=== PATIENT | female | born 1945 | race Caucasian/White ===

== ENCOUNTER 2020-05-16 13:46 | Emergency (ER) | payer OTHER, MEDICAID, SELFPAY ==
[2020-05-16 13:59] VITALS: BP 135/83; PULSE 60; RESP 16; TEMP 37; O2SAT 95; BMI 33.8
--- NOTE | 2020-05-16 14:03 | CT_ITS ---
EXAMINATION: CT CHEST WITHOUT CONTRAST CLINICAL INFORMATION: Active TB. Question positive PPD test COMPARISON: None TECHNIQUE: Multidetector volumetric CT imaging of the chest was done. Axial MIP volume rendering provided. Sagittal and coronal reformatted images were obtained. This CT examination was performed using dose optimization techniques as appropriate, variously including the following: *Automated exposure control *Adjustment of mA and/or kV according to patient size (this includes techniques or standardized protocols for targeted exams where dose is matched to indication/reason for exam; i.e. 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 LUNGS: The lungs are well-expanded. There are several pulmonary nodules. A 2 mm pulmonary nodule right upper lobe image 46/5, 2 nodules measuring 2 mm on image 51/5, 3 mm nodule left upper lobe image 75/5, 3 mm nodule left upper lobe axial image 93/5. No additional parotid nodules, mass or consolidation seen. There is left basilar compressive atelectasis. MEDIASTINUM: The thyroid lobes are symmetrical and normal. The central trachea and the bronchi widely patent. Heart size and the great vessels are normal caliber. There are pacer electrodes in right atrium and right ventricle. No abnormal lymph nodes seen. There are coronary artery calcifications. No pericardial effusion seen PLEURA: There is small left pleural effusion with underlying atelectasis. AXILLA: No abnormal lymph nodes seen. There is a pacer hardware along the left anterior abdomen. UPPER ABDOMEN: Visualized liver, spleen, pancreas and bilateral adrenal glands are unremarkable. OSSEOUS STRUCTURES: No lytic or sclerotic process seen. CT/CT chest wo con IMPRESSION: Several pulmonary nodules. No abnormal mediastinal or axillary lymph nodes seen. Small left pleural effusions with mild compressive atelectasis left lung base.
--- NOTE | 2020-05-16 15:04 | ED.GENADULT ---
HPI - General Adult General Chief complaint: General Medical Stated complaint: + TB TEST PER SNF, NO COMPLAINTS FROM PT Time Seen by Provider: 05/16/20 14:03 Source: patient Mode of arrival: EMS Limitations: language barrier History of Present Illness HPI narrative: patient sent to the ED from [facility] due to positive PPD results. Patient is asymptomatic. Related Data Allergies Allergy/AdvReac Type Severity Reaction Status Date / Time Sulfa (Sulfonamide Allergy Unknown Unknown Verified 05/16/20 14:10 Antibiotics) tuberculin, purified protein Allergy Unknown Verified 05/16/20 14:10 deriva [From Tubersol] Review of Systems Review of Systems: Yes all other systems are reviewed and are negative Constitutional: Constitutional: Reports as per HPI, Reports no additional constitutional complaints, Denies anorexia, Denies body ache(s), Denies chills, Denies fatigue, Denies fever(s), Denies frequent falls and Denies headache(s) Eyes: Eyes: Reports as per HPI, Reports no additional eye complaints, Denies blind spots, Denies blurry vision, Denies exophthalmos, Denies change in vision, Denies decreased night vision, Denies diplopia, Denies itchy eyes, Denies loss of peripheral vision, Denies loss of vision and Denies other visual disturbances ENT: Reports system reviewed and no additional complaints, except as documented, Reports as per HPI and Denies headache(s) Cardiovascular: Cardiovascular: Reports as per HPI, Reports no additional cardiovascular complaints, Denies painful fingertips, Denies chest pain, Denies chest pain at rest, Denies chest pain with activity, Denies Epigastric Pain, Denies radiating jaw, neck or arm pain, Denies dyspnea, Denies dyspnea on exertion, Denies orthopnea and Denies paroxysmal nocturnal dyspnea Respiratory: Respiratory: Reports as per HPI, Reports no additional respiratory complaints, Denies no additional respiratory complaints, Denies change in phlegm color, Denies chest congestion, Denies cough, Denies dyspnea and Denies dyspnea on exertion Gastrointestinal: Gastrointestinal: Reports as per HPI, Reports no additional gastrointestinal complaints, Denies abdominal pain, Denies belching, Denies melena, Denies bloating, Denies hematochezia, Denies dyspepsia, Denies heartburn, Denies diarrhea, Denies loose stools and Denies nausea Genitourinary: Genitourinary: Denies dysuria, Denies pelvic pain, Denies urinary incontinence, Denies urinary hesitancy and Denies urinary urgency Neurologic: Denies frequent falls, Denies headache(s) and Denies loss of vision Endocrine: Endocrine: Denies fatigue Allergic/Immunologic: Allergic/Immunologic: Denies itchy eyes PMFSH Past Medical History Medical History (Updated 05/16/20 @ 16:41 by SUMA Desir) Anxiety Depressed affect Dysphagia HTN (hypertension) Hyperlipemia Pacemaker Parkinson disease Paroxysmal A-fib Restless leg syndrome Surgical History (Updated 05/16/20 @ 14:08 by Aide Clark) History of bladder surgery Social History Social History Smoking Status: Never smoker Use of substances other than those prescribed or required for medical reasons: No Advance Directives: No Advance Directives Information Provided: No Physical Exam Vital Signs: Vital Signs: Vital Signs Temp Pulse Resp BP Pulse Ox 05/16/20 16:30 97.9 F 59 18 177/73 H 95 05/16/20 13:59 98.6 F 60 16 135/83 95 Body Mass Index 33.8 Const: General: cooperative, healthy appearing, comfortable, no acute distress, well developed and awake Orientation/consciousness: oriented to person, oriented to place, oriented to time and patient oriented x3 HENMT: Head: Yes normal to inspection and Yes No palpable skull fracture present Eyes: General: appearance normal, both eyes and all related structures Neck: Neck: Yes normal visual inspection, Yes full ROM, Yes no lymphadenopathy, No no meningeal signs, No positive Brudzinski's sign and No positive Kernig's sign Chest: Chest palpation & inspection: normal inspection of the chest, normal palpation of entire chest wall and normal inspection of the chest Breast/axilla inspection: inspection of breasts abnormal Resp: Effort & Inspection: normal respiratory effort, able to speak in complete sentences, normal respiratory pattern, no grunting, not labored, no nasal flaring, no pursed lip breathing, no segmental paradox chest wall movement, no stridor, not tachypneic, no tracheal deviation and no tripod positioning Auscultation: clear to auscultation bilaterally Cardio: Jugular venous distension: no JVD Heart sounds: S1 normal heart sound present and S2 normal heart sound present GI: Inspection: Yes normal to inspection and No abdominal wall ecchymosis Palpation (GI): Soft to palpation, not firm, nontender, no guarding and not rigid : General: No CVA tenderness and Yes no CVA tenderness Back/Spine/Pelvis: Back: no CVA tenderness, No CVA tenderness and No back tenderness Skin: Other: bilateral forearms positive for raised erythematous PPD est Neuro: Other: Patient has tremors due to history Parkinson's. General: oriented to person, oriented to place, oriented to time, patient oriented x3, No no meningeal signs and CN's II-XI intact bilaterally Cranial nerves: Yes CN's II-XII intact bilaterally Extrem: General: Yes normal to inspection and Yes full ROM Course Course Course Narrative: Will send patient for dry. Chest CT to evaluate for possible active TB. Patient presently asymptomatic. Presently no labs indicated. Reevaluation(s) Reevaluation #1: Chest CT negative for any cavitation or description that states active TB. Patient recommended to follow-up with pulmonology for reading of multiple pulmonary nodules, will need to rule of possible pulmonary cancer. patient states she always test positive for PPD TB test. Patient is from [place]. Case and imaging discussed with Dr. Vera who agrees that patient is not having active TB and can be discharged.. Patient discharge papers prepared with copy of Chest CT scan for [facility]. Time: 16:[address] [facility] Narrative Medical decision making narrative: Patient does not have active TB Discharge Plan Discharge Clinical Impression: Pulmonary nodule Patient Disposition: Home, Self-Care Instructions: Pulmonary Nodules (ED) Additional Instructions: Return to the ED for any fever, chills chest pain, shortness of breath, weakness, dizziness, or any other concerning symptoms. Please follow-up with the PCP Print Language: Ukrainian
--- NOTE | 2020-05-16 15:44 | PC.NURSE ---
pt resting comfortably in the stretcher, denies pain/cough, vs stable
[2020-05-16 16:30] VITALS: BP 177/73; PULSE 59; RESP 18; TEMP 36.6; O2SAT 95
--- NOTE | 2020-05-16 17:26 | PC.NURSE ---
attempting to call [facility] to give report but no answer at this time
== END 2020-05-16 17:45 | disposition home or self-care (01) ==
PROVIDERS: Emergency Provider Emergency Medicine
DX: R91.1 Solitary pulmonary nodule (principal); R76.11 Nonspecific reaction to tuberculin skin test without active tuberculosis; Z79.899 Other long term (current) drug therapy
CPT/HCPCS: 71250; 99284

== ENCOUNTER → 2020-05-26 14:40 | Outpatient (BNVA) | payer OTHER, MEDICAID, SELFPAY | PROVIDERS: PCP Family Medicine; Visit Provider Internal Medicine | DX: Z76.89 Persons encountering health services in other specified circumstances (principal) ==

== ENCOUNTER 2020-08-16 12:37 | Emergency (ER) | payer OTHER, MEDICAID, MEDICARE, SELFPAY ==
[2020-08-16 12:47] VITALS: BP 162/100; BP 174/101; PULSE 62; PULSE 75; RESP 18; TEMP 36.8; O2SAT 97; BMI 28.9
--- NOTE | 2020-08-16 12:52 | ED.SEIZURE ---
HPI - Seizure General Chief Complaint: Seizure Stated Complaint: SEIZURE @ 11:45AM Time Seen by Provider: 08/16/20 12:52 Source: EMS and RN notes reviewed Mode of arrival: EMS Limitations: altered mental status History of Present Illness HPI Narrative: Patient from detention with history of Parkinson disease lung nodules in the CT scan on 05/16 brought by EMS for witnessed seizure lasted for 1 minute, generalized tonic-clonic with postictal on arrival. No head injury no vomiting no incontinence no prior history of seizures MD complaint: seizure Description of Episode: loss of consciousness and tonic-clonic movement Duration of episode: 1 -: minutes(s) Witnessed: Yes - by Bystander Trauma: No Seizure History: No Place: snf Treatments prior to arrival: none Related Data Previous Rx's Medication Instructions Recorded aspirin 81 mg tablet,delayed 81 mg PO DAILY 30 Days #30 tab 05/26/20 release atorvastatin 40 mg tablet 40 mg PO DAILY #30 tab 05/26/20 carbidopa 25 mg tablet 25 mg PO Q6H #120 tab 05/26/20 carbidopa 50 mg-levodopa 200 1 tab PO 6XD #150 tab 05/26/20 mg-entacapone 200 mg tablet clonazepam 0.25 mg disintegrating 0.25 mg PO DAILY #30 tab 05/26/20 tablet docusate sodium 100 mg capsule 100 mg PO DAILY #30 cap 05/26/20 escitalopram oxalate 10 mg tablet 10 mg PO DAILY #30 tab 05/26/20 isosorbide mononitrate 30 mg 30 mg PO DAILY #30 tab 05/26/20 tablet,extended release 24 hr magnesium hydroxide 400 mg/5 mL 5 ml PO DAILY PRN #3000 ml 05/26/20 oral suspension metoprolol tartrate 25 mg tablet 12.5 mg PO BID #60 tab 05/26/20 mirtazapine 7.5 mg tablet 7.5 mg PO BEDTIME #30 tab 05/26/20 polyethylene glycol 3350 17 17 g PO DAILY #238 g 05/26/20 gram/dose oral powder ropinirole 0.5 mg tablet 0.5 mg PO TID #90 tab 05/26/20 sennosides 8.6 mg capsule 8.6 mg PO BEDTIME PRN #30 cap 05/26/20 sotalol 80 mg tablet 80 mg PO BID 30 Days #60 tab 05/26/20 levetiracetam [Keppra] 250 mg PO BID #60 tab 08/16/20 Allergies Allergy/AdvReac Type Severity Reaction Status Date / Time Sulfa (Sulfonamide Allergy Unknown Unknown Verified 05/26/20 15:19 Antibiotics) tuberculin, purified protein Allergy Unknown Verified 05/26/20 15:19 deriva [From Tubersol] Review of Systems Review of Systems: Yes Unobtainable due to mental status (Postictal) [facility] Past Medical History Medical History Anxiety Depressed affect Dysphagia HTN (hypertension) Hyperlipemia 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 Pacemaker Parkinson disease Paroxysmal A-fib Pulmonary nodules/lesions, multiple Restless leg syndrome Surgical History History of bladder surgery Social History Social History Alcohol intake: unknown Smoking Status: Unknown if ever smoked Use of substances other than those prescribed or required for medical reasons: No Advance Directives: No Advance Directives Information Provided: No Physical Exam Vital Signs: Vital Signs: Last Vital Signs Temp 98.3 F 08/16/20 12:47 Pulse 63 08/16/20 16:00 Resp 18 08/16/20 16:00 BP 97/50 L 08/16/20 16:00 Pulse Ox 93 08/16/20 16:00 Body Mass Index 28.9 Const: General: healthy appearing, comfortable, no acute distress and patient obtunded Orientation/consciousness: patient obtunded HENMT: Head: Yes normocephalic and Yes atraumatic Ears: hearing grossly normal bilaterally Face and sinus: Yes normal facial exam Mouth: Normal oral and palatal mucosa present and lip abnormal (Superficially bite lower lip on the left side) Eyes: General: appearance normal, both eyes and all related structures Conjunctivae: conjunctivae normal Sclerae: sclerae normal Pupils: Equal, round and reactive pupils present Neck: Neck: Yes normal visual inspection, Yes full ROM, Yes no lymphadenopathy, Yes no meningeal signs, Yes trachea midline and Yes supple Chest: Chest palpation & inspection: normal inspection of the chest and normal palpation of entire chest wall Resp: Effort & Inspection: normal respiratory effort Auscultation: clear to auscultation bilaterally, no crackles, no rales, no rhonchi and no wheezes Cardio: Jugular venous distension: no JVD Rate: regular rate Rhythm: regular rhythm Heart sounds: S1 normal heart sound present and S2 normal heart sound present Peripheral pulses: Peripheral pulses 2+ throughout GI: Inspection: Yes normal to inspection Palpation (GI): Soft to palpation, nontender and no guarding : General: Yes no CVA tenderness Back/Spine/Pelvis: Back: no CVA tenderness Thoracic/Lumbar Spine: thoracic and lumbar spine normal to inspection Skin: General skin exam: no rashes or lesions noted Neuro: General: moves all extremities, no meningeal signs and patient obtunded Cranial nerves: Yes Equal, round and reactive pupils present Extrem: General: Yes normal to inspection, Yes no calf tenderness and No pedal edema Course Course Course Narrative: Patient with new onset seizure given Ativan and Keppra initial workup showed elevated troponin with T inversion in anterior leads no old EKGs available. Patient denied any chest pain will repeat a troponin. Started on Keppra twice daily 250 mg and advised to follow-up with neurologist. Patient signed out Dr. Rivera pending repeat troponin report MDM - Seizure MDM Narrative Medical decision making narrative: Patient with new onset seizure with with nonspecific EKG changes and elevated troponin patient denied any chest pain received Ativan and Keppra in the ER will recheck the troponin plan to continue on Keppra and follow up as outpatient with neurologist Differential Diagnosis Differential diagnosis: Likely new onset seizure Lab Data Attestation: I reviewed the patient's lab results. Result diagrams: 08/16/20 13:03 08/16/20 13:03 Labs: Lab Results 08/16/20 08/16/20 08/16/20 Range/Units 13:03 13:03 13:03 WBC 9.3 (4.8-10.8) X10*3/uL RBC 4.52 (4.20-5.50) X10*6/uL Hgb 12.2 (12.0-16.0) g/dl Hct 36.8 L (37-47) % MCV 81.4 (80-98) fL MCH 27.0 (27.0-33.0) pg MCHC 33.2 (31.0-35.0) g/dl RDW 15.1 (11.0-16.0) % Plt Count 310 (160-400) X10*3/uL MPV 12.3 (9.4-12.3) fL Immature Gran % (Auto) 0.5 H (0.0-0.4) % Neut % (Auto) 88.8 H (45-73) % Lymph % (Auto) 7.3 L (20-40) % Pratt % (Auto) 3.2 (2-11) % Eos % (Auto) 0.1 (0-4) % Baso % (Auto) 0.1 (0-2) % Lymph # (Auto) 0.7 L (1.2-4.9) X10*3/uL Pratt # (Auto) 0.3 (0.1-1.2) X10*3/uL Eos # (Auto) 0.0 (0.0-0.4) X10*3/uL Baso # (Auto) 0.0 (0.0-0.2) X10*3/uL Abs Immat Gran (auto) 0.05 H (0.00-0.03) X10*3/uL Absolute Neuts (auto) 8.2 (2.0-8.3) X10*3/uL Absolute Nucleated RBC 0.060 H (0.0-0.012) X10*3/uL Nucleated RBC % (auto) 0.6 H (0.0-0.2) /100WBC Smear Tech's Comments VERIFIED PT 15.3 H (10.8-13.0) SEC INR 1.3 H (0.9-1.1) APTT 28.0 (24.1-38.0) SEC Sodium 143 (135-145) mmol/L Potassium 3.6 (3.3-5.1) mmol/l Chloride 100 (96-108) mmol/L Carbon Dioxide 20 L (22-29) mmol/L Anion Gap 27 H (12-20) BUN 31 H (9-16) mg/dL Creatinine 0.74 (0.5-1.4) mg/dL Estim Creat Clear Calc 55.4 Estimated GFR > 60 Random Glucose 126 H (60-115) mg/dL Calcium 9.2 (8.4-10.2) mg/dL Magnesium 2.2 (1.6-2.6) mg/dL Total Bilirubin 0.9 (0.0-1.0) mg/dL Direct Bilirubin 0.5 (0.0-0.5) mg/dL AST 10 (5-31) U/L ALT < 6 (0-31) U/L Alkaline Phosphatase 133 H (39-117) U/L Troponin I High Sens (<3.5-17.0) ng/L Total Protein 6.5 (6.5-8.0) g/dL Albumin 3.7 (3.5-5.0) g/dL Urine Color Urine Appearance Urine pH (5.0-8.0) Ur Specific Strandquist (1.005-1.025) Urine Protein (NEG-TRACE) MG/DL Urine Glucose (UA) (NEG) MG/DL Urine Ketones (NEG) MG/DL Urine Blood (NEG) Urine Nitrite (NEG) Ur Leukocyte Esterase (NEG) Urine RBC (0) /HPF Urine WBC (0-4) /HPF Ur Squamous Epith Cells /LPF Calcium Oxalate Crystal /LPF Amorphous Sediment /LPF Urine Bacteria /LPF Urine Mucus /LPF 08/16/20 08/16/20 Range/Units 13:03 14:27 WBC (4.8-10.8) X10*3/uL RBC (4.20-5.50) X10*6/uL Hgb (12.0-16.0) g/dl Hct (37-47) % MCV (80-98) fL MCH (27.0-33.0) pg MCHC (31.0-35.0) g/dl RDW (11.0-16.0) % Plt Count (160-400) X10*3/uL MPV (9.4-12.3) fL Immature Gran % (Auto) (0.0-0.4) % Neut % (Auto) (45-73) % Lymph % (Auto) (20-40) % Pratt % (Auto) (2-11) % Eos % (Auto) (0-4) % Baso % (Auto) (0-2) % Lymph # (Auto) (1.2-4.9) X10*3/uL Pratt # (Auto) (0.1-1.2) X10*3/uL Eos # (Auto) (0.0-0.4) X10*3/uL Baso # (Auto) (0.0-0.2) X10*3/uL Abs Immat Gran (auto) (0.00-0.03) X10*3/uL Absolute Neuts (auto) (2.0-8.3) X10*3/uL Absolute Nucleated RBC (0.0-0.012) X10*3/uL Nucleated RBC % (auto) (0.0-0.2) /100WBC Smear Tech's Comments PT (10.8-13.0) SEC INR (0.9-1.1) APTT (24.1-38.0) SEC Sodium (135-145) mmol/L Potassium (3.3-5.1) mmol/l Chloride (96-108) mmol/L Carbon Dioxide (22-29) mmol/L Anion Gap (12-20) BUN (9-16) mg/dL Creatinine (0.5-1.4) mg/dL Estim Creat Clear Calc Estimated GFR Random Glucose (60-115) mg/dL Calcium (8.4-10.2) mg/dL Magnesium (1.6-2.6) mg/dL Total Bilirubin (0.0-1.0) mg/dL Direct Bilirubin (0.0-0.5) mg/dL AST (5-31) U/L ALT (0-31) U/L Alkaline Phosphatase (39-117) U/L Troponin I High Sens 55.1 H (<3.5-17.0) ng/L Total Protein (6.5-8.0) g/dL Albumin (3.5-5.0) g/dL Urine Color DARK YELLOW Urine Appearance HAZY Urine pH 6.5 (5.0-8.0) Ur Specific Strandquist >= 1.030 H (1.005-1.025) Urine Protein 1+ H (NEG-TRACE) MG/DL Urine Glucose (UA) NEG (NEG) MG/DL Urine Ketones >=80 (NEG) MG/DL Urine Blood NEG (NEG) Urine Nitrite NEG (NEG) Ur Leukocyte Esterase NEG (NEG) Urine RBC 0 (0) /HPF Urine WBC 0 (0-4) /HPF Ur Squamous Epith Cells 1+ /LPF Calcium Oxalate Crystal 1+ /LPF Amorphous Sediment 1+ /LPF Urine Bacteria NONE /LPF Urine Mucus 3+ /LPF ECG Data Attestation: I personally reviewed and interpreted this ECG as follows: Interpretation: Normal sinus rhythm with heart rate of 72 beats per minute T inversion in V1 to V6 Charisma little areas no previous EKGs available no acute ST elevation normal axis, prolonged QT interval to [address] T wave changes Discharge Plan Discharge Clinical Impression: New onset seizure Patient Disposition: Xfer SNF Instructions: Epilepsy (ED) Additional Instructions: Take medication as prescribed. Follow-up with neurologist Prescriptions: New levetiracetam [Keppra] 250 mg tablet 250 mg PO BID Qty: 60 RF: 0
--- NOTE | 2020-08-16 12:55 | ECG_ITS ---
Test Reason : SIEZURE Blood Pressure : / mmHG Vent. Rate : 072 BPM Atrial Rate : 072 BPM P-R Int : 112 ms QRS Dur : 092 ms QT Int : 460 ms P-R-T Axes : 023 -15 -38 degrees QTc Int : 503 ms Sinus rhythm with Premature atrial complexes ST & T wave abnormality, consider inferior ischemia ST & T wave abnormality, consider anterolateral ischemia Prolonged QT Abnormal ECG No previous ECGs available Referred By: Marcio Rahman Electronically Signed By:Nirmal Magaña
--- NOTE | 2020-08-16 12:55 | CT_ITS ---
EXAMINATION: CT BRAIN WITHOUT CONTRAST. CHEST X-RAY. CLINICAL INFORMATION: New onset of seizures. COMPARISON: None TECHNIQUE: 5 mm thin axial and reformatted 2 mm thin sagittal and coronal images of brain were obtained. DLP 698. Chest AP upright portable FINDINGS: BRAIN: There is no acute intra-axial, extra-axial bleed, masses or midline shift. There is no acute infarct in evolution. The lateral ventricles are symmetrical but enlarged. There is diffuse periventricular hypodensity in both cerebral hemispheres without mass effect or edema. Bone windows reveal no calvarial abnormality. There is no scalp abnormality seen. Bilateral paranasal sinuses are well-aerated with air fluid level left sphenoid sinus. CHEST X-RAY: The lungs are hypoexpanded but clear. There is mild blunting of left CP angle from pleural thickening or effusion. The heart size and pulmonary vascularity is normal. There are dual pacer electrodes in right atrium and right ventricle. No gross bony abnormality seen CT/CT head/brain wo con IMPRESSION: No acute intracranial process seen. Age-related cerebral volume loss with chronic small vessel ischemic changes. Mild blunting of left CP angle from pleural effusion or thickening. Otherwise lungs are clear.
[2020-08-16] MEDS: LORazepam 2 MG/ML VIAL 1 MG IVPUSH (13:09)
[2020-08-16 13:10] VITALS: BP 146/83; PULSE 75; RESP 18; O2SAT 97
[2020-08-16 13:16] LABS: Basophils Percent Auto 0.1 % (0-2); Eosinophils Percent Auto 0.1 % (0-4); Hematocrit 36.8 % (37-47); Hemoglobin 12.2 g/dl (12.0-16.0); Imm Gran Abs Auto 0.05 X10*3/uL (0.00-0.03); Imm Gran Pct Auto 0.5 % (0.0-0.4); Lymphocytes Absolute Auto 0.7 X10*3/uL (1.2-4.9); Lymphocytes Percent Auto 7.3 % (20-40); MANUAL DIFF FLAG SCAN; Mean Corpuscular HGB Conc 33.2 g/dl (31.0-35.0); Mean Corpuscular Volume 81.4 fL (80-98); Mean Platelet Volume 12.3 fL (9.4-12.3); Monocytes Absolute Auto 0.3 X10*3/uL (0.1-1.2); Monocytes Percent Auto 3.2 % (2-11); NRBC Pct Auto 0.6 /100WBC (0.0-0.2); Neutrophils Absolute Auto 8.2 X10*3/uL (2.0-8.3); Neutrophils Percent Auto 88.8 % (45-73); Platelet Count 310 X10*3/uL (160-400); Red Blood Count 4.52 X10*6/uL (4.20-5.50); Red Cell Distribution Width 15.1 % (11.0-16.0); SCAN SMEAR FLAG 1; White Blood Count 9.3 X10*3/uL (4.8-10.8)
[2020-08-16 13:40] LABS: SLIDE REVIEW VERIFIED
[2020-08-16 13:45] LABS: INTERNATIONAL NORM RATIO 1.3 (0.9-1.1); Prothrombin Time 15.3 SEC (10.8-13.0)
--- NOTE | 2020-08-16 13:49 | PC.NURSE ---
Spoke to Daughter Komal and updated on plan of care, contact [phone]
[2020-08-16 13:52] LABS: Alanine Aminotransferase < 6 U/L (0-31); Albumin Level 3.7 g/dL (3.5-5.0); Alkaline Phosphatase 133 U/L (39-117); Anion Gap 27 (12-20); Aspartate Amino Transferase 10 U/L (5-31); Bilirubin Direct 0.5 mg/dL (0.0-0.5); Bilirubin Total 0.9 mg/dL (0.0-1.0); Blood Urea Nitrogen 31 mg/dL (9-16); Calcium 9.2 mg/dL (8.4-10.2); Carbon Dioxide 20 mmol/L (22-29); Chloride 100 mmol/L (96-108); Creatinine Clr Calc Pharmacy 55.4; Estimated Glomerular Filt Rate > 60; Glucose Random 126 mg/dL (60-115); Magnesium 2.2 mg/dL (1.6-2.6); Potassium 3.6 mmol/l (3.3-5.1); Sodium 143 mmol/L (135-145); Total Protein 6.5 g/dL (6.5-8.0)
[2020-08-16 13:56] LABS: Troponin-I High Sensitivity 55.1 ng/L (<3.5-17.0)
[2020-08-16] MEDS: 0.9 % Sodium Chloride 1,000 ML 999 ML IVCONT ×2 (14:31→17:33)
[2020-08-16 14:36] LABS: Glucose Urine UA NEG (NEG); Leukocyte Esterase Urine NEG (NEG); Nitrite Urine NEG (NEG); PH 6.5 (5.0-8.0); Specific Gravity - Urine >= 1.030 (1.005-1.025); Urine Blood NEG (NEG); Urine Ketones >=80 MG/DL (NEG); Urine Protein 1+ MG/DL (NEG-TRACE)
[2020-08-16 14:38] LABS: Color Urine DARK YELLOW
[2020-08-16 14:39] LABS: Appearance Urine HAZY
[2020-08-16 14:43] LABS: Amorphous Sediment Urine 1+ /LPF; Calcium Oxalate Crystals Urine 1+ /LPF; Mucus Urine 3+ /LPF; RBC Urine 0 /HPF (0); Squamous Epithelial Cell Urine 1+ /LPF; WBC Urine 0 /HPF (0-4)
[2020-08-16] MEDS: levETIRAcetam in NaCl (iso-os) 1,000 MG/100 ML PIGGYBACK 400 MG IV (14:58)
[2020-08-16 16:00] VITALS: BP 97/50; PULSE 63; RESP 18; O2SAT 93
--- NOTE | 2020-08-16 16:41 | PC.NURSE ---
Pt somnolent, tactile stimuli to awake. Soft BPs in 90s. Repeat troponin drawn by this RN. nsr on tele. No seizure activity noted while here in ED
--- NOTE | 2020-08-16 17:04 | ECG_ITS ---
Test Reason : REPEAT Blood Pressure : / mmHG Vent. Rate : 070 BPM Atrial Rate : 070 BPM P-R Int : 140 ms QRS Dur : 082 ms QT Int : 480 ms P-R-T Axes : 079 -08 214 degrees QTc Int : 518 ms Atrial-paced rhythm with occasional supraventricular complexes and Premature supraventricular complexes ST & T wave abnormality, consider inferior ischemia ST & T wave abnormality, consider anterolateral ischemia Prolonged QT Abnormal ECG When compared with ECG of 16-AUG-2020 13:40, Electronic atrial pacemaker has replaced Sinus rhythm Referred By: Marcio Rahman Electronically Signed By:Nirmal Magaña
[2020-08-16 17:30] VITALS: BP 88/53; PULSE 68; RESP 16; O2SAT 94
[2020-08-16 17:32] LABS: Troponin-I High Sensitivity 60.3 ng/L (<3.5-17.0)
[2020-08-16 18:02] VITALS: BP 104/43; PULSE 60; RESP 16; O2SAT 93
--- NOTE | 2020-08-16 18:50 | PC.NURSE ---
attempted to call [facility] x 2, no answer. pt to return back, stuart Sauceda aware
== END 2020-08-16 20:06 | disposition skilled nursing facility (03) ==
PROVIDERS: Internal Medicine; Emergency Provider Emergency Medicine Emergency Medical Services; PCP Internal Medicine
DX: G40.909 Epilepsy, unspecified, not intractable, without status epilepticus (principal); I10 Essential (primary) hypertension; Z95.0 Presence of cardiac pacemaker; G20 Parkinson's disease; I48.0 Paroxysmal atrial fibrillation; Z79.82 Long term (current) use of aspirin; Z79.899 Other long term (current) drug therapy
CPT/HCPCS: 36415; 70450; 71045; 80048; 80076; 81001; 83735; 84484; 85025; 85610; 85730; 93005; 96361; 96374; 96375; 99284; J1953; J2060

== ENCOUNTER 2020-09-03 15:30 | Inpatient (IN) | payer OTHER, MEDICAID, SELFPAY ==
[2020-09-03] VITALS (9 sets, daily range): BP systolic 75–96; BP diastolic 42–56; PULSE 63–96; RESP 16–22; TEMP 36.8–37.1; O2SAT 94–100; BMI 24.3
--- NOTE | ~2020-09-03 | US_ITS ---
EXAMINATION: US VENOUS WITH DOPPLER UPPER EXTREMITY, LEFT CLINICAL INFORMATION: Rule out DVT COMPARISON: None TECHNIQUE: Ultrasound of the upper extremity is performed using compression sonography and color and pulse Doppler flow with assessment of augmentation of flow. There is also imaging and Doppler assessment of the jugular and subclavian veins. Spectral analysis with color-flow imaging is performed. FINDINGS: Respiratory variation, normal compression, and augmented flow are noted throughout the upper extremity including the axillary, brachial, cubital, and radial and ulnar veins. (Only one brachial vein is seen, possibly an anatomic variant). There is normal flow in the internal jugular and subclavian veins. There is no visible deep or superficial thrombophlebitis. If the patient's symptoms progress, a followup ultrasound in 5 -7 days might be of value to exclude proximal propagation from a nonvisualized distal arm vein. US/US venous duplex UE LT IMPRESSION: No DVT demonstrated in the left upper extremity.
--- NOTE | ~2020-09-03 | XR_ITS ---
EXAMINATION: XR CHEST CLINICAL INFORMATION: Failure to thrive COMPARISON: 08/16/2020 TECHNIQUE: Frontal view of the chest was obtained. FINDINGS: Compared to the prior study there's been no significant interval change allowing for differences in technique. Heart size is normal. Left bipolar pacemaker present. No infiltrates or lung masses are seen. Again noted is either a small left effusion or left-sided pleural thickening. XR/XR chest 1V IMPRESSION: No acute intrathoracic disease.
--- NOTE | ~2020-09-03 | US_ITS ---
EXAMINATION: US VENOUS ULTRASOUND WITH DOPPLER LOWER EXTREMITY, LEFT CLINICAL INFORMATION: Left leg swelling COMPARISON: None TECHNIQUE: Ultrasound of the deep veins is performed from the hip to the calf with compression sonography and color and pulse Doppler assessment. Spectral analysis with color-flow imaging is performed. FINDINGS: There is normal venous compression and respiratory variation and augmented flow. The visualized common femoral vein, superficial femoral vein, profunda femoral vein, popliteal vein, and the trifurcation region shows no evidence of deep venous thrombosis. There is no significant popliteal fossa cyst. US/US venous duplex LE LT IMPRESSION: No DVT demonstrated in the left lower extremity.
--- NOTE | ~2020-09-03 | CT_ITS ---
EXAMINATION: CT HEAD WITHOUT CONTRAST CLINICAL INFORMATION: Seizure COMPARISON: 08/16/2020 TECHNIQUE: Contiguous axial imaging was performed from the skull base to vertex without intravenous contrast. This CT examination was performed using dose optimization techniques as appropriate, variously including the following: * Automated exposure control * Adjustment of mA and/or kV according to patient size (this includes techniques or standardized protocols for targeted exams where dose is matched to indication/reason for exam; i.e. extremities or head) Use of iterative reconstruction technique DLP: 763 mGy-cm. FINDINGS: There is no evidence of acute intracranial hemorrhage or territorial infarction. No abnormal mass effect or midline shift is seen. Turk to white matter differentiation is well preserved. No extra-axial fluid collections are identified. No hydrocephalus. Proportional prominence of the ventricles and sulcal spaces is consistent with mild volume loss. Patchy periventricular and deep white matter hypoattenuation is consistent with mild small vessel ischemic changes. The osseous structures and soft tissues are normal. There is near complete opacification of the right mastoid air cells. The left mastoid air cells are well aerated. Partially opacified left sphenoid sinus and left posterior ethmoid air cells. CT/CT head/brain wo con IMPRESSION: No acute intracranial pathology.
--- NOTE | ~2020-09-03 | XR_ITS ---
EXAMINATION: XR CHEST CLINICAL INFORMATION: Central line placement COMPARISON: Chest radiograph earlier today TECHNIQUE: Frontal view of the chest was obtained. FINDINGS: Right IJ line has been placed with its tip in the distal SVC. Compared to the study earlier today, the lungs are hypoexpanded. No pneumothorax is seen. Again noted is either pleural thickening or a small left pleural effusion. XR/XR chest 1V IMPRESSION: No complications status post right IJ line placement with tip in excellent position.
--- NOTE | 2020-09-03 16:25 | ED.GENADULT ---
HPI - General Adult General Chief complaint: Failure to Thrive Stated complaint: failure to thrive Time Seen by Provider: 09/03/20 16:22 Source: EMS and superintendent meters Mode of arrival: EMS Limitations: altered mental status History of Present Illness HPI narrative: This is a 74-year-old female who brought in by ambulance from group home for complaint of generalized weakness and failure to thrive with decreased p.o. intake, as reported family are discussing inserting feeding tube. Patient emergency department is poor historian even with using the superintendent meters service unable to answer all questions, patient has no complaint at this point. As reportedly from group home patient has lost weight due to decreased p.o. intake. Patient initially in the emergency department appeared dehydrated and hypotensive. Related Data Home Medications Medication Instructions Recorded Confirmed aspirin 81 mg PO DAILY 09/03/20 09/03/20 atorvastatin 40 mg PO DAILY 09/03/20 09/03/20 bveeqbmdx-ortvhslf-[id number] 1 tab PO 5XD 09/03/20 09/03/20 mirtazapine [Remeron] 15 mg PO DAILY 09/03/20 09/03/20 omeprazole 20 mg PO BID 09/03/20 09/03/20 promethazine 12.5 mg PO DAILY PRN 09/03/20 09/03/20 sucralfate 10 ml PO Q6H 09/03/20 09/03/20 Previous Rx's Medication Instructions Recorded clonazepam 0.25 mg disintegrating 0.25 mg PO DAILY #30 tab 05/26/20 tablet docusate sodium 100 mg capsule 100 mg PO DAILY #30 cap 05/26/20 isosorbide mononitrate 30 mg 30 mg PO DAILY #30 tab 05/26/20 tablet,extended release 24 hr magnesium hydroxide 400 mg/5 mL 5 ml PO DAILY PRN #3000 ml 05/26/20 oral suspension metoprolol tartrate 25 mg tablet 12.5 mg PO BID #60 tab 05/26/20 polyethylene glycol 3350 17 17 g PO DAILY #238 g 05/26/20 gram/dose oral powder ropinirole 0.5 mg tablet 0.5 mg PO TID #90 tab 05/26/20 sennosides 8.6 mg capsule 8.6 mg PO BEDTIME PRN #30 cap 05/26/20 sotalol 80 mg tablet 80 mg PO BID 30 Days #60 tab 05/26/20 levetiracetam [Keppra] 250 mg PO BID #60 tab 08/16/20 Allergies Allergy/AdvReac Type Severity Reaction Status Date / Time Sulfa (Sulfonamide Allergy Unknown Unknown Verified 05/26/20 15:19 Antibiotics) tuberculin, purified protein Allergy Unknown Verified 05/26/20 15:19 deriva [From Tubersol] Review of Systems Review of Systems: Yes Unobtainable due to mental condition [facility] Past Medical History Medical History Anxiety Depressed affect Dysphagia HTN (hypertension) Hyperlipemia 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 Pacemaker Parkinson disease Paroxysmal A-fib Pulmonary nodules/lesions, multiple Restless leg syndrome Surgical History History of bladder surgery Social History Social History Alcohol intake: never Smoking Status: Never smoker Use of substances other than those prescribed or required for medical reasons: No Advance Directives: No Advance Directives Information Provided: Yes Physical Exam Vital Signs: Vital Signs: Last Vital Signs Temp 98.3 F 09/03/20 17:45 Pulse 63 09/03/20 20:11 Resp 20 09/03/20 20:11 BP 85/55 L 09/03/20 20:11 Pulse Ox 97 09/03/20 20:11 Body Mass Index 24.3 Vital signs have been reviewed as normal and appeared to be correct. Blood pressure in the low range. Heart rate normal. Respiration rate normal. Temperature normal. Oxygen saturation normal. Appearance: No acute distress, cachectic, appear dehydrated Head: Normal external exam. Normocephalic. Atraumatic. No [place] signs noted. No raccoon eyes noted Eyes: PERRLA. EOMI. Conjunctiva and sclera normal. Eyelids normal. ENT: EAC normal. TM's Normal. Pharynx normal. Uvula midline. Dry mucous membranes. No trismus noted. No drooling noted. No muffled voice noted. Neck: Normal inspection. Neck supple. FROM. No adenopathy. Thyroid Normal. No meningeal signs. No neck mass noted. CVS: Normal heart rate and rhythm. Heart sound normal. No murmurs noted. Pulses normal throughout. Respiratory: No respiratory distress. Painless inspiration. Breath sounds normal. No wheezes/rales/rhonchi noted. Chest nontender. No accessory muscle usage noted or decreased air movement noted. Abdomen: Soft, mild epigastric tenderness, no rebound tenderness, no guarding.. Bowel sounds normal in all 4 quadrants. No distention noted. No organomegaly noted. No visible injury noted. Back: No CVA tenderness. Full range of motion noted. Skin: Skin warm and dry. Normal skin color. Normal skin turgor. No rashes/lesions/lacerations noted. Extremities: No lower extremity edema. Extremities exhibit normal range of motion. Extremities nontender. Neuro: No motor deficit. No sensory deficit. Reflexes normal. Course Course Course Narrative: Assessment and plan. 74-year-old female from group home brought in after lost plenty of weight and decreased p.o. intake, patient appeared dehydrated and hypotensive. Patient has 1 time nonbloody watery diarrhea in the emergency department. 1. EKG ischemic change which unchanged from old EKG with troponin of 1000, the case discussed with Dr. Contreras from Cardiology who recommended to treat the underlying condition and continue with serial troponin. 2. Lactic acidosis thought to be secondary to dehydration there is no source of infection can be detected. 3. Hypotension that responded to IV hydration, continue with IV hydration, replete potassium, the case discussed with Dr. Reza. Was advised to give half-normal saline and replete electrolytes. 4. The case discussed with Dr. lewis to admit to ICU, who instructed patient can not be on the floor as long as keeping blood pressure above 90 and keep urine output. Will place Hernandez for in than out. Reevaluation(s) Reevaluation #1: Patient has been evaluated by ICU in the emergency department due to persistent hypotension and electrolyte disturbance patient will be admitted to ICU. Central line will be placed in the emergency department for possible pressor if indicated throughout the night. Time: 20:49 Medical Decision Making Lab Data Lab results reviewed: Yes I reviewed the patient's lab results. Result diagrams: 09/03/20 16:49 09/03/20 16:49 Labs: Lab Results 09/03/20 09/03/20 09/03/20 Range/Units 16:49 16:49 16:49 WBC 7.6 (4.8-10.8) X10*3/uL RBC 3.52 L D (4.20-5.50) X10*6/uL Hgb 9.3 L D (12.0-16.0) g/dl Hct 28.3 L D (37-47) % MCV 80.4 (80-98) fL MCH 26.4 L (27.0-33.0) pg MCHC 32.9 (31.0-35.0) g/dl RDW 17.6 H (11.0-16.0) % Plt Count 230 D (160-400) X10*3/uL MPV 10.3 (9.4-12.3) fL Immature Gran % (Auto) 0.8 H (0.0-0.4) % Neut % (Auto) 87.4 H (45-73) % Lymph % (Auto) 8.0 L (20-40) % [place] % (Auto) 3.8 (2-11) % Eos % (Auto) 0.0 (0-4) % Baso % (Auto) 0.0 (0-2) % Lymph # (Auto) 0.6 L (1.2-4.9) X10*3/uL [place] # (Auto) 0.3 (0.1-1.2) X10*3/uL Eos # (Auto) 0.0 (0.0-0.4) X10*3/uL Baso # (Auto) 0.0 (0.0-0.2) X10*3/uL Abs Immat Gran (auto) 0.06 H (0.00-0.03) X10*3/uL Absolute Neuts (auto) 6.7 (2.0-8.3) X10*3/uL Absolute Nucleated RBC 0.040 H (0.0-0.012) X10*3/uL Nucleated RBC % (auto) 0.5 H (0.0-0.2) /100WBC Smear Tech's Comments VERIFIED Sodium 152 H (135-145) mmol/L Potassium 2.6 L (3.3-5.1) mmol/L Chloride 110 H (96-108) mmol/L Carbon Dioxide 30 H (22-29) mmol/L Anion Gap 15 (12-20) BUN 47 H D (9-16) mg/dL Creatinine 1.07 (0.5-1.4) mg/dL Estim Creat Clear Calc 36.8 Estimated GFR 50 Random Glucose 159 H (60-115) mg/dL Lactic Acid 2.3 H* (0.5-2.0) mmol/L Calcium 8.2 L D (8.4-10.2) mg/dL Magnesium 2.4 (1.6-2.6) mg/dL Total Bilirubin 0.7 (0.0-1.0) mg/dL Direct Bilirubin 0.4 (0.0-0.5) mg/dL AST 11 (5-31) U/L ALT < 6 (0-31) U/L Alkaline Phosphatase 87 D (39-117) U/L Troponin I High Sens (<3.5-17.0) ng/L B-Natriuretic Peptide (<100) pg/mL Total Protein 5.4 L (6.5-8.0) g/dL Albumin 3.1 L (3.5-5.0) g/dL Lipase 20 (8-78) U/L Urine Color Urine Appearance Urine pH (5.0-8.0) Ur Specific [place] (1.005-1.025) Urine Protein (NEG-TRACE) MG/DL Urine Glucose (UA) (NEG) MG/DL Urine Ketones (NEG) MG/DL Urine Blood (NEG) Urine Nitrite (NEG) Ur Leukocyte Esterase (NEG) COVID-19 (RICK) (Negative) COVID-19 Clin Com 09/03/20 09/03/20 09/03/20 Range/Units 16:49 16:49 17:02 WBC (4.8-10.8) X10*3/uL RBC (4.20-5.50) X10*6/uL Hgb (12.0-16.0) g/dl Hct (37-47) % MCV (80-98) fL MCH (27.0-33.0) pg MCHC (31.0-35.0) g/dl RDW (11.0-16.0) % Plt Count (160-400) X10*3/uL MPV (9.4-12.3) fL Immature Gran % (Auto) (0.0-0.4) % Neut % (Auto) (45-73) % Lymph % (Auto) (20-40) % [place] % (Auto) (2-11) % Eos % (Auto) (0-4) % Baso % (Auto) (0-2) % Lymph # (Auto) (1.2-4.9) X10*3/uL [place] # (Auto) (0.1-1.2) X10*3/uL Eos # (Auto) (0.0-0.4) X10*3/uL Baso # (Auto) (0.0-0.2) X10*3/uL Abs Immat Gran (auto) (0.00-0.03) X10*3/uL Absolute Neuts (auto) (2.0-8.3) X10*3/uL Absolute Nucleated RBC (0.0-0.012) X10*3/uL Nucleated RBC % (auto) (0.0-0.2) /100WBC Smear Tech's Comments Sodium (135-145) mmol/L Potassium (3.3-5.1) mmol/L Chloride (96-108) mmol/L Carbon Dioxide (22-29) mmol/L Anion Gap (12-20) BUN (9-16) mg/dL Creatinine (0.5-1.4) mg/dL Estim Creat Clear Calc Estimated GFR Random Glucose (60-115) mg/dL Lactic Acid (0.5-2.0) mmol/L Calcium (8.4-10.2) mg/dL Magnesium (1.6-2.6) mg/dL Total Bilirubin (0.0-1.0) mg/dL Direct Bilirubin (0.0-0.5) mg/dL AST (5-31) U/L ALT (0-31) U/L Alkaline Phosphatase (39-117) U/L Troponin I High Sens 1032.9 H D (<3.5-17.0) ng/L B-Natriuretic Peptide 584 H (<100) pg/mL Total Protein (6.5-8.0) g/dL Albumin (3.5-5.0) g/dL Lipase (8-78) U/L Urine Color YELLOW Urine Appearance CLEAR Urine pH 6.0 (5.0-8.0) Ur Specific [place] 1.025 (1.005-1.025) Urine Protein TRACE (NEG-TRACE) MG/DL Urine Glucose (UA) NEG (NEG) MG/DL Urine Ketones 15 (NEG) MG/DL Urine Blood NEG (NEG) Urine Nitrite NEG (NEG) Ur Leukocyte Esterase NEG (NEG) COVID-19 (RICK) Negative (Negative) COVID-19 Clin Com See Note Imaging Data Chest x-ray: Radiologist's impression: No acute intrathoracic disease. ECG Data Interpretation: Normal sinus rhythm at 74 beats per minutes, left axis deviation, diffuse T-wave inversion and ST depression in V2, V3, V4, V5, and V6. With prolonged QTC Critical Care Time Critical Care Time Critical Care Time: Yes Total Critical Care Time: 60 Attestation: I spent 60 minutes at the bedside providing critical care for this patient between consulting rice farmer, environmental emergencies assistant, senior office assistant, and reviewing labs, assessing vital signs, monitoring hypotension, repleting electrolytes, and admitting the patient. Discharge Plan Discharge Clinical Impression: Acute dehydration, Acute hypernatremia, Acute hypokalemia, Acute hypotension, Elevated troponin Patient Disposition: Admitted As Inpatient
[2020-09-03] MEDS: 0.9 % Sodium Chloride 1,000 ML 999 ML IVCONT ×2 (16:54→18:38)
[2020-09-03 17:00] LABS: Hematocrit 28.3 % (37-47); Hemoglobin 9.3 g/dl (12.0-16.0); Imm Gran Abs Auto 0.06 X10*3/uL (0.00-0.03); Imm Gran Pct Auto 0.8 % (0.0-0.4); Lymphocytes Absolute Auto 0.6 X10*3/uL (1.2-4.9); MANUAL DIFF FLAG SCAN; Mean Corpuscular HGB Conc 32.9 g/dl (31.0-35.0); Mean Corpuscular Hemoglobin 26.4 pg (27.0-33.0); Mean Corpuscular Volume 80.4 fL (80-98); Mean Platelet Volume 10.3 fL (9.4-12.3); Monocytes Absolute Auto 0.3 X10*3/uL (0.1-1.2); Monocytes Percent Auto 3.8 % (2-11); NRBC Pct Auto 0.5 /100WBC (0.0-0.2); Neutrophils Absolute Auto 6.7 X10*3/uL (2.0-8.3); Neutrophils Percent Auto 87.4 % (45-73); Platelet Count 230 X10*3/uL (160-400); Red Blood Count 3.52 X10*6/uL (4.20-5.50); Red Cell Distribution Width 17.6 % (11.0-16.0); SCAN SMEAR FLAG 1; White Blood Count 7.6 X10*3/uL (4.8-10.8)
[2020-09-03 17:07] LABS: Glucose Urine UA NEG (NEG); Leukocyte Esterase Urine NEG (NEG); Nitrite Urine NEG (NEG); Specific Gravity - Urine 1.025 (1.005-1.025); Urine Blood NEG (NEG); Urine Ketones 15 MG/DL (NEG); Urine Protein TRACE MG/DL (NEG-TRACE)
[2020-09-03 17:16] LABS: COVID-19 Test Negative (Negative)
[2020-09-03 17:29] LABS: Appearance Urine CLEAR; Color Urine YELLOW
[2020-09-03 17:31] LABS: Alanine Aminotransferase < 6 U/L (0-31); Albumin Level 3.1 g/dL (3.5-5.0); Alkaline Phosphatase 87 U/L (39-117); Anion Gap 15 (12-20); Aspartate Amino Transferase 11 U/L (5-31); Bilirubin Direct 0.4 mg/dL (0.0-0.5); Bilirubin Total 0.7 mg/dL (0.0-1.0); Blood Urea Nitrogen 47 mg/dL (9-16); Calcium 8.2 mg/dL (8.4-10.2); Carbon Dioxide 30 mmol/L (22-29); Chloride 110 mmol/L (96-108); Creatinine Clr Calc Pharmacy 36.8; Estimated Glomerular Filt Rate 50; Glucose Random 159 mg/dL (60-115); Lipase 20 U/L (8-78); SLIDE REVIEW VERIFIED; Total Protein 5.4 g/dL (6.5-8.0)
[2020-09-03 17:33] LABS: Lactic Acid 2.3 mmol/L (0.5-2.0)
[2020-09-03 17:41] LABS: B Type Natriuretic Peptide 584 pg/mL (<100); Potassium 2.6 mmol/L (3.3-5.1); Sodium 152 mmol/L (135-145); Troponin-I High Sensitivity 1032.9 ng/L (<3.5-17.0)
[2020-09-03 18:50] LABS: Magnesium 2.4 mg/dL (1.6-2.6)
[2020-09-03 18:56] LABS: Reflex Lactate? Lactic Acid Added
--- NOTE | 2020-09-03 19:30 | PC.NURSE ---
PT RESTING IN STRETCHER, PT AWAKE AND CONFUSED THRU INTERPRETOR. SALAZAR INSERTED W/O DIFFICULTY. 20MEQ k+ WITH DEXTROSE INFUSING W/O DIFFICULTY. HOSPITALIST IN ROOM FOR EVAL. WILL CONTINUE TO MONITOR PT.
[2020-09-03] MEDS: KCl 20 mEq in 5 % Dextrose 20 MEQ/1,000 ML IV.SOLN 125 MEQ IVCONT (20:31)
[2020-09-03] MEDS: Albumin Human 25 % 100 ML IV (21:57)
--- NOTE | 2020-09-03 22:04 | PM.CCHP ---
History of Present Illness Date of Service: 09/03/20 Chief Complaint: Hypotension Patient is a 74-year-old female with a past medical history significant for HTN, HLD, Parkinson disease, paroxysmal a-fib not on blood thinners, s/p pacemaker, dysphagia, pulmonary nodules and latent TB who also who had new onset seizures and was started on Keppra approximately 3 weeks ago was brought in by ambulance from her intermediate for generalized weakness and failure to thrive, weight loss and reduced p.o. intake. Her family has been in discussions with the intermediate to please the feeding tube. Patient was a poor historian despite an interpretor being present, unable to answer questions. History was provided by her intermediate. While in the emergency department, labs were notable for hypernatremia 152, hypokalemia at 2.6, lactic acid 2.3, BUN 47 and Cr 1.07. Vital signs were stable sans for the BP which was in the 80-90's systolic with a MAP 50-60's. Troponin was elevated at 1032 and EKG had diffuse T-wave inversions in V2-V6 but according to Dr. Contreras, this is all old. His recommendation was to follow serial troponin. In the ER, the patient was given 2 L normal saline with no response in the blood pressure. Dr Adames was contacted, advised to give 1L of 20mgK in D5, recheck lytes in an hour. Upon my exam, patient was still borderline hypotensive despite fluid resuscitation, urine output was negligible. I then placed a central line so we could give the patient pressors and more potassium. Advised ED to give albumin as well. Will bring the patient to the ICU for monitoring and pressors. 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 Pacemaker Parkinson disease Paroxysmal A-fib Pulmonary nodules/lesions, multiple Restless leg syndrome Surgical History Surgical History History of bladder surgery Social History Social History Alcohol intake: never Smoking Status: Never smoker Use of substances other than those prescribed or required for medical reasons: No Advance Directives: No Advance Directives Information Provided: Yes Meds Allergies Allergy/AdvReac Type Severity Reaction Status Date / Time Sulfa (Sulfonamide Allergy Unknown Unknown Verified 05/26/20 15:19 Antibiotics) tuberculin, purified protein Allergy Unknown Verified 05/26/20 15:19 deriva [From Tubersol] Active Medications: Current Medications Generic Name Dose Route Start Last Admin Trade Name Freq PRN Reason Stop Dose Admin Heparin Sodium (Porcine) 5,000 unit 09/03/20 22:00 Heparin Sodium,Porcine 5,000 Unit/Ml Vial SUBCUT Q8H TAL Potassium Chloride/Dextrose 20 meq in 1,000 mls @ 125 mls/hr 09/03/20 19:15 09/03/20 20:31 IVCONT 125 mls/hr .Q8H TAL Administration Potassium Chloride 40 meq in 100 mls @ 100 mls/hr 09/03/20 21:54 IV 09/03/20 22:53 ONCE ONE Norepinephrine Bitartrate 8 mg in 250 mls @ 0 mls/hr 09/03/20 22:00 Levophed IVCONT .Q0M TAL Protocol Per Protocol Pharmacy Consult 1 each 09/03/20 18:02 Consult Rx Perform Med Rec MISCELLANE ONCE PRN Consult order Home Medications Medication Instructions Recorded Confirmed Last Taken Type aspirin 81 mg PO DAILY 09/03/20 09/03/20 Unknown History atorvastatin 40 mg PO DAILY 09/03/20 09/03/20 Unknown History carbidopa-levodopa 1 tab PO 5XD 09/03/20 09/03/20 Unknown History escitalopram oxalate 10 mg PO DAILY 09/03/20 09/03/20 Unknown History levetiracetam 125 mg PO BID 09/03/20 09/03/20 Unknown History metoprolol tartrate 25 mg PO BID 09/03/20 09/03/20 Unknown History mirtazapine [Remeron SolTab] 15 mg PO BEDTIME 09/03/20 09/03/20 Unknown History omeprazole 20 mg PO BID 09/03/20 09/03/20 Unknown History polyvinyl alcohol [Artificial 1 drp OPHTHALMIC (EYE) QID 09/03/20 09/03/20 Unknown History Tears Plus] promethazine 12.5 mg PO DAILY PRN 09/03/20 09/03/20 Unknown History promethazine 25 mg PO 0700,1100,1600 09/03/20 09/03/20 Unknown History sucralfate 10 ml PO Q6H 09/03/20 09/03/20 Unknown History tramadol 25 mg PO Q4H PRN 09/03/20 09/03/20 Unknown History Physical Exam Vital Signs: Vital Signs: Last Vital Signs Temp 98.5 F 09/03/20 21:53 Pulse 63 09/03/20 21:53 Resp 18 09/03/20 21:53 BP 85/45 L 09/03/20 21:53 Pulse Ox 94 09/03/20 21:53 Body Mass Index 24.3 Const: General: cooperative, comfortable, no acute distress and confusion Orientation/consciousness: No patient oriented x3 and confusion Limitations: altered mental status (baseline) HENMT: Head: Yes normal to inspection, Yes normocephalic and Yes atraumatic General nose exam: Normal external nose present Face and sinus: Yes normal facial exam Mouth: lip abnormal (very dry) and mucous membranes dry Eyes: General: appearance normal, both eyes and all related structures Pupils: Equal, round and reactive pupils present EOM: EOMs intact bilaterally Neck: Neck: Yes normal visual inspection, Yes full ROM, Yes no meningeal signs, Yes trachea midline and Yes supple Chest: Chest palpation & inspection: normal inspection of the chest Resp: Effort & Inspection: normal respiratory effort and able to speak in complete sentences Cardio: Rate: regular rate Rhythm: regular rhythm Skin: General skin exam: no rashes or lesions noted and dry skin Neuro: General: No patient oriented x3, no meningeal signs and confusion Cranial nerves: Yes Equal, round and reactive pupils present Extrem: General: Yes normal to inspection and Yes no pedal edema Psych: Speech and movement: Slowed movement present (Neuro); No Clear speech present Affect: Blunted affect present Attitude: cooperative Thought process: abnormal Insight: Poor insight present (Psych) (2/2 parkinsons) Judgement: Poor judgement present (Psych) (2/2 parkinsons) Results Labs CBC and Chem 7: 09/03/20 16:49 09/03/20 21:49 Labs: Laboratory Results - last 24 hr 09/03/20 09/03/20 09/03/20 16:49 16:49 16:49 MCV 80.4 MCH 26.4 L MCHC 32.9 RDW 17.6 H Plt Count 230 D MPV 10.3 Immature Gran % (Auto) 0.8 H Neut % (Auto) 87.4 H Lymph % (Auto) 8.0 L [place] % (Auto) 3.8 Eos % (Auto) 0.0 Baso % (Auto) 0.0 Lymph # (Auto) 0.6 L [place] # (Auto) 0.3 Eos # (Auto) 0.0 Baso # (Auto) 0.0 Abs Immat Gran (auto) 0.06 H Absolute Neuts (auto) 6.7 Absolute Nucleated RBC 0.040 H Nucleated RBC % (auto) 0.5 H Smear Tech's Comments VERIFIED Anion Gap 15 Estim Creat Clear Calc 36.8 Estimated GFR 50 Random Glucose 159 H Lactic Acid 2.3 H* Calcium 8.2 L D Magnesium 2.4 Total Bilirubin 0.7 Direct Bilirubin 0.4 AST 11 ALT < 6 Alkaline Phosphatase 87 D Troponin I High Sens B-Natriuretic Peptide Total Protein 5.4 L Albumin 3.1 L Lipase 20 Urine Color Urine Appearance Urine pH Ur Specific [place] Urine Protein Urine Glucose (UA) Urine Ketones Urine Blood Urine Nitrite Ur Leukocyte Esterase COVID-19 (RICK) COVID-[place] Com 09/03/20 09/03/20 09/03/20 16:49 16:49 17:02 MCV MCH MCHC RDW Plt Count MPV Immature Gran % (Auto) Neut % (Auto) Lymph % (Auto) [place] % (Auto) Eos % (Auto) Baso % (Auto) Lymph # (Auto) [place] # (Auto) Eos # (Auto) Baso # (Auto) Abs Immat Gran (auto) Absolute Neuts (auto) Absolute Nucleated RBC Nucleated RBC % (auto) Smear Tech's Comments Anion Gap Estim Creat Clear Calc Estimated GFR Random Glucose Lactic Acid Calcium Magnesium Total Bilirubin Direct Bilirubin AST ALT Alkaline Phosphatase Troponin I High Sens 1032.9 H D B-Natriuretic Peptide 584 H Total Protein Albumin Lipase Urine Color YELLOW Urine Appearance CLEAR Urine pH 6.0 Ur Specific [place] 1.025 Urine Protein TRACE Urine Glucose (UA) NEG Urine Ketones 15 Urine Blood NEG Urine Nitrite NEG Ur Leukocyte Esterase NEG COVID-19 (RICK) Negative COVID-19 Clin Com See Note Imaging Radiologist's Impressions: Impressions Chest X-Ray 09/03/20 16:23 IMPRESSION: No acute intrathoracic disease. Chest X-Ray 09/03/20 21:48 IMPRESSION: No complications status post right IJ line placement with tip in excellent position. Assessment and Plan (1) Acute dehydration: Status: Acute Fluid resuscitation, monitoring CVP and lytes, lactic acidoses likely 2/2 to dehydration (2) Acute hypernatremia: Status: Acute D5, monitor labs (3) Acute hypokalemia: Status: Acute Replacing potassium gently, monitoring labs and rhythm (4) Acute hypotension: Status: Acute Placed central line, monitor blood pressures, start small dose of Levophed & titrate (5) Elevated troponin: Status: Acute serial trop as recommended by Dr Contreras. EKG changes are old. 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 patient does not have history of any active TB symptoms or findings . , she is not infective to others. Status: Chronic (7) Pulmonary nodules/lesions, multiple: Problem details: the pulmonary nodules described on the CT scan are very small, 2-3 mm in size, these are considered nonspecific, probably due to old inflammatory process, Benign no further workup is needed. a very small effusion in the left base along with basilar atelectasis may be due to an old aspiration. it does not indicate any acute infectious process. this patient should be on Aspiration precautions. Status: Chronic
[2020-09-03 22:20] LABS: ~Lactic Acid-LAB USE ONLY 1.8 mmol/L (0.5-2.0)
--- NOTE | 2020-09-03 22:26 | MHC.CM.PN ---
Addendum entered by Krystal Burns 09/03/20 22:45: Attempted to call [facility]. Unable to speak with staff at this time. Original Note: CM note via EMR. Pt confused. From [facility]. Failure to thrive. Family considering GT placement. To ED for generalized weakness. Admitted with acute dehydration, hyper natremia, hypokalemia, hypotension. Pt Jehovah Witness. Attempted to call daughter, Komal Leone ([phone]), unable to leave message, mailbox is full. No HCP on file. Pt from [facility] ([phone]), unable to verify HCP at this time. PCP Garry Tijerina. Expect pt to return to [facility] via BLS. CM to follow for d/c needs. Return referral placed.
[2020-09-03 22:27] LABS: Anion Gap 12 (12-20); Blood Urea Nitrogen 44 mg/dL (9-16); Calcium 7.4 mg/dL (8.4-10.2); Carbon Dioxide 27 mmol/L (22-29); Chloride 115 mmol/L (96-108); Creatinine Clr Calc Pharmacy 45.8; Estimated Glomerular Filt Rate > 60; Glucose Random 159 mg/dL (60-115); Magnesium 2.2 mg/dL (1.6-2.6); Potassium 2.6 mmol/L (3.3-5.1); Sodium 151 mmol/L (135-145)
--- NOTE | 2020-09-03 22:46 | W.PM.CCHP ---
Procedures Central Line Placement Right IJ: Consent for Procedure: Emergent-no informed consent obtained Time out performed: Yes Sterile Technique Used: Yes Patient placed on monitor/pulse ox: Yes MD prep: mask, gown and gloves Central line prep: Chlorhexidine scrub Local anesthesia used: lidocaine 2% Amount of anesthesia used (ml): 3 Ultrasound used for placement: Yes Central line lumen inserted: triple Post procedure: sutured in place, good blood return, all ports aspirated, flushed, capped and sterile dressing applied Post procedure x-ray: tip of catheter in good position and no pneumothorax seen Patient tolerated procedure: well and no complications Complications: none
[2020-09-03] MEDS: Potassium Chloride/H20 40 MEQ/100 ML PIGGYBACK 100 MEQ IV (22:59)
[2020-09-03] MEDS: Heparin Sodium,Porcine 5,000 UNIT/ML VIAL 5000 UNIT SUBCUT (22:59)
--- NOTE | 2020-09-03 23:01 | PC.NURSE ---
PT MEDICATED PER EMAR ON PUMP INSTRUCTED OVER 2 HRS INTO CENTRAL LINE, INFUSING W/O DIFFICULTY. PT REMAIN AWAKE, RESPIRATIONS EASY, N/L. SKIN W/D. SALAZAR DRAINING APPROX 1OOML OF YELLOW URINE IN SALAZAR BAG. PT DENIES ANY COMPLAINTS. AWAITING FOR TRANSFER TO ICU. WILL CONTINUE TO MONITOR PT. VS OBTAINED. B/P 76/46.
--- NOTE | 2020-09-03 23:15 | PC.NURSE ---
ICU UNABLE TO TAKE REPORT AT THIS TIME. WILL RETURN CALL.
[2020-09-03 23:17] LABS: Lactic Acid 1.8 mmol/L (0.5-2.0)
[2020-09-03 23:33] LABS: Alanine Aminotransferase < 6 U/L (0-31); Alkaline Phosphatase 63 U/L (39-117); Anion Gap 10 (12-20); Aspartate Amino Transferase 7 U/L (5-31); Bilirubin Total 0.6 mg/dL (0.0-1.0); Blood Urea Nitrogen 44 mg/dL (9-16); Calcium 7.4 mg/dL (8.4-10.2); Carbon Dioxide 27 mmol/L (22-29); Chloride 114 mmol/L (96-108); Creatinine Clr Calc Pharmacy 43.8; Estimated Glomerular Filt Rate > 60; Glucose Random 181 mg/dL (60-115); Potassium 2.4 mmol/L (3.3-5.1); Sodium 149 mmol/L (135-145); Total Protein 4.7 g/dL (6.5-8.0)
[2020-09-03 23:34] LABS: Troponin-I High Sensitivity 685.5 ng/L (<3.5-17.0)
[2020-09-04] VITALS (24 sets, daily range): BP systolic 77–145; BP diastolic 34–72; PULSE 63–81; RESP 12–24; TEMP 35.7–36.6; O2SAT 94–99; BMI 21.8
--- NOTE | 2020-09-04 | ECG_ITS ---
Test Reason : FAILURE TO THRIVE Blood Pressure : / mmHG Vent. Rate : 074 BPM Atrial Rate : 074 BPM P-R Int : 100 ms QRS Dur : 086 ms QT Int : 426 ms P-R-T Axes : 018 -09 184 degrees QTc Int : 472 ms Sinus rhythm with short IL ST & T wave abnormality, consider inferior ischemia ST & T wave abnormality, consider anterolateral ischemia Prolonged QT Abnormal ECG When compared with ECG of 16-AUG-2020 17:09, Sinus rhythm has replaced Electronic atrial pacemaker Referred By: Craig Torres Electronically Signed By:ADAM LOVELACE MD
--- NOTE | 2020-09-04 | PC.NURSE ---
PT TO FLOOR ON MONITOR WITH PA. PT LEFT ED IN NAD. PT MEDICATED PER EMAR. REPORT GIVEN TO ARLEY BROWN.
[2020-09-04 01:20] LABS: INTERNATIONAL NORM RATIO 1.5 (0.9-1.1); Prothrombin Time 18.1 SEC (10.8-13.0)
[2020-09-04 01:23] LABS: Partial Thromboplastin Time 31.1 SEC (24.1-38.0)
[2020-09-04] MEDS: Bacitracin Oint 14 GM TUBE 1 APPL TOPICAL ×4 (01:23→20:39)
[2020-09-04] MEDS: Albumin Human 25 % 50 ML 100 ML IV (01:24)
[2020-09-04] MEDS: KCl 20 mEq in 5 % Dex/Lact Rin 20 MEQ/1,000 ML IV.SOLN 125 MEQ IVCONT (01:29)
[2020-09-04 01:38] LABS: Alanine Aminotransferase < 6 U/L (0-31); Albumin Level 3.3 g/dL (3.5-5.0); Alkaline Phosphatase 67 U/L (39-117); Anion Gap 12 (12-20); Aspartate Amino Transferase 8 U/L (5-31); Bilirubin Total 0.9 mg/dL (0.0-1.0); Blood Urea Nitrogen 45 mg/dL (9-16); Calcium 7.6 mg/dL (8.4-10.2); Carbon Dioxide 26 mmol/L (22-29); Chloride 113 mmol/L (96-108); Creatinine Clr Calc Pharmacy 43.8; Estimated Glomerular Filt Rate > 60; Glucose Random 190 mg/dL (60-115); Potassium 3.2 mmol/L (3.3-5.1); Sodium 148 mmol/L (135-145); Total Protein 5.2 g/dL (6.5-8.0)
--- NOTE | 2020-09-04 02:33 | PC.NURSE ---
Addendum entered by Kumar Raygoza RN 09/04/20 06:43: am hg called by lab as 6.8...icu pa aware...cbc redrawn..to hold am heparin until repeat cbc results obtained Original Note: ADMIT TO 255-1...IV FLUIDS & ALBUMEN PER EMAR/CPOE...LEVOPHED TITRATED TO 0.1 MCG/KG/MIN WITH IMPROVED BP VIA RIGHT IJ TLC...SALAZAR WITH SCANT OUTPUT..SMALL STAGE 2 ULCERS TO RIGHT BUTTOCK/COCCYX..WATER VESSEL CAPTAIN PRESENT...CONVERSES...STATED 'i won't be riding a bicycle with everything they found ... i need to get my degree or i have to go to work ... i have good recipe for plantains ...c/o abdominal pain on palpation--incontinant soft brown stool...icu pa present and examined patient..abdominal ultrasound 09/01/20 reviewed....denied chest pain....monitor atrial fib controlled hr
[2020-09-04 05:26] LABS: MANUAL DIFF FLAG NO
[2020-09-04 05:28] LABS: Imm Gran Abs Auto 0.06 X10*3/uL (0.00-0.03); Imm Gran Pct Auto 0.8 % (0.0-0.4); Lymphocytes Absolute Auto 0.9 X10*3/uL (1.2-4.9); Lymphocytes Percent Auto 11.8 % (20-40); Mean Corpuscular Hemoglobin 26.5 pg (27.0-33.0); Mean Corpuscular Volume 80.2 fL (80-98); Mean Platelet Volume 10.9 fL (9.4-12.3); Monocytes Absolute Auto 0.2 X10*3/uL (0.1-1.2); Monocytes Percent Auto 2.5 % (2-11); NRBC Pct Auto 0.4 /100WBC (0.0-0.2); Neutrophils Absolute Auto 6.7 X10*3/uL (2.0-8.3); Neutrophils Percent Auto 84.9 % (45-73); Platelet Count 204 X10*3/uL (160-400); Red Blood Count 2.57 X10*6/uL (4.20-5.50); Red Cell Distribution Width 17.6 % (11.0-16.0); White Blood Count 7.9 X10*3/uL (4.8-10.8)
[2020-09-04 05:35] LABS: INTERNATIONAL NORM RATIO 1.5 (0.9-1.1); Prothrombin Time 18.4 SEC (10.8-13.0)
[2020-09-04 05:38] LABS: Partial Thromboplastin Time 30.9 SEC (24.1-38.0)
[2020-09-04 05:57] LABS: Albumin Level 3.2 g/dL (3.5-5.0); Anion Gap 12 (12-20); Blood Urea Nitrogen 44 mg/dL (9-16); Calcium 7.8 mg/dL (8.4-10.2); Carbon Dioxide 25 mmol/L (22-29); Chloride 114 mmol/L (96-108); Creatinine Clr Calc Pharmacy 44.3; Estimated Glomerular Filt Rate > 60; Glucose Random 192 mg/dL (60-115); Magnesium 2.1 mg/dL (1.6-2.6); Phosphorus 1.1 mg/dL (2.7-4.5); Sodium 148 mmol/L (135-145)
[2020-09-04 06:02] LABS: B Type Natriuretic Peptide 728 pg/mL (<100)
[2020-09-04 06:34] LABS: MANUAL DIFF FLAG NO
[2020-09-04 06:48] LABS: Basophils Percent Auto 0.1 % (0-2); Imm Gran Abs Auto 0.07 X10*3/uL (0.00-0.03); Imm Gran Pct Auto 0.8 % (0.0-0.4); Lymphocytes Absolute Auto 0.9 X10*3/uL (1.2-4.9); Lymphocytes Percent Auto 10.8 % (20-40); Mean Corpuscular HGB Conc 33.2 g/dl (31.0-35.0); Mean Corpuscular Hemoglobin 26.7 pg (27.0-33.0); Mean Corpuscular Volume 80.6 fL (80-98); Mean Platelet Volume 11.1 fL (9.4-12.3); Monocytes Absolute Auto 0.3 X10*3/uL (0.1-1.2); Monocytes Percent Auto 3.1 % (2-11); NRBC Pct Auto 0.4 /100WBC (0.0-0.2); Neutrophils Absolute Auto 7.1 X10*3/uL (2.0-8.3); Neutrophils Percent Auto 85.2 % (45-73); Platelet Count 207 X10*3/uL (160-400); Red Blood Count 2.58 X10*6/uL (4.20-5.50); Red Cell Distribution Width 17.6 % (11.0-16.0); White Blood Count 8.4 X10*3/uL (4.8-10.8)
[2020-09-04 07:25] LABS: Hemoglobin 6.8 g/dl (12.0-16.0)
[2020-09-04 07:38] LABS: Hematocrit 20.8 % (37-47); Hemoglobin 6.9 g/dl (12.0-16.0)
[2020-09-04 08:25] LABS: Hematocrit 20.6 % (37-47)
[2020-09-04] MEDS: LORazepam 2 MG/ML VIAL 0.25 MG IVPUSH ×3 (08:57→20:45)
[2020-09-04] MEDS: KCl 20 mEq in 5 % Dextrose 20 MEQ/1,000 ML IV.SOLN 80 MEQ IVCONT (10:06)
[2020-09-04] MEDS: Pantoprazole Sodium 80 MG in 0.9 % Sodium Chloride 80 ML 10 MG IV ×2 (10:07→18:14)
[2020-09-04 15:03] LABS: Anion Gap 11 (12-20); Blood Urea Nitrogen 38 mg/dL (9-16); Calcium 7.7 mg/dL (8.4-10.2); Carbon Dioxide 26 mmol/L (22-29); Chloride 115 mmol/L (96-108); Creatinine Clr Calc Pharmacy 51.3; Estimated Glomerular Filt Rate > 60; Glucose Random 131 mg/dL (60-115); Phosphorus 2.1 mg/dL (2.7-4.5); Sodium 149 mmol/L (135-145)
--- NOTE | 2020-09-04 16:24 | P.PNCC_ITS ---
Subjective Subjective Date of Service: 09/04/20 Interval History: 74-year-old female from a nursing facility admitted for ?on ?failure to thrive not eating not drinking there was obvious the diarrhea with considerable melena and guaiac-positive with a 3 g drop in hemoglobin sodium of 149 the indicating the no clearly not just volume but free water deficit and significantly hypokalemic at the same time and with an apparent altered mental status but clearly a significant element of chronic dementia which may or may not be related to the underlying parkinsonism and she is on dopaminergic therapy but also takes p.r.n. promethazine for nausea and is on maintenance Klonopin in addition to an SSRI and anti seizure medicine Keppra at 125 mg b.i.d. which seems to be subtherapeutic metoprolol and isosorbide ice for presumptive diagnosis of ischemia Patient is obviously very rigid and whether not this is part and parcel of her parkinsonism or whether not this is a manifestation of the phenothiazine that she is on Also takes sotalol 80 mg b.i.d. because of paroxysmal atrial fibrillation but no anticoagulant P.r.n. medicine also includes tramadol which has serotonergic tendency coupled with the the other SSRI agent that she is on so some of the rigidity could even be related to serotonin syndrome A she is awake but definitely depressed cognitive function and unintelligible speech We were informed by family that she is a Mormonism and therefore the transfusion that I had ordered for the hemoglobin of 6.8 will not be given Physical Exam Vital Signs: Vital Signs: Last Vital Signs Temp 97.8 F 09/04/20 08:00 Pulse 71 09/04/20 15:00 Resp 22 H 09/04/20 15:00 BP 110/62 09/04/20 15:00 Pulse Ox 97 09/04/20 15:00 Body Mass Index 21.8 Const: Other: She is awake but lethargic extremely slow to respond and again this might be the Parkinson's and this might be a dystonic issue related to medicine Bedside echo revealed normal left and right ventricular dimensions with normal systolic function no segmental wall motion abnormality despite troponin e levation and no primary valve or pericardial disease Lungs were clear to exam and x-ray Abdomen she seem to guard in the right upper quadrant but otherwise soft no organomegaly Peripherally skin color was normal no wounds no acrocyanosis clearly bilateral rigidity but no abnormal reflexes EKG with diffuse nonspecific ST-T changes and just mild QT prolongation at 480 milliseconds Objective Data Labs CBC & Chem 7: 09/04/20 06:29 09/04/20 14:22 Labs: Laboratory Results - last 24 hr 09/03/20 09/03/20 09/03/20 16:49 16:49 16:49 WBC 7.6 RBC 3.52 L D Hgb 9.3 L D Hct 28.3 L D MCV 80.4 MCH 26.4 L MCHC 32.9 RDW 17.6 H Plt Count 230 D MPV 10.3 Immature Gran % (Auto) 0.8 H Neut % (Auto) 87.4 H Lymph % (Auto) 8.0 L [place] % (Auto) 3.8 Eos % (Auto) 0.0 Baso % (Auto) 0.0 Lymph # (Auto) 0.6 L [place] # (Auto) 0.3 Eos # (Auto) 0.0 Baso # (Auto) 0.0 Abs Immat Gran (auto) 0.06 H Absolute Neuts (auto) 6.7 Absolute Nucleated RBC 0.040 H Nucleated RBC % (auto) 0.5 H Smear Tech's Comments VERIFIED PT INR APTT Sodium 152 H Potassium 2.6 L Chloride 110 H Carbon Dioxide 30 H Anion Gap 15 BUN 47 H D Creatinine 1.07 Estim Creat Clear Calc 36.8 Estimated GFR 50 Random Glucose 159 H Lactic Acid 2.3 H* Lactic Acid Fup @ 2Hr Calcium 8.2 L D Phosphorus Magnesium 2.4 Total Bilirubin 0.7 Direct Bilirubin 0.4 AST 11 ALT < 6 Alkaline Phosphatase 87 D Troponin I High Sens B-Natriuretic Peptide Total Protein 5.4 L Albumin 3.1 L Lipase 20 Urine Color Urine Appearance Urine pH Ur Specific [place] Urine Protein Urine Glucose (UA) Urine Ketones Urine Blood Urine Nitrite Ur Leukocyte Esterase COVID-19 ([facility]ICK) COVID-19 Clin Com Blood Type Antibody Screen Crossmatch 09/03/20 09/03/20 09/03/20 16:49 16:49 17:02 WBC RBC Hgb Hct MCV MCH MCHC RDW Plt Count MPV Immature Gran % (Auto) Neut % (Auto) Lymph % (Auto) [place] % (Auto) Eos % (Auto) Baso % (Auto) Lymph # (Auto) [place] # (Auto) Eos # (Auto) Baso # (Auto) Abs Immat Gran (auto) Absolute Neuts (auto) Absolute Nucleated RBC Nucleated RBC % (auto) Smear Tech's Comments PT INR APTT Sodium Potassium Chloride Carbon Dioxide Anion Gap BUN Creatinine Estim Creat Clear Calc Estimated GFR Random Glucose Lactic Acid Lactic Acid Fup @ 2Hr Calcium Phosphorus Magnesium Total Bilirubin Direct Bilirubin AST ALT Alkaline Phosphatase Troponin I High Sens 1032.9 H D B-Natriuretic Peptide 584 H Total Protein Albumin Lipase Urine Color YELLOW Urine Appearance CLEAR Urine pH 6.0 Ur Specific [place] 1.025 Urine Protein TRACE Urine Glucose (UA) NEG Urine Ketones 15 Urine Blood NEG Urine Nitrite NEG Ur Leukocyte Esterase NEG COVID-19 ([facility]ICK) Negative COVID-19 [employer] Com See Note Blood Type Antibody Screen Crossmatch 09/03/20 09/03/20 09/03/20 21:49 21:49 22:52 WBC RBC Hgb Hct MCV MCH MCHC RDW Plt Count MPV Immature Gran % (Auto) Neut % (Auto) Lymph % (Auto) [place] % (Auto) Eos % (Auto) Baso % (Auto) Lymph # (Auto) [place] # (Auto) Eos # (Auto) Baso # (Auto) Abs Immat Gran (auto) Absolute Neuts (auto) Absolute Nucleated RBC Nucleated RBC % (auto) Smear Tech's Comments PT INR APTT Sodium 151 H 149 H Potassium 2.6 L 2.4 L* Chloride 115 H 114 H Carbon Dioxide 27 27 Anion Gap 12 10 L BUN 44 H 44 H Creatinine 0.86 0.90 Estim Creat Clear Calc 45.8 43.8 Estimated GFR > 60 > 60 Random Glucose 159 H 181 H Lactic Acid Lactic Acid Fup @ 2Hr 1.8 Calcium 7.4 L D 7.4 L Phosphorus Magnesium 2.2 Total Bilirubin 0.6 Direct Bilirubin AST 7 ALT < 6 Alkaline Phosphatase 63 D Troponin I High Sens B-Natriuretic Peptide Total Protein 4.7 L Albumin 3.0 L Lipase Urine Color Urine Appearance Urine pH Ur Specific [place] Urine Protein Urine Glucose (UA) Urine Ketones Urine Blood Urine Nitrite Ur Leukocyte Esterase COVID-19 (RICK) COVID-[employer] Com Blood Type Antibody Screen Crossmatch 09/03/20 09/03/20 09/04/20 22:52 22:52 00:59 WBC RBC Hgb Hct MCV MCH MCHC RDW Plt Count MPV Immature Gran % (Auto) Neut % (Auto) Lymph % (Auto) [place] % (Auto) Eos % (Auto) Baso % (Auto) Lymph # (Auto) [place] # (Auto) Eos # (Auto) Baso # (Auto) Abs Immat Gran (auto) Absolute Neuts (auto) Absolute Nucleated RBC Nucleated RBC % (auto) Smear Tech's Comments PT INR APTT Sodium 148 H Potassium 3.2 L D Chloride 113 H Carbon Dioxide 26 Anion Gap 12 BUN 45 H Creatinine 0.90 Estim Creat Clear Calc 43.8 Estimated GFR > 60 Random Glucose 190 H Lactic Acid 1.8 Lactic Acid Fup @ 2Hr Calcium 7.6 L Phosphorus Magnesium Total Bilirubin 0.9 Direct Bilirubin AST 8 ALT < 6 Alkaline Phosphatase 67 Troponin I High Sens 685.5 H B-Natriuretic Peptide Total Protein 5.2 L Albumin 3.3 L Lipase Urine Color Urine Appearance Urine pH Ur Specific [place] Urine Protein Urine Glucose (UA) Urine Ketones Urine Blood Urine Nitrite Ur Leukocyte Esterase COVID-19 (RICK) COVID-19 Clin Com Blood Type Antibody Screen Crossmatch 09/04/20 09/04/20 09/04/20 00:59 00:59 05:10 WBC 7.9 RBC 2.57 L D Hgb 6.8 L* D Hct 20.6 L* D MCV 80.2 MCH 26.5 L MCHC 33.0 RDW 17.6 H Plt Count 204 MPV 10.9 Immature Gran % (Auto) 0.8 H Neut % (Auto) 84.9 H Lymph % (Auto) 11.8 L [place] % (Auto) 2.5 Eos % (Auto) 0.0 Baso % (Auto) 0.0 Lymph # (Auto) 0.9 L [place] # (Auto) 0.2 Eos # (Auto) 0.0 Baso # (Auto) 0.0 Abs Immat Gran (auto) 0.06 H Absolute Neuts (auto) 6.7 Absolute Nucleated RBC 0.030 H Nucleated RBC % (auto) 0.4 H Smear Tech's Comments PT 18.1 H INR 1.5 H APTT 31.1 Sodium Potassium Chloride Carbon Dioxide Anion Gap BUN Creatinine Estim Creat Clear Calc Estimated GFR Random Glucose Lactic Acid Lactic Acid Fup @ 2Hr Calcium Phosphorus Magnesium Total Bilirubin Direct Bilirubin AST ALT Alkaline Phosphatase Troponin I High Sens 802.0 H B-Natriuretic Peptide Total Protein Albumin Lipase Urine Color Urine Appearance Urine pH Ur Specific [place] Urine Protein Urine Glucose (UA) Urine Ketones Urine Blood Urine Nitrite Ur Leukocyte Esterase COVID-19 (RICK) COVID-19 [facility] Blood Type Antibody Screen Crossmatch 09/04/20 09/04/20 09/04/20 05:10 05:10 05:10 WBC RBC Hgb Hct MCV MCH MCHC RDW Plt Count MPV Immature Gran % (Auto) Neut % (Auto) Lymph % (Auto) [place] % (Auto) Eos % (Auto) Baso % (Auto) Lymph # (Auto) [place] # (Auto) Eos # (Auto) Baso # (Auto) Abs Immat Gran (auto) Absolute Neuts (auto) Absolute Nucleated RBC Nucleated RBC % (auto) Smear Tech's Comments PT 18.4 H INR 1.5 H APTT 30.9 Sodium 148 H Potassium 3.0 L Chloride 114 H Carbon Dioxide 25 Anion Gap 12 BUN 44 H Creatinine 0.89 Estim Creat Clear Calc 44.3 Estimated GFR > 60 Random Glucose 192 H Lactic Acid Lactic Acid Fup @ 2Hr Calcium 7.8 L Phosphorus 1.1 L Magnesium 2.1 Total Bilirubin Direct Bilirubin AST ALT Alkaline Phosphatase Troponin I High Sens 572.0 H B-Natriuretic Peptide 728 H Total Protein Albumin 3.2 L Lipase Urine Color Urine Appearance Urine pH Ur Specific [place] Urine Protein Urine Glucose (UA) Urine Ketones Urine Blood Urine Nitrite Ur Leukocyte Esterase COVID-19 (RICK) COVID-19 [facility] Blood Type Antibody Screen Crossmatch 09/04/20 09/04/20 09/04/20 06:29 09:13 14:22 WBC 8.4 RBC 2.58 L Hgb 6.9 L* Hct 20.8 L* MCV 80.6 MCH 26.7 L MCHC 33.2 RDW 17.6 H Plt Count 207 MPV 11.1 Immature Gran % (Auto) 0.8 H Neut % (Auto) 85.2 H Lymph % (Auto) 10.8 L [place] % (Auto) 3.1 Eos % (Auto) 0.0 Baso % (Auto) 0.1 Lymph # (Auto) 0.9 L [place] # (Auto) 0.3 Eos # (Auto) 0.0 Baso # (Auto) 0.0 Abs Immat Gran (auto) 0.07 H Absolute Neuts (auto) 7.1 Absolute Nucleated RBC 0.030 H Nucleated RBC % (auto) 0.4 H Smear Tech's Comments PT INR APTT Sodium 149 H Potassium 3.0 L Chloride 115 H Carbon Dioxide 26 Anion Gap 11 L BUN 38 H Creatinine 0.70 Estim Creat Clear Calc 51.3 Estimated GFR > 60 Random Glucose 131 H Lactic Acid Lactic Acid Fup @ 2Hr Calcium 7.7 L Phosphorus 2.1 L Magnesium 2.0 Total Bilirubin Direct Bilirubin AST ALT Alkaline Phosphatase Troponin I High Sens B-Natriuretic Peptide Total Protein Albumin Lipase Urine Color Urine Appearance Urine pH Ur Specific [place] Urine Protein Urine Glucose (UA) Urine Ketones Urine Blood Urine Nitrite Ur Leukocyte Esterase COVID-19 (RICK) COVID-19 Clin Com Blood Type A Negative Antibody Screen NEGATIVE Crossmatch See Detail Progress Note: A&P Assessment and plan (1) Acute dehydration: Status: Acute (2) Acute hypernatremia: Status: Acute (3) Acute hypokalemia: Status: Acute (4) Acute hypotension: Status: Acute (5) Elevated troponin: Status: Acute (6) 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 patient does not have history of any active TB symptoms or findings . , she is not infective to others. Status: Chronic (7) Pulmonary nodules/lesions, multiple: Problem details: the pulmonary nodules described on the CT scan are very small, 2-3 mm in size, these are considered nonspecific, probably due to old inflammatory process, Benign no further workup is needed. a very small effusion in the left base along with basilar atelectasis may be due to an old aspiration. it does not indicate any acute infectious process. this patient should be on Aspiration precautions. Status: Chronic (8) Anemia: Status: Acute (9) GI bleed: Status: Acute (10) Parkinsonism: Status: Acute (11) Dementia: Status: Acute (12) Altered mental status: Status: Acute (13) Non-ST elevation (NSTEMI) myocardial infarction: Status: Acute Assessment and Plan: Desire to transfuse largely based on the implication of ischemia with with the pattern and troponin and elevation as well as BNP elevation but this was declined by family because of Mormonism status Clearly hypovolemic with a free water deficit and hypokalemic all in large part due to the diarrhea which was melanotic so we are going to start a Protonix drip but canceled the transfusion potassium replete and free water repeat replete and also replete the hypophosphatemia stop all medications and see whether not the dystonia improves and including clarity of mental status and then the reintroduce antiparkinson medicine but we will maintain the benzodiazepine to prevent withdrawal issues Time Spent With Patient Time: Total time spent is greater than 50% in coordination of care (as documented) at patient's floor/unit and/or counseling patient: Total time spent with greater than 50% in coordination of care (as documented) at patient's floor/unit and/or counseling patient:: 45
[2020-09-04] MEDS: KCl 20 mEq in 5 % Dextrose 20 MEQ/1,000 ML IV.SOLN 100 MEQ IVCONT (20:38)
[2020-09-05] VITALS (23 sets, daily range): BP systolic 85–125; BP diastolic 44–79; PULSE 74–126; RESP 18–30; TEMP 36.2–37.1; O2SAT 95–100; BMI 23.8
--- NOTE | 2020-09-05 | EEG_ITS ---
The waking background activity consists of a diffuse 5 to 6 hertz theta with superimposed 2 to 3 hertz delta seen over both hemispheres. Abundance of muscle artifacts are seen. Occasional blunted sharp and slow waves appear over both hemispheres without clear lateralization. Sleep is characterized by diffuse delta slowing. IMPRESSION: This is an abnormal EEG due to diffuse background slowing consistent with a diffuse encephalopathic process. No clearly epileptiform discharges seen. MD THOMAS Donohue/JANELL / [id number]
[2020-09-05] MEDS: Pantoprazole Sodium 80 MG in 0.9 % Sodium Chloride 80 ML 10 MG IV (02:36)
[2020-09-05 06:30] LABS: MANUAL DIFF FLAG NO
[2020-09-05 06:38] LABS: Eosinophils Absolute Auto 0.1 X10*3/uL (0.0-0.4); Imm Gran Abs Auto 0.04 X10*3/uL (0.00-0.03); Imm Gran Pct Auto 0.5 % (0.0-0.4); Lymphocytes Percent Auto 12.6 % (20-40); Mean Corpuscular HGB Conc 32.9 g/dl (31.0-35.0); Mean Corpuscular Hemoglobin 26.3 pg (27.0-33.0); Mean Corpuscular Volume 79.9 fL (80-98); Mean Platelet Volume 11.2 fL (9.4-12.3); Monocytes Absolute Auto 0.1 X10*3/uL (0.1-1.2); Monocytes Percent Auto 1.5 % (2-11); Neutrophils Absolute Auto 6.6 X10*3/uL (2.0-8.3); Neutrophils Percent Auto 84.4 % (45-73); Platelet Count 181 X10*3/uL (160-400); Red Blood Count 2.59 X10*6/uL (4.20-5.50); Red Cell Distribution Width 17.6 % (11.0-16.0); White Blood Count 7.8 X10*3/uL (4.8-10.8)
[2020-09-05] MEDS: KCl 20 mEq in 5 % Dextrose 20 MEQ/1,000 ML IV.SOLN 100 MEQ IVCONT (06:45)
[2020-09-05 06:52] LABS: INTERNATIONAL NORM RATIO 1.4 (0.9-1.1)
[2020-09-05 06:54] LABS: Partial Thromboplastin Time 31.8 SEC (24.1-38.0)
[2020-09-05 07:03] LABS: B Type Natriuretic Peptide 1093 pg/mL (<100)
[2020-09-05 07:36] LABS: Hemoglobin 6.8 g/dl (12.0-16.0)
[2020-09-05 07:37] LABS: Hematocrit 20.7 % (37-47)
[2020-09-05 07:51] LABS: Albumin Level 2.8 g/dL (3.5-5.0); Anion Gap 12 (12-20); Blood Urea Nitrogen 24 mg/dL (9-16); Calcium 7.2 mg/dL (8.4-10.2); Carbon Dioxide 23 mmol/L (22-29); Chloride 114 mmol/L (96-108); Creatinine Clr Calc Pharmacy 63.1; Estimated Glomerular Filt Rate > 60; Glucose Random 122 mg/dL (60-115); Potassium 3.5 mmol/L (3.3-5.1); Sodium 145 mmol/L (135-145)
[2020-09-05] MEDS: Lactated Ringers 1,000 ML 80 ML IVCONT ×2 (08:14→19:57)
[2020-09-05] MEDS: Bacitracin Oint 14 GM TUBE 1 APPL TOPICAL ×3 (08:16→20:35)
[2020-09-05] MEDS: dilTIAZem HCL 125 MG in 0.9 % Sodium Chloride 100 ML IVCONT (12:19)
[2020-09-05 12:35] LABS: Ammonia 35 umol/L (13-55)
[2020-09-05] MEDS: Pantoprazole Sodium 40 MG/10 ML VIAL IVPUSH (16:38)
--- NOTE | 2020-09-05 17:27 | P.PNCC_ITS ---
Subjective Subjective Date of Service: 09/05/20 Interval History: 74-year-old female with background of dementia who was been a failure to thrive for months according to the family with very poor appetite very poor oral intake and family expressed desire for PEG tube when she became acutely on chronically altered noted to be hypotensive with melanotic stool and a 3 g drop in hemoglobin and stool was guaiac positive so hemoglobin is 6.8 and stable and they refused transfusion based on her Jehov[employer] Witness status so she received 24 hours of Protonix drip and now IV Protonix and is stable Admitted to ICU because of necessity for Levophed which is weaned off and central venous pressure is running 3-5 patient remains poorly responsive and lethargic she is on a very tiny dose of Ativan because she is on maintenance Klonopin at home she is parkinsonian and might have a Parkinson's related dementia but all medicines were stopped including the phenothiazine for GI symptoms as well as tramadol and X Ay tele parameters because of questionable serotonin related issues Patient is rigid all 4 extremities so serotonin as an issue versus dystonia verses just Parkinson's being inadequately treated and we will need neurology consult probably in the morning to reinstate medications and see what withdrawing these other medicines does for her mental status and rigidity No other apparent metabolic issues even ammonia level is 35 the only issue is the anemia which we can not really fix immediately and were going to get a swallow evaluation because of possible bulb ar abnormalities Physical Exam Vital Signs: Vital Signs: Last Vital Signs Temp 97.7 F 09/05/20 15:00 Pulse 96 09/05/20 17:00 Resp 24 H 09/05/20 17:00 BP 116/55 L 09/05/20 17:00 Pulse Ox 97 09/05/20 17:00 Body Mass Index 23.8 Const: Other: Lethargic but arousable no intelligible speech all 4 extremities do but patient still has a paucity of movement and remains rigid CVP is 3-5 she is in sinus rhythm with a prophylactic Cardizem drip at 2.5 milligrams/hour because of atrial ectopy and there is a background of paroxysmal atrial fibrillation Chest is clear Abdomen benign no organomegaly Periphery there is no acrocyanosis peripheral pulses are palpable no wounds Objective Data Labs CBC & Chem 7: 09/05/20 05:14 09/05/20 05:14 Labs: Laboratory Results - last 24 hr 09/05/20 09/05/20 09/05/20 05:14 05:14 05:14 WBC 7.8 RBC 2.59 L Hgb 6.8 L* Hct 20.7 L* MCV 79.9 L MCH 26.3 L MCHC 32.9 RDW 17.6 H Plt Count 181 MPV 11.2 Immature Gran % (Auto) 0.5 H Neut % (Auto) 84.4 H Lymph % (Auto) 12.6 L [place] % (Auto) 1.5 L Eos % (Auto) 1.0 Baso % (Auto) 0.0 Lymph # (Auto) 1.0 L [place] # (Auto) 0.1 Eos # (Auto) 0.1 Baso # (Auto) 0.0 Abs Immat Gran (auto) 0.04 H Absolute Neuts (auto) 6.6 Absolute Nucleated RBC 0.000 Nucleated RBC % (auto) 0.0 PT 17.0 H INR 1.4 H APTT 31.8 Sodium 145 Potassium 3.5 Chloride 114 H Carbon Dioxide 23 Anion Gap 12 BUN 24 H Creatinine 0.62 Estim Creat Clear Calc 63.1 Estimated GFR > 60 Random Glucose 122 H Calcium 7.2 L D Ammonia B-Natriuretic Peptide Albumin 2.8 L 09/05/20 09/05/20 05:14 12:07 WBC RBC Hgb Hct MCV MCH MCHC RDW Plt Count MPV Immature Gran % (Auto) Neut % (Auto) Lymph % (Auto) [place] % (Auto) Eos % (Auto) Baso % (Auto) Lymph # (Auto) [place] # (Auto) Eos # (Auto) Baso # (Auto) Abs Immat Gran (auto) Absolute Neuts (auto) Absolute Nucleated RBC Nucleated RBC % (auto) PT INR APTT Sodium Potassium Chloride Carbon Dioxide Anion Gap BUN Creatinine Estim Creat Clear Calc Estimated GFR Random Glucose Calcium Ammonia 35 B-Natriuretic Peptide 1093 H Albumin Microbiology Microbiology Results: Microbiology 09/03/20 16:52 Blood - Arterial Blood Culture - Preliminary No growth after 24 hours. 09/03/20 16:49 Blood - Arterial Blood Culture - Preliminary No growth after 24 hours. 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 patient does not have history of any active TB symptoms or findings . , she is not infective to others. Status: Chronic (13) Pulmonary nodules/lesions, multiple: Problem details: the pulmonary nodules described on the CT scan are very small, 2-3 mm in size, these are considered nonspecific, probably due to old inflammatory process, Benign no further workup is needed. a very small effusion in the left base along with basilar atelectasis may be due to an old aspiration. it does not indicate any acute infectious process. this patient should be on Aspiration precautions. Status: Chronic Assessment and Plan: So in summary she is altered with chronic dementia but very lethargic diffuse ri gidity could represent underlying Parkinson's poorly treated versus dystonic issues from her medications neurology may help us Keppra was stopped because the dose was subtherapeutic and there is a level pending no witnessed seizures Paroxysmal atrial fibrillation but currently in sinus rhythm on Cardizem drip Sotalol. Because there was a modest degree of QT prolongation and her swallow needs to be evaluated She had a patterned increase in troponin consistent with non ST elevation HI but hemodynamics adequate and bedside echo showed preserved systolic function of the left ventricle Family still desires PEG tube we explained surgical consult to be obtained on Sunday and they may hesitate because of untreated anemia with hemoglobin of 6.8 Zoroastrianism Time Spent With Patient Time: Total time spent is greater than 50% in coordination of care (as documented) at patient's floor/unit and/or counseling patient: Total time spent with greater than 50% in coordination of care (as documented) at patient's floor/unit and/or counseling patient:: 40
--- NOTE | 2020-09-05 18:53 | PC.NURSE ---
Addendum entered by Liliya Sibley RN 09/05/20 19:38: FAMILY UPDATED ON TRANSFER TO MED SURG STATUS. GIVEN NEW UNIT PHONE NUMBER. Addendum entered by Liliya Sibley RN 09/05/20 19:27: CARDIZEM GTT OFF AT 1915. WILL CONTINUE TO MONITOR. Original Note: LEVOPHED GTT WAS TURNED OFF AT 1313. VSS. AFEBRILE. CARDIZEM GTT STARTED AT 1224 AT A RATE OF 2.5 MG/HR PER MD FOR RATE CONTROL. SALAZAR WNL. BM X 2. LIPS STILL CONTINUE TO BLEED, FREQUENT ORAL CARE GIVEN. BATHED, Q2HR REPO, BARRIER CREAM APPLIED, PILLOWS UTILIZED. FAMILY UPDATED X 2 BY THIS RN. PT DOES NOT ANSWER QUESTIONS, MOANS, DOES NOT FOLLOW COMMANDS, DOES NOT OPEN EYES TO COMMAND. GEEK SQUAD MANAGER UTILIZED AND PT WOULD NOT ANSWER THEM EITHER.
[2020-09-06 04:00] VITALS: BP 149/91; PULSE 99; RESP 18; TEMP 37.2; O2SAT 96
[2020-09-06] MEDS: Pantoprazole Sodium 40 MG/10 ML VIAL IVPUSH ×2 (05:46→15:30)
[2020-09-06 06:00] VITALS: BMI 23.3
[2020-09-06 07:56] LABS: Hematocrit 22.3 % (37-47); Hemoglobin 7.5 g/dl (12.0-16.0); Mean Corpuscular HGB Conc 33.6 g/dl (31.0-35.0); Mean Corpuscular Hemoglobin 26.5 pg (27.0-33.0); Mean Corpuscular Volume 78.8 fL (80-98); Mean Platelet Volume 11.8 fL (9.4-12.3); Platelet Count 176 X10*3/uL (160-400); Red Blood Count 2.83 X10*6/uL (4.20-5.50); Red Cell Distribution Width 17.7 % (11.0-16.0)
[2020-09-06 08:00] VITALS: BP 110/80; PULSE 105; RESP 18; TEMP 37.1; O2SAT 96
[2020-09-06] MEDS: Bacitracin Oint 14 GM TUBE 1 APPL TOPICAL ×3 (08:01→22:17)
[2020-09-06] MEDS: Lactated Ringers 1,000 ML 80 ML IVCONT (08:01)
[2020-09-06 08:18] LABS: Anion Gap 13 (12-20); Blood Urea Nitrogen 15 mg/dL (9-16); Carbon Dioxide 25 mmol/L (22-29); Chloride 112 mmol/L (96-108); Creatinine Clr Calc Pharmacy 67.8; Estimated Glomerular Filt Rate > 60; Glucose Random 87 mg/dL (60-115); Potassium 3.5 mmol/L (3.3-5.1); Sodium 146 mmol/L (135-145)
[2020-09-06 08:30] LABS: Calcium 7.5 mg/dL (8.4-10.2); Phosphorus 2.3 mg/dL (2.7-4.5)
[2020-09-06 08:51] LABS: Folate < 1.6 ng/mL (> or = 4.0); Vitamin B12 253 pg/mL (200-900)
[2020-09-06] MEDS: LORazepam 2 MG/ML VIAL 0.25 MG IVPUSH ×2 (08:54→22:17)
[2020-09-06 11:34] VITALS: BP 116/69; PULSE 91; RESP 16; TEMP 36.4; O2SAT 94
[2020-09-06 15:05] VITALS: BMI 23.3
--- NOTE | 2020-09-06 15:08 | MHC.CLN ---
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
[2020-09-06 15:28] VITALS: BP 132/75; PULSE 105; RESP 17; TEMP 36.6; O2SAT 96
--- NOTE | 2020-09-06 15:47 | HO.PM.IMPN ---
Subjective Subjective Date of Service: 09/06/20 Interval History: seen and examined this AM does answer to her name says no to hunger otherwise, ROS unable due to patients mentation / baseline status Physical Exam Vital Signs: Vital Signs: Last Vital Signs Temp 97.9 F 09/06/20 15:28 Pulse 105 H 09/06/20 15:28 Resp 17 09/06/20 15:28 BP 132/75 09/06/20 15:28 Pulse Ox 96 09/06/20 15:28 Body Mass Index 23.3 Const: Other: General - no acute distress, appears comfortable Cardiovascular - regular rate and rhythm, S1-S2 Lungs - normal respiratory effort, clear to auscultation bilaterally, no wheezing Abdomen - soft, nontender, no rebound or guarding Extremities - LUE swelling, nontender Neuro - awake and alert, no focal deficits Objective Data Current Medications Generic Name Dose Route Start Last Admin Trade Name Freq PRN Reason Stop Dose Admin Bacitracin 1 appl 09/04/20 00:10 09/06/20 15:30 Bacitracin Oint 14 Gm Tube TOPICAL 1 appl TID TAL Administration Protocol Lactated Ringer's 1,000 mls @ 80 mls/hr 09/05/20 08:15 09/06/20 08:01 Lr IVCONT 80 mls/hr .[id number] TAL Administration Lorazepam 0.25 mg 09/05/20 21:00 09/06/20 08:54 Lorazepam 2 Mg/Ml Vial IVPUSH 0.25 mg BID TAL Administration Pantoprazole Sodium 40 mg 09/05/20 16:30 09/06/20 15:30 Pantoprazole Sodium 40 Mg/10 Ml Vial IVPUSH 40 mg BID@0630,1630 [facility] Administration Pharmacy Consult 1 each 09/03/20 18:02 Consult Rx Perform Med Rec MISCELLANE ONCE PRN Consult order Labs CBC & Chem 7: 09/06/20 07:46 09/06/20 07:46 Microbiology Microbiology Results: Microbiology 09/03/20 16:52 Blood - Arterial Blood Culture - Preliminary No growth after 48 hours. 09/03/20 16:49 Blood - Arterial Blood Culture - Preliminary No growth after 48 hours. Assessment and Plan (1) Anemia: Status: Acute Assessment and Plan: This is a 74-year-old female with a past medical history of hypertension, hyperlipidemia, Parkinson's disease, paroxysmal AFib not on blood thinners for unknown reason, status post pacemaker, dysphagia, pulmonary nodule, latent TB who according to the history and physical had new onset seizures and was started on Keppra about 3 weeks ago. She was brought in from the custodial for generalized weakness and failure to thrive, weight loss and reduced oral intake. She was noted to be profoundly hypotensive in the emergency room despite aggressive fluid resuscitation. She was subsequently admitted to the intensive care unit which she was treated with further fluid resuscitation and vasopressors. Ultimately she was transferred out on the evening of 09/05/2020. 1. Acute Encephalopathy multifactorial baseline unclear 2. HyperNa / deyhydration / hypotension due to poor ora intake hypotension resolved mild hyperNa -- start D51/2 @ 80 cc/hr 3. NSTEMI type 2 HS trop-I downtrending 4. Severe Anemia Jehova's witness -- unable to transfuse 5. Parkinson's / seizures meds on hold from ICU (? cause of her ridigity) -- neurology evaluation 6. Dysphagia failed swallow evaluation called HCP's listed on her chart (see physical chart) -- Jono Sepulveda busy multiple times; Audrey Ramsey - reports that he had been HCP few years back but was not willing to make decisions at this time. Case mgmt to inquire more information from the SNF. Full Code DVT pptx, mechanical due to severe anemia
[2020-09-06] MEDS: Dextrose 5 % and 0.45 % NaCl 1,000 ML 80 ML IVCONT (17:15)
[2020-09-06 19:24] VITALS: BP 117/74; PULSE 105; RESP 16; TEMP 36.8; O2SAT 96
[2020-09-06 23:46] VITALS: BP 107/55; PULSE 100; RESP 18; TEMP 37.4; O2SAT 96
[2020-09-07 03:57] VITALS: BP 106/60; PULSE 94; RESP 18; TEMP 36.5; O2SAT 95
[2020-09-07 05:09] VITALS: BMI 24.2
[2020-09-07] MEDS: Dextrose 5 % and 0.45 % NaCl 1,000 ML 80 ML IVCONT (05:12)
[2020-09-07] MEDS: Pantoprazole Sodium 40 MG/10 ML VIAL IVPUSH ×2 (05:30→17:37)
[2020-09-07 06:43] LABS: PLT CLUMP 1
[2020-09-07 06:45] LABS: Mean Corpuscular HGB Conc 34.1 g/dl (31.0-35.0); Mean Corpuscular Hemoglobin 26.8 pg (27.0-33.0); Mean Corpuscular Volume 78.5 fL (80-98); Mean Platelet Volume 11.9 fL (9.4-12.3); Platelet Count 136 X10*3/uL (160-400); Red Blood Count 2.61 X10*6/uL (4.20-5.50); Red Cell Distribution Width 17.5 % (11.0-16.0); White Blood Count 4.1 X10*3/uL (4.8-10.8)
[2020-09-07] MEDS: Bacitracin Oint 14 GM TUBE 1 APPL TOPICAL ×3 (07:18→21:21)
[2020-09-07 07:24] LABS: PLT ABN DIST 1
[2020-09-07 07:25] LABS: Hematocrit 20.5 % (37-47)
[2020-09-07 07:41] VITALS: BP 140/94; PULSE 106; RESP 20; TEMP 36.6; O2SAT 97
[2020-09-07 07:55] LABS: Anion Gap 13 (12-20); Blood Urea Nitrogen 11 mg/dL (9-16); Carbon Dioxide 24 mmol/L (22-29); Chloride 113 mmol/L (96-108); Creatinine Clr Calc Pharmacy 75.7; Estimated Glomerular Filt Rate > 60; Glucose Random 109 mg/dL (60-115); Magnesium 1.6 mg/dL (1.6-2.6); Phosphorus 1.7 mg/dL (2.7-4.5); Potassium 3.1 mmol/L (3.3-5.1); Sodium 147 mmol/L (135-145)
[2020-09-07] MEDS: LORazepam 2 MG/ML VIAL 0.25 MG IVPUSH (10:01)
--- NOTE | 2020-09-07 11:03 | MHC.CM.PN ---
CM spoke with Daughter/Komal @ [phone], regarding dc planning.The goal is NOT for Patient to return to [facility]. 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 Komal has given no consideration to Hospice and also indicated that she WOULD consider a PEG. is aware.
[2020-09-07 12:00] VITALS: BP 112/63; PULSE 99; RESP 19; TEMP 36.4; O2SAT 95
--- NOTE | 2020-09-07 12:07 | MHC.SLORD ---
[employer] attempted PO trials with pt this morning.Pt unable to follow commands. She refused to open mouth for oral care and did not accept PO trials. [employer]NS[employer] updated RN, MD, RD re: recommendation for continuation of NPO status. Name: Shell Leone Date of : 1945 Age: 74 Date of Registration: 09/03/20 Speech Language Pathology Order Status:
--- NOTE | 2020-09-07 13:14 | PM.CNGS ---
History of Present Illness Consult details Consult date: 09/07/20 Narrative: [age] year female referred to me for PEG tube placement. She has long history of Parkinson's disease, and dementia and has been in the halfway for the past several months because of inability to do self-care at home. She apparently has had failure to thrive for the past 2-3 months now and has not been eating well at the halfway. According to her daughter Komal, the patient has lost about 25 lb for the past 2-3 months because of this. The daughter had not seen the patient at the halfway for the past 3 months more less because of COVID restrictions. She was able to visit her last SundaySeptember 03 and stated that she was concerned about the patient being very lethargic so she asked that the patient be brought to the emergency room. She was noted to be hypotensive despite IV fluid resuscitation and was therefore admitted intensive care unit. She had significant electrolyte imbalance likely due to her volume depletion. She was on pressors for couple of days. She was transferred out of the intensive care unit last September 05. She had been anemic as well although there has been no evidence of acute blood loss while here in the hospital. Her hemoglobin has been hovering in the area of his 7.0. In view of her failure to thrive, poor oral intake, I have been requested to put in a feeding tube. According to the daughter and patient sister Samantha, the patient has had declining health the past few months. She does not really communicate as well anymore and tends to mumble words. She also has a history of seizures as well. Review of Systems Constitutional: Constitutional: Denies chills, Denies fever(s), Reports weakness and Reports weight loss Cardiovascular: Cardiovascular: Denies chest pain Respiratory: Respiratory: Denies cough and Denies hemoptysis Gastrointestinal: Gastrointestinal: Denies coffee ground emesis and Denies diarrhea Genitourinary: Genitourinary: Denies hematuria Neurologic: Reports confusion and Reports weakness Psychiatric: Psychiatric: Reports confusion PMFSH Past Medical History Medical History Anxiety Depressed affect Dysphagia HTN (hypertension) Hyperlipemia 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 Pacemaker Parkinson disease Paroxysmal A-fib Pulmonary nodules/lesions, multiple Restless leg syndrome Surgical History Surgical History History of bladder surgery Social History Social History Alcohol intake: never Smoking Status: Never smoker service: No Current occupational status: disabled Meds Allergies Allergy/AdvReac Type Severity Reaction Status Date / Time Sulfa (Sulfonamide Allergy Unknown Unknown Verified 05/26/20 15:19 Antibiotics) tuberculin, purified protein Allergy Unknown Verified 05/26/20 15:19 deriva [From Tubersol] Active Medications: Current Medications Generic Name Dose Route Start Last Admin Trade Name Freq PRN Reason Stop Dose Admin Bacitracin 1 appl 09/04/20 00:10 09/07/20 07:18 Bacitracin Oint 14 Gm Tube TOPICAL 1 appl TID TAL Administration Protocol Dextrose 1,000 mls @ 50 mls/hr 09/07/20 10:45 D5w IVCONT .Q20H TAL Cefazolin Sodium/Dextrose 2 gm in 50 mls @ 100 mls/hr 09/08/20 12:01 Ancef IV 09/08/20 12:30 PREOP ONE Lorazepam 0.25 mg 09/05/20 21:00 09/07/20 10:01 Lorazepam 2 Mg/Ml Vial IVPUSH 0.25 mg BID TAL Administration Pantoprazole Sodium 40 mg 09/05/20 16:30 09/07/20 05:30 Pantoprazole Sodium 40 Mg/10 Ml Vial IVPUSH 40 mg BID@0630,1630 [facility] Administration Pharmacy Consult 1 each 09/03/20 18:02 Consult Rx Perform Med Rec MISCELLANE ONCE PRN Consult order Home Medications Medication Instructions Recorded Confirmed Last Taken Type aspirin 81 mg PO DAILY 09/03/20 09/03/20 Unknown History atorvastatin 40 mg PO DAILY 09/03/20 09/03/20 Unknown History carbidopa-levodopa 1 tab PO 5XD 09/03/20 09/03/20 Unknown History escitalopram oxalate 10 mg PO DAILY 09/03/20 09/03/20 Unknown History levetiracetam 125 mg PO BID 09/03/20 09/03/20 Unknown History metoprolol tartrate 25 mg PO BID 09/03/20 09/03/20 Unknown History mirtazapine [Remeron SolTab] 15 mg PO BEDTIME 09/03/20 09/03/20 Unknown History omeprazole 20 mg PO BID 09/03/20 09/03/20 Unknown History polyvinyl alcohol [Artificial 1 drp OPHTHALMIC (EYE) QID 09/03/20 09/03/20 Unknown History Tears Plus] promethazine 12.5 mg PO DAILY PRN 09/03/20 09/03/20 Unknown History promethazine 25 mg PO 0700,1100,1600 09/03/20 09/03/20 Unknown History sucralfate 10 ml PO Q6H 09/03/20 09/03/20 Unknown History tramadol 25 mg PO Q4H PRN 09/03/20 09/03/20 Unknown History Physical Exam Vital Signs: Vital Signs: Last Vital Signs Temp 97.5 F 09/07/20 12:00 Pulse 99 09/07/20 12:00 Resp 19 09/07/20 12:00 BP 112/63 09/07/20 12:00 Pulse Ox 95 09/07/20 12:00 Body Mass Index 24.2 Const: Other: Not communicative, no verbal output, appears very frail General: confusion Orientation/consciousness: confusion Neck: Neck: No no lymphadenopathy Resp: Effort & Inspection: abnormal respiratory effort and grunting Cardio: Rhythm: regular rhythm GI: Other: No abdominal wall surgical scars Palpation (GI): Soft to palpation, not firm and nontender Neuro: General: confusion Extrem: Other: Has edema of the left arm Results Labs Result diagrams: 09/07/20 06:19 09/08/20 05:59 Labs: Abnormal lab results 09/07/20 09/07/20 Range/Units 06:19 06:19 WBC 4.1 L (4.8-10.8) X10*3/uL RBC 2.61 L (4.20-5.50) X10*6/uL Hgb 7.0 L* (12.0-16.0) g/dl Hct 20.5 L* (37-47) % MCV 78.5 L (80-98) fL MCH 26.8 L (27.0-33.0) pg RDW 17.5 H (11.0-16.0) % Plt Count 136 L (160-400) X10*3/uL Sodium 147 H (135-145) mmol/L Potassium 3.1 L (3.3-5.1) mmol/L Chloride 113 H (96-108) mmol/L Calcium 7.0 L D (8.4-10.2) mg/dL Phosphorus 1.7 L (2.7-4.5) mg/dL Short CBC 09/07/20 Range/Units 06:19 WBC 4.1 L (4.8-10.8) X10*3/uL Hgb 7.0 L* (12.0-16.0) g/dl Hct 20.5 L* (37-47) % Plt Count 136 L (160-400) X10*3/uL BMP 09/07/20 06:19 Sodium 147 H Potassium 3.1 L Chloride 113 H Carbon Dioxide 24 BUN 11 Creatinine 0.52 Calcium 7.0 L D Urine 09/03/20 Range/Units 17:02 Urine Color YELLOW Urine Appearance CLEAR Urine pH 6.0 (5.0-8.0) Ur Specific [place] 1.025 (1.005-1.025) Urine Protein TRACE (NEG-TRACE) MG/DL Urine Glucose (UA) NEG (NEG) MG/DL All other labs normal. Assessment and Plan (1) Parkinsonism: Status: Acute 74-year-old female with failure to thrive, poor oral intake, referred to me for PEG tube placement. I had long and multiple discussions with with her her care proxy the daughter Komal Leone at [phone], and the patient's sister Samantha Doll at [phone] about the planned procedure. I explained to them the technique of of PEG tube placement. I reviewed the risks including but not limited to bleeding, infections, bowel injury, tube dislodgement, loss of airway, as well as benefits and alternatives. They understand that she presents with significant perioperative risks. However, in view of her declining health and failure to thrive, malnutrition, and poor oral intake, and they want to proceed with PEG tube placement. They have also explained that the patient is a practicing Buddhist, and they stated that even with bleeding that may lead to , blood transfusion should not be done under any circumstance. The etiology of her anemia is likely multifactorial, including chronic illness and poor nutrition. At this time, there is no evidence of acute blood loss. The planned procedure will also allow as to determine whether the patient has any gastritis or ulcers in the stomach. Her INR is within normal.
--- NOTE | 2020-09-07 13:22 | P.CONIM_ITS ---
History of Present Illness Data of Consult Service Date: 09/07/20 Requesting physician: John Noyola Primary Care Provider: Garry Tijerina MD [facility] Reason for consult: gluteal ulcer This is a 74-year-old [place] Leonean speaking woman who was brought in from the detention with seizure disorder. She has altered mental status. She is nonverbal with me today. She cannot open her eyes or answer questions regarding the date in Maltese or [place] Leonean. I saw her right before she was on her way down for EEG. There is also discussion of cardiac involvement with this admission. We are ask ed to evaluate gluteal ulceration. Since the patient is unable to speak with us, were are not clear on the chronicity of the problem, though we understand she comes from a local rehabilitation facility here in [place]. [facility] Medical History Anxiety Depressed affect Dysphagia HTN (hypertension) Hyperlipemia 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 Pacemaker Parkinson disease Paroxysmal A-fib Pulmonary nodules/lesions, multiple Restless leg syndrome Surgical History History of bladder surgery Social History Alcohol intake: never Smoking Status: Never smoker service: No Current occupational status: disabled Meds Allergies Allergy/AdvReac Type Severity Reaction Status Date / Time Sulfa (Sulfonamide Allergy Unknown Unknown Verified 05/26/20 15:19 Antibiotics) tuberculin, purified protein Allergy Unknown Verified 05/26/20 15:19 deriva [From Tubersol] Active Medications: Current Medications Generic Name Dose Route Start Last Admin Trade Name Daveyq PRN Reason Stop Dose Admin Bacitracin 1 appl 09/04/20 00:10 09/07/20 07:18 Bacitracin Oint 14 Gm Tube TOPICAL 1 appl TID TAL Administration Protocol Dextrose 1,000 mls @ 50 mls/hr 09/07/20 10:45 D5w IVCONT .Q20H TAL Cefazolin Sodium/Dextrose 2 gm in 50 mls @ 100 mls/hr 09/08/20 12:01 Ancef IV 09/08/20 12:30 PREOP ONE Lorazepam 0.25 mg 09/05/20 21:00 09/07/20 10:01 Lorazepam 2 Mg/Ml Vial IVPUSH 0.25 mg BID TAL Administration Pantoprazole Sodium 40 mg 09/05/20 16:30 09/07/20 05:30 Pantoprazole Sodium 40 Mg/10 Ml Vial IVPUSH 40 mg BID@0630,2740 [facility] Administration Pharmacy Consult 1 each 09/03/20 18:02 Consult Rx Perform Med Rec MISCELLANE ONCE PRN Consult order Home Medications Medication Instructions Recorded Confirmed Last Taken Type aspirin 81 mg PO DAILY 09/03/20 09/03/20 Unknown History atorvastatin 40 mg PO DAILY 09/03/20 09/03/20 Unknown History carbidopa-levodopa 1 tab PO 5XD 09/03/20 09/03/20 Unknown History escitalopram oxalate 10 mg PO DAILY 09/03/20 09/03/20 Unknown History levetiracetam 125 mg PO BID 09/03/20 09/03/20 Unknown History metoprolol tartrate 25 mg PO BID 09/03/20 09/03/20 Unknown History mirtazapine [Remeron SolTab] 15 mg PO BEDTIME 09/03/20 09/03/20 Unknown History omeprazole 20 mg PO BID 09/03/20 09/03/20 Unknown History polyvinyl alcohol [Artificial 1 drp OPHTHALMIC (EYE) QID 09/03/20 09/03/20 Unknown History Tears Plus] promethazine 12.5 mg PO DAILY PRN 09/03/20 09/03/20 Unknown History promethazine 25 mg PO 0700,1100,1600 09/03/20 09/03/20 Unknown History sucralfate 10 ml PO Q6H 09/03/20 09/03/20 Unknown History tramadol 25 mg PO Q4H PRN 09/03/20 09/03/20 Unknown History Physical Exam Vital Signs and Narrative: Vital Signs: Last Vital Signs Temp 97.5 F 09/07/20 12:00 Pulse 99 09/07/20 12:00 Resp 19 09/07/20 12:00 BP 112/63 09/07/20 12:00 Pulse Ox 95 09/07/20 12:00 Body Mass Index 24.2 H/H noted The patient only moans in response to our questions. She keeps her eyes closed. She is nonverbal. There is a small amount of dried sanguineous drainage around the lips raising the possibility of tongue laceration with recent seizure. With full assistance in rolling, we examine the gluteal cleft. There is denuded epilthelium with yellow slough, looking abraded in nature. The periwound is not ischemic, that is normal blanching is seen. No evidence of infection by way of erythema, edema, warmth nor streaking. Results Labs CBC and Chem 7: 09/07/20 06:19 09/07/20 06:19 Labs: Laboratory Results - last 24 hr 09/04/20 09/07/20 09/07/20 06:29 06:19 06:19 MCV 78.5 L MCH 26.8 L MCHC 34.1 RDW 17.5 H Plt Count 136 L MPV 11.9 Absolute Nucleated RBC 0.000 Nucleated RBC % (auto) 0.0 Smear Path Review SEE NOTE Anion Gap 13 Estim Creat Clear Calc 75.7 Estimated GFR > 60 Random Glucose 109 Calcium 7.0 L D Phosphorus 1.7 L Magnesium 1.6 Imaging Radiologist's Impressions: Impressions Venous Duplex 09/06/20 19:00 IMPRESSION: No DVT demonstrated in the left lower extremity. Venous Duplex 09/07/20 12:14 IMPRESSION: No DVT demonstrated in the left upper extremity. Assessment and Plan (1) Abrasion of buttock: Start date: 09/07/20 Qualifiers: Encounter type: sequela Qualified Code(s): S30.810S - Abrasion of lower back and pelvis, sequela Problem details: Friction/shear wound buttocks Status: Acute 74-year-old female admitted for seizure and altered mental status with cardiac workup in progress. Records indicate history of dementia. Patient is nonverbal at the time of my assessment. Buttock ulcers are not convincing for pressure related injury as full blanching is demonstrated of the periwound and there is no discoloration to suggest ischemia. Additionally, wounds are not located over a bony prominence. The wounds are superficial in nature, denuded epithelium and do not appear infected. Routine measures such as offloading are appropriate. Barrier cream for protection over the open areas would reduce the risk of ongoing friction and shear. Caution with sliding transfers should be taken to avoid worsening. Her nutritional status and other comorbidities may affect healing. Thank you for the courtesy of this consultation.
[2020-09-07] MEDS: Dextrose 5 % 1,000 ML 50 ML IVCONT (13:38)
--- NOTE | 2020-09-07 14:09 | HO.PM.IMPN ---
Subjective Subjective Date of Service: 09/07/20 Interval History: The patient was seen and evaluated this morning Laying in bed, looks comfortable Denies any pain No reported other overnight events. Systemic review: No fever, chills but weakness No chest pain, palpitation No shortness of breath or coughing Physical Exam Vital Signs: Vital Signs: Last Vital Signs Temp 97.5 F 09/07/20 12:00 Pulse 99 09/07/20 12:00 Resp 19 09/07/20 12:00 BP 112/63 09/07/20 12:00 Pulse Ox 95 09/07/20 12:00 Body Mass Index 24.2 Const: Other: Constitutional : Alert with stimulation, confused, not in distress Neck : Normal inspection, Supple Cardiovascular : RRR, S1 S2, no lower extremity edema Respiratory : fair bilateral air entry, no crackles, wheezes or rhonchi Gastrointestinal: soft, lax, Normal bowel sounds, Non tender Skin : Warm/Dry, No rash Neurological : Alert & confusion, No focal deficit Objective Data Current Medications Generic Name Dose Route Start Last Admin Trade Name Freq PRN Reason Stop Dose Admin Bacitracin 1 appl 09/04/20 00:10 09/07/20 13:39 Bacitracin Oint 14 Gm Tube TOPICAL 1 appl TID TAL Administration Protocol Dextrose 1,000 mls @ 50 mls/hr 09/07/20 10:45 09/07/20 13:38 D5w IVCONT 50 mls/hr .Q20H TAL Administration Cefazolin Sodium/Dextrose 2 gm in 50 mls @ 100 mls/hr 09/08/20 12:01 Ancef IV 09/08/20 12:30 PREOP ONE Lorazepam 0.25 mg 09/05/20 21:00 09/07/20 10:01 Lorazepam 2 Mg/Ml Vial IVPUSH 0.25 mg BID TAL Administration Pantoprazole Sodium 40 mg 09/05/20 16:30 09/07/20 05:30 Pantoprazole Sodium 40 Mg/10 Ml Vial IVPUSH 40 mg BID@0630,1630 [facility] Administration Pharmacy Consult 1 each 09/03/20 18:02 Consult Rx Perform Med Rec MISCELLANE ONCE PRN Consult order Labs CBC & Chem 7: 09/07/20 06:19 09/07/20 06:19 Microbiology Microbiology Results: Microbiology 09/03/20 16:52 Blood - Arterial Blood Culture - Preliminary No growth after 48 hours. 09/03/20 16:49 Blood - Arterial Blood Culture - Preliminary No growth after 48 hours. Assessment and Plan (1) Anemia: Status: Acute Assessment and Plan: This is a 74-year-old female with a past medical history of hypertension, hyperlipidemia, Parkinson's disease, paroxysmal AFib not on blood thinners for unknown reason, status post pacemaker, dysphagia, pulmonary nodule, latent TB who according to the history and physical had new onset seizures and was started on Keppra about 3 weeks ago. She was brought in from the [facility] for generalized weakness and failure to thrive, weight loss and reduced oral intake. She was noted to be profoundly hypotensive in the emergency room despite aggressive fluid resuscitation. She was subsequently admitted to the intensive care unit which she was treated with further fluid resuscitation and vasopressors. Ultimately she was transferred out on the evening of 09/05/2020. 1. Acute Encephalopathy multifactorial baseline unclear 2. HyperNa due to poor ora intake DC D51/2 @ 80 cc/hr start D5% 50 cc\hr foilow BMP 3. NSTEMI type 2 HS trop-I downtrended 4. Severe Anemia Hb to 7.5, likely dilutional Jehova's witness -- unable to transfuse 5. Parkinson's / seizures meds on hold from ICU (? cause of her ridigity) -- neurology evaluation 6. Dysphagia failed swallow evaluation Discussed with Jono Sepulveda and daughter to place PEG tube tomorrow General surgery input appreciated Full Code DVT pptx, mechanical due to severe anemia
--- NOTE | 2020-09-07 14:17 | W.MHC.ACPN ---
Advanced Care Planning Note Advanced Care Planning Note Discussed with: family member(s) Time spent (in minutes): 20 Narrative: I had a chance to speak with the healthcare proxy and daughter the patient regarding her ongoing medical problems and hospital stay. The patient was admitted to the hospital for evaluation of increased weakness and failure to thrive with weight loss. She was treated primarily with aggressive fluid station in ICU for low blood pressure and transferred to the medical floor after becoming stable. Found to be dehydrated, encephalopathic with significant anemia. Patient refused transfusion as she is a Jehovah's witnesses. We discussed the current situation as the patient is not eating and failed swallowing evaluation. Her code status remains to be full code which was addressed with her HCP as DNR and comfort measures were explained to her that she would prefer to keep the patient full code at this point and to think about it later. Discussing diet. I suggested placing a PEG tube for feeding which the daughter agree to and surgery would evaluate the patient for placement of it. Meanwhile will continue to treat the patient and repair her to be discharged home with services. Will keep her status as full code and will rediscuss this topic with the daughter later. Problems Discussed (1) Parkinsonism: (2) Altered mental status: (3) FTT (failure to thrive) in adult:
--- NOTE | 2020-09-07 15:05 | MHC.CLN ---
F/U CELL LINER REC NPO 09/07; FAMILY WANTS PEG PER MD WHEN TF PLACED; RECOMMEND JEVITY AT MAX GOAL RATE 65CC/HR WITH 120CC FREE WATER FLUSHES Q SHIFT TO PROVIDE 1654KCALS (31KCALS/KG), 65G PROTEIN (1.2G/KG), 1663CC TOTAL WATER FROM FORMULA AND FLUSHES (31CC/KG) MONITOR TOLERANCE, RESIDUALS AND LYTES FOLLOWING
[2020-09-07 16:00] VITALS: BP 138/86; PULSE 104; RESP 19; TEMP 36.6; O2SAT 94
--- NOTE | 2020-09-07 17:36 | P.CNNE_ITS ---
History of Present Illness Data of Consult Service Date: 09/07/20 Primary Care Provider: Garry Tijerina MD HPI Reason for consult: Altered mental status in the recent seizure-like episode This is a 73-year-old woman was admitted from a longterm with unresponsiveness and is unable to give any information. She does not verbalize or follow any commands. She was admitted here a few weeks ago with possible seizure and started on Keppra and is now admitted because of his significant change in mental status. Recent CAT scan showed age-related atrophy and microvascular white matter changes. Review of Systems Eyes: Eyes: Reports no additional eye complaints ENT: Reports system reviewed and no additional complaints, except as documented Cardiovascular: Cardiovascular: Reports no additional cardiovascular complaints Respiratory: Respiratory: Reports no additional respiratory complaints Gastrointestinal: Gastrointestinal: Reports no additional gastrointestinal complaints Musculoskeletal: Musculoskeletal: Reports no additional musculoskeletal complaints Integumentary/Breasts: Skin/Breast: Reports system reviewed and no additional complaints, except as docu Neurologic: Reports as per HPI Psychiatric: Psychiatric: Reports as per HPI Endocrine: Endocrine: Reports no additional endocrine complaints Hematologic/Lymphatic: Hematologic/Lymphatic: Reports no additional hematologic/lymphatic complaints Allergic/Immunologic: Allergic/Immunologic: Reports no additional allergic/immunologic complaints PMFSH Past Medical History Medical History Anxiety Depressed affect Dysphagia HTN (hypertension) Hyperlipemia 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 Pacemaker Parkinson disease Paroxysmal A-fib Pulmonary nodules/lesions, multiple Restless leg syndrome Surgical History Surgical History History of bladder surgery Social History Social History Alcohol intake: never Smoking Status: Never smoker service: No Current occupational status: disabled Meds Allergies Allergy/AdvReac Type Severity Reaction Status Date / Time Sulfa (Sulfonamide Allergy Unknown Unknown Verified 05/26/20 15:19 Antibiotics) tuberculin, purified protein Allergy Unknown Verified 05/26/20 15:19 deriva [From Tubersol] Active Medications: Current Medications Generic Name Dose Route Start Last Admin Trade Name Freq PRN Reason Stop Dose Admin Bacitracin 1 appl 09/04/20 00:10 09/07/20 13:39 Bacitracin Oint 14 Gm Tube TOPICAL 1 appl TID TAL Administration Protocol Dextrose 1,000 mls @ 50 mls/hr 09/07/20 10:45 09/07/20 13:38 D5w IVCONT 50 mls/hr .Q20H TAL Administration Cefazolin Sodium/Dextrose 2 gm in 50 mls @ 100 mls/hr 09/08/20 12:01 Ancef IV 09/08/20 12:30 PREOP ONE Lorazepam 0.25 mg 09/05/20 21:00 09/07/20 10:01 Lorazepam 2 Mg/Ml Vial IVPUSH 0.25 mg BID TAL Administration Pantoprazole Sodium 40 mg 09/05/20 16:30 09/07/20 05:30 Pantoprazole Sodium 40 Mg/10 Ml Vial IVPUSH 40 mg BID@0630,1630 TAL Administration Pharmacy Consult 1 each 09/03/20 18:02 Consult Rx Perform Med Rec MISCELLANE ONCE PRN Consult order Home Medications Medication Instructions Recorded Confirmed Last Taken Type aspirin 81 mg PO DAILY 09/03/20 09/03/20 Unknown History atorvastatin 40 mg PO DAILY 09/03/20 09/03/20 Unknown History carbidopa-levodopa 1 tab PO 5XD 09/03/20 09/03/20 Unknown History escitalopram oxalate 10 mg PO DAILY 09/03/20 09/03/20 Unknown History levetiracetam 125 mg PO BID 09/03/20 09/03/20 Unknown History metoprolol tartrate 25 mg PO BID 09/03/20 09/03/20 Unknown History mirtazapine [Remeron SolTab] 15 mg PO BEDTIME 09/03/20 09/03/20 Unknown History omeprazole 20 mg PO BID 09/03/20 09/03/20 Unknown History polyvinyl alcohol [Artificial 1 drp OPHTHALMIC (EYE) QID 09/03/20 09/03/20 Unknown History Tears Plus] promethazine 12.5 mg PO DAILY PRN 09/03/20 09/03/20 Unknown History promethazine 25 mg PO 0700,1100,1600 09/03/20 09/03/20 Unknown History sucralfate 10 ml PO Q6H 09/03/20 09/03/20 Unknown History tramadol 25 mg PO Q4H PRN 09/03/20 09/03/20 Unknown History Physical Exam Vital Signs: Vital Signs: Last Vital Signs Temp 97.8 F 09/07/20 16:00 Pulse 104 H 09/07/20 16:00 Resp 19 09/07/20 16:00 BP 138/86 09/07/20 16:00 Pulse Ox 94 09/07/20 16:00 Body Mass Index 24.2 Const: General: lethargic and patient obtunded Nutritional Appearance: well nourished Orientation/consciousness: patient obtunded and lethargic Limitations: altered mental status HENMT: Head: Yes normal to inspection, Yes normocephalic and Yes atraumatic Ears: hearing grossly normal bilaterally General nose exam: Normal external nose present Face and sinus: Yes normal facial exam Eyes: Alignment and Position: alignment normal Periorbital: periorbital findings normal Eyelids: Yes eyelids normal Conjunctivae: conjunctivae normal Pupils: Equal, round and reactive pupils present Direct Ophthalmoscopy: normal light reflex Neck: Neck: Yes normal visual inspection, Yes full ROM and Yes no meningeal signs Thyroid: Thyroid normal Carotids: normal carotid upstroke and bounding pulses Chest: Chest palpation & inspection: normal inspection of the chest Resp: Effort & Inspection: normal respiratory effort Auscultation: clear to auscultation bilaterally Cardio: Rate: regular rate Rhythm: regular rhythm Heart sounds: S1 normal heart sound present and S2 normal heart sound present Peripheral pulses: Peripheral pulses 2+ throughout GI: Inspection: Yes normal to inspection Percussion: Yes normal to percussion Auscultation: normal bowel sounds Rectal Exam - Female: def erred Back/Spine/Pelvis: Cervical Spine: normal cervical lordosis and cervical ROM normal Thoracic/Lumbar Spine: thoracic and lumbar spine normal to inspection Skin: General skin exam: no rashes or lesions noted Neuro: General: moves all extremities, no meningeal signs, no focal motor deficits, deep tendon reflexes 2+ bilaterally and patient obtunded Cranial nerves: Yes Equal, round and reactive pupils present Speech: Other speech findings present (Neuro) Motor exam (neuro): no tremor noted, no asterixis, Motor fasciculations not present, Normal motor muscle tone present throughout and Motor abnormalities not present Deep tendon reflexes (DTR's): Right triceps reflex intensity grade: 2+, Left triceps reflex intensity grade: 2+, Rt Biceps (C5, C6): 2+, Left biceps reflex intensity grade: 2+, Right brachioradialis reflex intensity grade: 2+, Left brachioradialis reflex intensity grade: 2+, Right patellar reflex intensity grade: 2+, Left patellar reflex intensity grade: 2+, Right ankle reflex intensity grade: 2+ and Left ankle reflex intensity grade: 2+ Plantar Reflex Responses: downgoing: right, left and bilateral Pupils: Normal pupillary reactivity/response: bilateral Extrem: General: Yes normal to inspection, Yes normal exam except as noted and Yes no pedal edema Psych: Appearance: grossly normal Mental Status: mental status grossly normal Speech and movement: Normal speech and movement present and Clear speech present Affect: normal affect Attitude: cooperative Thought process: Normal thought process present Results Labs CBC & Chem 7: 09/07/20 06:19 09/07/20 06:19 Labs: Short CBC 09/07/20 Range/Units 06:19 WBC 4.1 L (4.8-10.8) X10*3/uL Hgb 7.0 L* (12.0-16.0) g/dl Hct 20.5 L* (37-47) % Plt Count 136 L (160-400) X10*3/uL BMP 09/07/20 06:19 Sodium 147 H Potassium 3.1 L Chloride 113 H Carbon Dioxide 24 BUN 11 Creatinine 0.52 Calcium 7.0 L D Microbiology Microbiology Results: Microbiology 09/03/20 16:52 Blood - Arterial Blood Culture - Preliminary No growth after 48 hours. 09/03/20 16:49 Blood - Arterial Blood Culture - Preliminary No growth after 48 hours. Assessment and Plan (1) Altered mental status: Problem details: Metabolic encephalopathy. No evidence of underlying status epilepticus on EEG. No seizure recurrence. Status: Acute Correction of metabolic abnormalities (2) Dementia: Problem details: Donepezil 5 mg daily Status: Acute (3) Seizure disorder: Problem details: No seizure recurrence. Because of her mental status I would stop her Ride this time and not start any antiepileptic drug. Her EEG shows diffuse encephalopath ic process with no seizure discharges. Status: Acute
[2020-09-07 19:52] VITALS: BP 161/92; PULSE 101; RESP 16; TEMP 36.2; O2SAT 94
[2020-09-08] VITALS (13 sets, daily range): BP systolic 83–139; BP diastolic 48–83; PULSE 80–105; RESP 16–28; TEMP 36.1–36.7; O2SAT 91–99; BMI 24.5
--- NOTE | 2020-09-08 | ECG_ITS ---
Test Reason : sob Blood Pressure : / mmHG Vent. Rate : 117 BPM Atrial Rate : 060 BPM P-R Int : 000 ms QRS Dur : 082 ms QT Int : 314 ms P-R-T Axes : 000 -07 163 degrees QTc Int : 438 ms Atrial fibrillation with rapid ventricular response ST & T wave abnormality, consider inferior ischemia ST-T changes consider anterior ischemia Abnormal ECG When compared to the previous EKG of Atrial fibrillation is present now Referred By: Thomas Elliott Electronically Signed By:Nirmal Magaña
[2020-09-08] MEDS: LORazepam 2 MG/ML VIAL 0.25 MG IVPUSH (02:43)
[2020-09-08] MEDS: Pantoprazole Sodium 40 MG/10 ML VIAL IVPUSH ×2 (05:43→16:30)
[2020-09-08 07:32] LABS: Anion Gap 11 (12-20); Blood Urea Nitrogen 10 mg/dL (9-16); Calcium 6.8 mg/dL (8.4-10.2); Carbon Dioxide 26 mmol/L (22-29); Chloride 108 mmol/L (96-108); Creatinine Clr Calc Pharmacy 77.7; Estimated Glomerular Filt Rate > 60; Glucose Random 96 mg/dL (60-115); Potassium 2.8 mmol/L (3.3-5.1); Sodium 142 mmol/L (135-145)
[2020-09-08] MEDS: Dextrose 5 % 1,000 ML 50 ML IVCONT ×2 (08:09→16:29)
[2020-09-08] MEDS: Potassium Chloride/H20 10 MEQ/100 ML PIGGYBACK 100 MEQ IV ×2 (08:11→09:30)
[2020-09-08] MEDS: Bacitracin Oint 14 GM TUBE 1 APPL TOPICAL ×3 (08:23→22:11)
--- NOTE | 2020-09-08 09:59 | HO.PM.IMPN ---
Subjective Subjective Date of Service: 09/08/20 Interval History: The patient was seen and evaluated this morning Laying in bed, looks comfortable, answers with yes and no but not opening eyes Denies any pain No reported other overnight events. Systemic review: No fever, chills but weakness No chest pain, palpitation No shortness of breath or coughing Physical Exam Vital Signs: Vital Signs: Last Vital Signs Temp 98.1 F 09/08/20 08:00 Pulse 103 H 09/08/20 08:00 Resp 17 09/08/20 08:00 BP 121/67 09/08/20 08:00 Pulse Ox 94 09/08/20 08:00 Body Mass Index 24.5 Const: Other: Constitutional : Alert with stimulation, confused, not in distress Neck : Normal inspection, Supple Cardiovascular : RRR, S1 S2, no lower extremity edema Respiratory : fair bilateral air entry, no crackles, wheezes or rhonchi Gastrointestinal: soft, lax, Normal bowel sounds, Non tender Skin : Warm/Dry, No rash Neurological : Alert & confusion, No focal deficit Objective Data Current Medications Generic Name Dose Route Start Last Admin Trade Name Freq PRN Reason Stop Dose Admin Bacitracin 1 appl 09/04/20 00:10 09/08/20 08:23 Bacitracin Oint 14 Gm Tube TOPICAL 1 appl TID TAL Administration Protocol Dextrose 1,000 mls @ 50 mls/hr 09/07/20 10:45 09/08/20 08:09 D5w IVCONT 50 mls/hr .Q20H TAL Administration Cefazolin Sodium/Dextrose 2 gm in 50 mls @ 100 mls/hr 09/08/20 12:01 Ancef IV 09/08/20 12:30 PREOP ONE Lorazepam 0.25 mg 09/05/20 21:00 09/08/20 02:43 Lorazepam 2 Mg/Ml Vial IVPUSH 0.25 mg BID TAL Administration Pantoprazole Sodium 40 mg 09/05/20 16:30 09/08/20 05:43 Pantoprazole Sodium 40 Mg/10 Ml Vial IVPUSH 40 mg BID@0630,1630 TAL Administration Pharmacy Consult 1 each 09/03/20 18:02 Consult Rx Perform Med Rec MISCELLANE ONCE PRN Consult order Labs CBC & Chem 7: 09/07/20 06:19 09/08/20 05:59 Microbiology Microbiology Results: Microbiology 09/03/20 16:52 Blood - Arterial Blood Culture - Preliminary No growth after 48 hours. 09/03/20 16:49 Blood - Arterial Blood Culture - Preliminary No growth after 48 hours. Assessment and Plan (1) Anemia: Status: Acute Assessment and Plan: This is a 74-year-old female with a past medical history of hypertension, hyperlipidemia, Parkinson's disease, paroxysmal AFib not on blood thinners for unknown reason, status post pacemaker, dysphagia, pulmonary nodule, latent TB who according to the history and physical had new onset seizures and was started on Keppra about 3 weeks ago. She was brought in from the senior living for generalized weakness and failure to thrive, weight loss and reduced oral intake. She was noted to be profoundly hypotensive in the emergency room despite aggressive fluid resuscitation. She was subsequently admitted to the intensive care unit which she was treated with further fluid resuscitation and vasopressors. Ultimately she was transferred out on the evening of 09/05/2020. 1. Acute Encephalopathy multifactorial baseline unclear 2. HyperNa due to poor ora intake continue D5% 50 cc\hr foilow BMP 3. NSTEMI type 2 HS trop-I downtrended 4. Severe Anemia Hb to 7.5, likely dilutional Jehova's witness -- unable to transfuse 5. Parkinson's / seizures meds on hold from ICU (? cause of her ridigity) -- neurology evaluation 6. Dysphagia failed swallow evaluation to place PEG tube today General surgery input appreciated 7. Hypokalemia K of 2.8 To give IV replacement follow BMP Full Code DVT pptx, mechanical due to severe anemia
--- NOTE | 2020-09-08 10:33 | MHC.SLORD ---
Pt NPO per MANAGER OF RECRUITING recommendation. Per hospitalist note this morning, pt to have PEG tube placed later today. PO trials not appropriate. Name: Shell Leone Date of : 1945 Age: 74 Date of Registration: 09/03/20 Speech Language Pathology Order Status:
--- NOTE | 2020-09-08 10:47 | PC.NURSE ---
spoke to emeli jovel rn to ask hopitalist for a new order to redraw patients potassium level prior to procedure. per md gore.
[2020-09-08 12:27] LABS: Potassium 3.8 mmol/L (3.3-5.1)
--- NOTE | 2020-09-08 12:37 | MHC.CLN ---
F/U RECOMMEND JEVITY AT MAX GOAL RATE 65CC/HR WITH 120CC FREE WATER FLUSHES Q SHIFT TO PROVIDE 1654KCALS (31KCALS/KG), 65G PROTEIN (1.2G/KG), 1663CC TOTAL WATER FROM FORMULA AND FLUSHES (31CC/KG) START TF JEVITY AT 20CC/HR AND INCREASE BY 10CC Q 4HRS UNTIL MAX GOAL ACHIEVED MONITOR TOLERANCE, RESIDUALS AND LYTES
--- NOTE | 2020-09-08 12:54 | HO.ANESPROP2 ---
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) Pulmonary nodules/lesions, multiple (Chronic) Past Medical History Medical History Anxiety Depressed affect Dysphagia HTN (hypertension) Hyperlipemia 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 Pacemaker Parkinson disease Paroxysmal A-fib Pulmonary nodules/lesions, multiple Restless leg syndrome Family History Family history of problems with anesthesia: No Surgical History Surgical History History of bladder surgery History of Problems with Anesthesia: No Social History Social History Alcohol intake: never Smoking Status: Never smoker service: No Current occupational status: disabled Meds Allergies Allergy/AdvReac Type Severity Reaction Status Date / Time Sulfa (Sulfonamide Allergy Unknown Unknown Verified 05/26/20 15:19 Antibiotics) tuberculin, purified protein Allergy Unknown Verified 05/26/20 15:19 deriva [From Tubersol] Active Medications: Current Medications Generic Name Dose Route Start Last Admin Trade Name Freq PRN Reason Stop Dose Admin Bacitracin 1 appl 09/04/20 00:10 09/08/20 08:23 Bacitracin Oint 14 Gm Tube TOPICAL 1 appl TID TAL Administration Protocol Dextrose 1,000 mls @ 50 mls/hr 09/07/20 10:45 09/08/20 08:09 D5w IVCONT 50 mls/hr .Q20H TAL Administration Lorazepam 0.25 mg 09/05/20 21:00 09/08/20 02:43 Lorazepam 2 Mg/Ml Vial IVPUSH 0.25 mg BID TAL Administration Pantoprazole Sodium 40 mg 09/05/20 16:30 09/08/20 05:43 Pantoprazole Sodium 40 Mg/10 Ml Vial IVPUSH 40 mg BID@0630,1630 [facility] Administration Pharmacy Consult 1 each 09/03/20 18:02 Consult Rx Perform Med Rec MISCELLANE ONCE PRN Consult order Home Medications Medication Instructions Recorded Confirmed Last Taken Type aspirin 81 mg PO DAILY 09/03/20 09/03/20 Unknown History atorvastatin 40 mg PO DAILY 09/03/20 09/03/20 Unknown History carbidopa-levodopa 1 tab PO 5XD 09/03/20 09/03/20 Unknown History escitalopram oxalate 10 mg PO DAILY 09/03/20 09/03/20 Unknown History levetiracetam 125 mg PO BID 09/03/20 09/03/20 Unknown History metoprolol tartrate 25 mg PO BID 09/03/20 09/03/20 Unknown History mirtazapine [Remeron SolTab] 15 mg PO BEDTIME 09/03/20 09/03/20 Unknown History omeprazole 20 mg PO BID 09/03/20 09/03/20 Unknown History polyvinyl alcohol [Artificial 1 drp OPHTHALMIC (EYE) QID 09/03/20 09/03/20 Unknown History Tears Plus] promethazine 12.5 mg PO DAILY PRN 09/03/20 09/03/20 Unknown History promethazine 25 mg PO 0700,1100,1600 09/03/20 09/03/20 Unknown History sucralfate 10 ml PO Q6H 09/03/20 09/03/20 Unknown History tramadol 25 mg PO Q4H PRN 09/03/20 09/03/20 Unknown History Exam Exam Date and Time: September 08, 2020 1254 Height,Weight and Vital Signs: Height 5 ft Weight 57.1 kg Last Vital Signs Temp 97.8 F 09/08/20 12:26 Pulse 105 H 09/08/20 12:26 Resp 28 H 09/08/20 12:26 BP 139/75 09/08/20 12:26 Pulse Ox 97 09/08/20 12:26 Pertinent Lab Results Pertinent Lab Results: Laboratory Tests 09/03/20 09/03/20 09/03/20 16:49 16:49 16:49 WBC 7.6 RBC 3.52 L D Hgb 9.3 L D Hct 28.3 L D MCV 80.4 MCH 26.4 L MCHC 32.9 RDW 17.6 H Plt Count 230 D MPV 10.3 Immature Gran % (Auto) 0.8 H Neut % (Auto) 87.4 H Lymph % (Auto) 8.0 L [place] % (Auto) 3.8 Eos % (Auto) 0.0 Baso % (Auto) 0.0 Lymph # (Auto) 0.6 L [place] # (Auto) 0.3 Eos # (Auto) 0.0 Baso # (Auto) 0.0 Abs Immat Gran (auto) 0.06 H Absolute Neuts (auto) 6.7 Absolute Nucleated RBC 0.040 H Nucleated RBC % (auto) 0.5 H Smear Tech's Comments VERIFIED Smear Path Review PT INR APTT Sodium 152 H Potassium 2.6 L Chloride 110 H Carbon Dioxide 30 H Anion Gap 15 BUN 47 H D Creatinine 1.07 Estim Creat Clear Calc 36.8 Estimated GFR 50 Random Glucose 159 H Lactic Acid 2.3 H* Lactic Acid Fup @ 2Hr Calcium 8.2 L D Phosphorus Magnesium 2.4 Total Bilirubin 0.7 Direct Bilirubin 0.4 AST 11 ALT < 6 Alkaline Phosphatase 87 D Ammonia Troponin I High Sens B-Natriuretic Peptide Total Protein 5.4 L Albumin 3.1 L Lipase 20 Vitamin B12 Folate Urine Color Urine Appearance Urine pH Ur Specific [place] Urine Protein Urine Glucose (UA) Urine Ketones Urine Blood Urine Nitrite Ur Leukocyte Esterase COVID-19 (RICK) COVID-19 Clin Com Blood Type Antibody Screen Crossmatch 09/03/20 09/03/20 09/03/20 16:49 16:49 17:02 WBC RBC Hgb Hct MCV MCH MCHC RDW Plt Count MPV Immature Gran % (Auto) Neut % (Auto) Lymph % (Auto) [place] % (Auto) Eos % (Auto) Baso % (Auto) Lymph # (Auto) [place] # (Auto) Eos # (Auto) Baso # (Auto) Abs Immat Gran (auto) Absolute Neuts (auto) Absolute Nucleated RBC Nucleated RBC % (auto) Smear Tech's Comments Smear Path Review PT INR APTT Sodium Potassium Chloride Carbon Dioxide Anion Gap BUN Creatinine Estim Creat Clear Calc Estimated GFR Random Glucose Lactic Acid Lactic Acid Fup @ 2Hr Calcium Phosphorus Magnesium Total Bilirubin Direct Bilirubin AST ALT Alkaline Phosphatase Ammonia Troponin I High Sens 1032.9 H D B-Natriuretic Peptide 584 H Total Protein Albumin Lipase Vitamin B12 Folate Urine Color YELLOW Urine Appearance CLEAR Urine pH 6.0 Ur Specific [place] 1.025 Urine Protein TRACE Urine Glucose (UA) NEG Urine Ketones 15 Urine Blood NEG Urine Nitrite NEG Ur Leukocyte Esterase NEG COVID-19 (RICK) Negative COVID-19 Clin Com See Note Blood Type Antibody Screen Crossmatch 09/03/20 09/03/20 09/03/20 21:49 21:49 22:52 WBC RBC Hgb Hct MCV MCH MCHC RDW Plt Count MPV Immature Gran % (Auto) Neut % (Auto) Lymph % (Auto) [place] % (Auto) Eos % (Auto) Baso % (Auto) Lymph # (Auto) [place] # (Auto) Eos # (Auto) Baso # (Auto) Abs Immat Gran (auto) Absolute Neuts (auto) Absolute Nucleated RBC Nucleated RBC % (auto) Smear Tech's Comments Smear Path Review PT INR APTT Sodium 151 H 149 H Potassium 2.6 L 2.4 L* Chloride 115 H 114 H Carbon Dioxide 27 27 Anion Gap 12 10 L BUN 44 H 44 H Creatinine 0.86 0.90 Estim Creat Clear Calc 45.8 43.8 Estimated GFR > 60 > 60 Random Glucose 159 H 181 H Lactic Acid Lactic Acid Fup @ 2Hr 1.8 Calcium 7.4 L D 7.4 L Phosphorus Magnesium 2.2 Total Bilirubin 0.6 Direct Bilirubin AST 7 ALT < 6 Alkaline Phosphatase 63 D Ammonia Troponin I High Sens B-Natriuretic Peptide Total Protein 4.7 L Albumin 3.0 L Lipase Vitamin B12 Folate Urine Color Urine Appearance Urine pH Ur Specific [place] Urine Protein Urine Glucose (UA) Urine Ketones Urine Blood Urine Nitrite Ur Leukocyte Esterase COVID-19 (RICK) COVID-19 Clin Com Blood Type Antibody Screen Crossmatch 09/03/20 09/03/20 09/04/20 22:52 22:52 00:59 WBC RBC Hgb Hct MCV MCH MCHC RDW Plt Count MPV Immature Gran % (Auto) Neut % (Auto) Lymph % (Auto) [place] % (Auto) Eos % (Auto) Baso % (Auto) Lymph # (Auto) [place] # (Auto) Eos # (Auto) Baso # (Auto) Abs Immat Gran (auto) Absolute Neuts (auto) Absolute Nucleated RBC Nucleated RBC % (auto) Smear Tech's Comments Smear Path Review PT INR APTT Sodium 148 H Potassium 3.2 L D Chloride 113 H Carbon Dioxide 26 Anion Gap 12 BUN 45 H Creatinine 0.90 Estim Creat Clear Calc 43.8 Estimated GFR > 60 Random Glucose 190 H Lactic Acid 1.8 Lactic Acid Fup @ 2Hr Calcium 7.6 L Phosphorus Magnesium Total Bilirubin 0.9 Direct Bilirubin AST 8 ALT < 6 Alkaline Phosphatase 67 Ammonia Troponin I High Sens 685.5 H B-Natriuretic Peptide Total Protein 5.2 L Albumin 3.3 L Lipase Vitamin B12 Folate Urine Color Urine Appearance Urine pH Ur Specific [place] Urine Protein Urine Glucose (UA) Urine Ketones Urine Blood Urine Nitrite Ur Leukocyte Esterase COVID-19 (RICK) COVID-19 Code [facility] Com Blood Type Antibody Screen Crossmatch 09/04/20 09/04/20 09/04/20 00:59 00:59 05:10 WBC 7.9 RBC 2.57 L D Hgb 6.8 L* D Hct 20.6 L* D MCV 80.2 MCH 26.5 L MCHC 33.0 RDW 17.6 H Plt Count 204 MPV 10.9 Immature Gran % (Auto) 0.8 H Neut % (Auto) 84.9 H Lymph % (Auto) 11.8 L [place] % (Auto) 2.5 Eos % (Auto) 0.0 Baso % (Auto) 0.0 Lymph # (Auto) 0.9 L [place] # (Auto) 0.2 Eos # (Auto) 0.0 Baso # (Auto) 0.0 Abs Immat Gran (auto) 0.06 H Absolute Neuts (auto) 6.7 Absolute Nucleated RBC 0.030 H Nucleated RBC % (auto) 0.4 H Smear Tech's Comments Smear Path Review PT 18.1 H INR 1.5 H APTT 31.1 Sodium Potassium Chloride Carbon Dioxide Anion Gap BUN Creatinine Estim Creat Clear Calc Estimated GFR Random Glucose Lactic Acid Lactic Acid Fup @ 2Hr Calcium Phosphorus Magnesium Total Bilirubin Direct Bilirubin AST ALT Alkaline Phosphatase Ammonia Troponin I High Sens 802.0 H B-Natriuretic Peptide Total Protein Albumin Lipase Vitamin B12 Folate Urine Color Urine Appearance Urine pH Ur Specific [place] Urine Protein Urine Glucose (UA) Urine Ketones Urine Blood Urine Nitrite Ur Leukocyte Esterase COVID-19 (RICK) COVID-19 [facility] Com Blood Type Antibody Screen Crossmatch 09/04/20 09/04/20 09/04/20 05:10 05:10 05:10 WBC RBC Hgb Hct MCV MCH MCHC RDW Plt Count MPV Immature Gran % (Auto) Neut % (Auto) Lymph % (Auto) [place] % (Auto) Eos % (Auto) Baso % (Auto) Lymph # (Auto) [place] # (Auto) Eos # (Auto) Baso # (Auto) Abs Immat Gran (auto) Absolute Neuts (auto) Absolute Nucleated RBC Nucleated RBC % (auto) Smear Tech's Comments Smear Path Review PT 18.4 H INR 1.5 H APTT 30.9 Sodium 148 H Potassium 3.0 L Chloride 114 H Carbon Dioxide 25 Anion Gap 12 BUN 44 H Creatinine 0.89 Estim Creat Clear Calc 44.3 Estimated GFR > 60 Random Glucose 192 H Lactic Acid Lactic Acid Fup @ 2Hr Calcium 7.8 L Phosphorus 1.1 L Magnesium 2.1 Total Bilirubin Direct Bilirubin AST ALT Alkaline Phosphatase Ammonia Troponin I High Sens 572.0 H B-Natriuretic Peptide 728 H Total Protein Albumin 3.2 L Lipase Vitamin B12 Folate Urine Color Urine Appearance Urine pH Ur Specific [place] Urine Protein Urine Glucose (UA) Urine Ketones Urine Blood Urine Nitrite Ur Leukocyte Esterase COVID-19 (RICK) COVID-19 Clin Com Blood Type Antibody Screen Crossmatch 09/04/20 09/04/20 09/04/20 06:29 09:13 14:22 WBC 8.4 RBC 2.58 L Hgb 6.9 L* Hct 20.8 L* MCV 80.6 MCH 26.7 L MCHC 33.2 RDW 17.6 H Plt Count 207 MPV 11.1 Immature Gran % (Auto) 0.8 H Neut % (Auto) 85.2 H Lymph % (Auto) 10.8 L [place] % (Auto) 3.1 Eos % (Auto) 0.0 Baso % (Auto) 0.1 Lymph # (Auto) 0.9 L [place] # (Auto) 0.3 Eos # (Auto) 0.0 Baso # (Auto) 0.0 Abs Immat Gran (auto) 0.07 H Absolute Neuts (auto) 7.1 Absolute Nucleated RBC 0.030 H Nucleated RBC % (auto) 0.4 H Smear Tech's Comments Smear Path Review SEE NOTE PT INR APTT Sodium 149 H Potassium 3.0 L Chloride 115 H Carbon Dioxide 26 Anion Gap 11 L BUN 38 H Creatinine 0.70 Estim Creat Clear Calc 51.3 Estimated GFR > 60 Random Glucose 131 H Lactic Acid Lactic Acid Fup @ 2Hr Calcium 7.7 L Phosphorus 2.1 L Magnesium 2.0 Total Bilirubin Direct Bilirubin AST ALT Alkaline Phosphatase Ammonia Troponin I High Sens B-Natriuretic Peptide Total Protein Albumin Lipase Vitamin B12 Folate Urine Color Urine Appearance Urine pH Ur Specific [place] Urine Protein Urine Glucose (UA) Urine Ketones Urine Blood Urine Nitrite Ur Leukocyte Esterase COVID-19 (RICK) COVID-19 Clin Com Blood Type A Negative Antibody Screen NEGATIVE Crossmatch See Detail 09/05/20 09/05/20 09/05/20 05:14 05:14 05:14 WBC 7.8 RBC 2.59 L Hgb 6.8 L* Hct 20.7 L* MCV 79.9 L MCH 26.3 L MCHC 32.9 RDW 17.6 H Plt Count 181 MPV 11.2 Immature Gran % (Auto) 0.5 H Neut % (Auto) 84.4 H Lymph % (Auto) 12.6 L [place] % (Auto) 1.5 L Eos % (Auto) 1.0 Baso % (Auto) 0.0 Lymph # (Auto) 1.0 L [place] # (Auto) 0.1 Eos # (Auto) 0.1 Baso # (Auto) 0.0 Abs Immat Gran (auto) 0.04 H Absolute Neuts (auto) 6.6 Absolute Nucleated RBC 0.000 Nucleated RBC % (auto) 0.0 Smear Tech's Comments Smear Path Review PT 17.0 H INR 1.4 H APTT 31.8 Sodium 145 Potassium 3.5 Chloride 114 H Carbon Dioxide 23 Anion Gap 12 BUN 24 H Creatinine 0.62 Estim Creat Clear Calc 63.1 Estimated GFR > 60 Random Glucose 122 H Lactic Acid Lactic Acid Fup @ 2Hr Calcium 7.2 L D Phosphorus Magnesium Total Bilirubin Direct Bilirubin AST ALT Alkaline Phosphatase Ammonia Troponin I High Sens B-Natriuretic Peptide Total Protein Albumin 2.8 L Lipase Vitamin B12 Folate Urine Color Urine Appearance Urine pH Ur Specific [place] Urine Protein Urine Glucose (UA) Urine Ketones Urine Blood Urine Nitrite Ur Leukocyte Esterase COVID-19 (RICK) COVID-19 Clin Com Blood Type Antibody Screen Crossmatch 09/05/20 09/05/20 09/05/20 05:14 12:07 12:07 WBC RBC Hgb Hct MCV MCH MCHC RDW Plt Count MPV Immature Gran % (Auto) Neut % (Auto) Lymph % (Auto) [place] % (Auto) Eos % (Auto) Baso % (Auto) Lymph # (Auto) [place] # (Auto) Eos # (Auto) Baso # (Auto) Abs Immat Gran (auto) Absolute Neuts (auto) Absolute Nucleated RBC Nucleated RBC % (auto) Smear Tech's Comments Smear Path Review PT INR APTT Sodium Potassium Chloride Carbon Dioxide Anion Gap BUN Creatinine Estim Creat Clear Calc Estimated GFR Random Glucose Lactic Acid Lactic Acid Fup @ 2Hr Calcium Phosphorus Magnesium Total Bilirubin Direct Bilirubin AST ALT Alkaline Phosphatase Ammonia 35 Troponin I High Sens B-Natriuretic Peptide 1093 H Total Protein Albumin Lipase Vitamin B12 253 Folate < 1.6 L Urine Color Urine Appearance Urine pH Ur Specific [place] Urine Protein Urine Glucose (UA) Urine Ketones Urine Blood Urine Nitrite Ur Leukocyte Esterase COVID-19 (RICK) [employer] Blood Type Antibody Screen Crossmatch 09/06/20 09/06/20 09/07/20 07:46 07:46 06:19 WBC 6.0 RBC 2.83 L Hgb 7.5 L Hct 22.3 L MCV 78.8 L MCH 26.5 L MCHC 33.6 RDW 17.7 H Plt Count 176 MPV 11.8 Immature Gran % (Auto) Neut % (Auto) Lymph % (Auto) [place] % (Auto) Eos % (Auto) Baso % (Auto) Lymph # (Auto) [place] # (Auto) Eos # (Auto) Baso # (Auto) Abs Immat Gran (auto) Absolute Neuts (auto) Absolute Nucleated RBC 0.000 Nucleated RBC % (auto) 0.0 Smear Tech's Comments Smear Path Review PT INR APTT Sodium 146 H 147 H Potassium 3.5 3.1 L Chloride 112 H 113 H Carbon Dioxide 25 24 Anion Gap 13 13 BUN 15 11 Creatinine 0.53 0.52 Estim Creat Clear Calc 67.8 75.7 Estimated GFR > 60 > 60 Random Glucose 87 109 Lactic Acid Lactic Acid Fup @ 2Hr Calcium 7.5 L 7.0 L D Phosphorus 2.3 L 1.7 L Magnesium 1.6 Total Bilirubin Direct Bilirubin AST ALT Alkaline Phosphatase Ammonia Troponin I High Sens B-Natriuretic Peptide Total Protein Albumin Lipase Vitamin B12 Folate Urine Color Urine Appearance Urine pH Ur Specific [place] Urine Protein Urine Glucose (UA) Urine Ketones Urine Blood Urine Nitrite Ur Leukocyte Esterase COVID-19 (RICK) COVID-[employer] Blood Type Antibody Screen Crossmatch 09/07/20 09/08/20 09/08/20 06:19 05:59 12:02 WBC 4.1 L RBC 2.61 L Hgb 7.0 L* Hct 20.5 L* MCV 78.5 L MCH 26.8 L MCHC 34.1 RDW 17.5 H Plt Count 136 L MPV 11.9 Immature Gran % (Auto) Neut % (Auto) Lymph % (Auto) [place] % (Auto) Eos % (Auto) Baso % (Auto) Lymph # (Auto) [place] # (Auto) Eos # (Auto) Baso # (Auto) Abs Immat Gran (auto) Absolute Neuts (auto) Absolute Nucleated RBC 0.000 Nucleated RBC % (auto) 0.0 Smear Tech's Comments Smear Path Review PT INR APTT Sodium 142 Potassium 2.8 L 3.8 D Chloride 108 Carbon Dioxide 26 Anion Gap 11 L BUN 10 Creatinine 0.51 Estim Creat Clear Calc 77.7 Estimated GFR > 60 Random Glucose 96 Lactic Acid Lactic Acid Fup @ 2Hr Calcium 6.8 L Phosphorus Magnesium Total Bilirubin Direct Bilirubin AST ALT Alkaline Phosphatase Ammonia Troponin I High Sens B-Natriuretic Peptide Total Protein Albumin Lipase Vitamin B12 Folate Urine Color Urine Appearance Urine pH Ur Specific [place] Urine Protein Urine Glucose (UA) Urine Ketones Urine Blood Urine Nitrite Ur Leukocyte Esterase COVID-19 (RICK) COVID-19 Clin Com Blood Type Antibody Screen Crossmatch Airway Mallampati Class: II TM Dist: <=3cm Neck ROM: Limited Assessment and Plan Assessment Anesthesia Assessment: Anesthesia Plan Discussed (Dicussed w HCP in detail, w fully detailed risks) and Chart Reviewed Final Anesthetic Review NPO: Yes ASA Class: IV Final Preanesthetic Review: No Changes in Pt Med Stat, Meds/Allgs Chart Reviewed, Consent Obtained/Reviewed and Anes Risks/Benef Reviewed Patient Risk: High Procedure Risk: Intermediate Anesthetic Plan Anesthetic Plan: MAC: and Agree w/ Assess. and Plan Disposition: Standard PACU and Inp. Admit - Standard Bed
--- NOTE | 2020-09-08 14:08 | P.BOP_ITS ---
Brief Operative Note Date of Service: 09/08/20 Pre-op diagnosis: failure to thrive Post-op diagnosis: same Procedure: percutaneous endoscopic gastrostomy tube placement Implants: 20FR PEG tube Surgeon: AYLIN DUMONT MD Anesthesia: MAC Angle Roll Operator: Vannesa Gutierrez Estimated blood loss (mL): 2 Pathology: none sent Condition: stable Disposition: PACU
--- NOTE | 2020-09-08 14:47 | W.PM.OPN ---
Operative Note Operative Note Date of Service: 09/08/20 Narrative: Preop diagnosis: Failure to thrive, poor p.o. intake Post up diagnosis: The same Procedure done: Percutaneous endoscopic gastrostomy tube placement Anesthesia: Monitored anesthesia care Surgeon: Lee Car MD 1st dermatology physician assistant: SUMA Gutierrez The patient is a 74-year-old female admitted because of failure to thrive and weight loss due to poor oral intake for about 2-3 months. She does have a history of dementia and Parkinson's disease. She was referred to me therefore for PEG tube placement. The daughter, Komal who was her healthcare proxy, understood the technique procedure. She was aware of the risks, benefits , benefits, and alternatives and had given consent. The patient was brought to the operating room and placed in reclining position under monitored anesthesia care on the operating room table. A surgical time-out was done. The bite block was placed. I then proceeded to insert the gastroscope through the bite block into the oropharynx. The vocal cords were visualized and the esophageal slit was seen posterior to this. The esophageal slit was intubated and the scope was gradually and gently advanced through the entire length of the esophagus to the stomach. We proceeded to distend the stomach by insufflation. We were able to examine the entire stomach mucosa and there was no evidence of any ulcers, or any bleeding or gastritis. Transillumination through the abdominal wall was clearly seen on the epigastric area just below the subcostal margin. We therefore chose this as our site for the tube placement. In addition to transillumination of the anterior stomach wall, indentation on the anterior stomach wall by pressing a finger on the abdominal wall in this area also was visualized easily. I prepped and infiltrated this area with lidocaine 1%. A large gauge needle with a plastic cannula sheath was inserted through this into the stomach lumen. This was easily seen with the endoscope. The needle was removed. The guidewire was inserted through the cannula and was caught with the a snare from endoscope. We pulled this guidewire along with the gastroscope out through the esophagus and the oral cavity. The guidewire was looped with the other end of the G-tube with the inner bolster. I then pulled the guidewire from the abdominal wall to drag the G-tube with this all the way into the stomach until this felt snug. We reinserted the endoscope into the esophagus all the way to the stomach and examined this area. We could easily see that inner bolster was in good position. Photographic documentation was done. We removed the endoscope. He also applied the external bolster on the PEG tube to make this snug on the abdominal wall. The procedure was completed. The patient tolerated the procedure well. No immediate complications were noted. There was minimal blood loss. The patient was then transferred to the recovery room with stable vital signs.
[2020-09-08 15:32] LABS: Levetiracetam Keppra 5.1 mcg/mL (12.0-46.0)
--- NOTE | 2020-09-08 16:29 | PM.EVENT ---
Event Note Date of Service: 09/08/20 Event Note: Patient underwent peg tube placement earlier this afternoon Procedure was uneventful Patient seen postop -appears to have good pain control Abdomen soft PEG site dry The external bolster should be kept snug on the abdominal wall Okay to start feeds tomorrow The rest of management as per the hospitalist service Khari perez
[2020-09-08 21:53] LABS: Glucose, Whole Blood 111 mg/dL (60-115)
--- NOTE | 2020-09-08 21:59 | P.EN_ITS ---
Event Note Date of Service: 09/08/20 Event Note: Rapid response: BIBLICAL LANGUAGES PROFESSOR was called in around 10:00 p.m.. RN mentioned that patient was briefly shaky and moaning/pending. RN does not know the patient's baseline, mentions that she is seeing the patient for the 1st time tonight. As per the notes patient had a question of seizures prior to coming to the hospital. Initially admitted to the ICU for sepsis and subsequently transferred to the floors. Patient has history of Parkinson's-medications on hold secondary to question rigidity from ICU. Pending Neurology evaluation. Brief shakiness episode as mentioned above: Question for seizure. We will give the patient a dose of Keppra. Neurology consultation is pending. EEG was negative. Will obtain a CT head and basic labs. EKG shows AFib. Monitor on telemetry. Patient had NSTEMI. Will have the primary team follow-up with Cardiology.
[2020-09-08] MEDS: levETIRAcetam in NaCl (iso-os) 500 MG/100 ML PIGGYBACK 400 MG IV (22:20)
[2020-09-08 22:52] LABS: Anion Gap 17 (12-20); Blood Urea Nitrogen 10 mg/dL (9-16); Calcium 7.1 mg/dL (8.4-10.2); Carbon Dioxide 20 mmol/L (22-29); Chloride 104 mmol/L (96-108); Estimated Glomerular Filt Rate > 60; Glucose Random 122 mg/dL (60-115); Lactic Acid 7.3 mmol/L (0.5-2.0); Potassium 2.7 mmol/L (3.3-5.1); Sodium 138 mmol/L (135-145)
[2020-09-08] MEDS: KCl 40 mEq in 0.9 % Sodium Chl 40 MEQ/1,000 ML IV.SOLN 80 MEQ IVCONT (23:44)
[2020-09-09] VITALS (9 sets, daily range): BP systolic 82–143; BP diastolic 54–74; PULSE 87–103; RESP 16–20; TEMP 35.9–36.7; O2SAT 95–100; BMI 26.6
[2020-09-09 00:25] LABS: Reflex Lactate? Lactic Acid Added
[2020-09-09 02:47] LABS: Reflex Lactate? 2 Y
[2020-09-09 03:11] LABS: Hematocrit 18.7 % (37-47); PLT ABN DIST 1; PLT CLUMP 1
[2020-09-09 03:12] LABS: Mean Corpuscular HGB Conc 33.7 g/dl (31.0-35.0); Mean Corpuscular Hemoglobin 26.1 pg (27.0-33.0); Mean Corpuscular Volume 77.6 fL (80-98); Platelet Count 124 X10*3/uL (160-400); Red Blood Count 2.41 X10*6/uL (4.20-5.50); Red Cell Distribution Width 17.4 % (11.0-16.0); White Blood Count 2.1 X10*3/uL (4.8-10.8)
[2020-09-09 03:15] LABS: Hemoglobin 6.3 g/dl (12.0-16.0)
[2020-09-09 03:41] LABS: Anion Gap 13 (12-20); Blood Urea Nitrogen 9 mg/dL (9-16); Calcium 6.6 mg/dL (8.4-10.2); Carbon Dioxide 23 mmol/L (22-29); Chloride 107 mmol/L (96-108); Creatinine Clr Calc Pharmacy 72.1; Estimated Glomerular Filt Rate > 60; Glucose Random 93 mg/dL (60-115); Sodium 140 mmol/L (135-145)
[2020-09-09 03:43] LABS: ~Lactic Acid-LAB USE ONLY 3.4 mmol/L (0.5-2.0)
--- NOTE | 2020-09-09 07:38 | PM.EVENT ---
Documented by User: Vannesa Gutierrez PA-C 09/09/20 07:40 Event Note Date of Service: 09/09/20 Event Note: POD #1 S/P PEG TUBE Had RR called overnight due to ?seizure activity. No issues post op. ABd exam benign- soft, NTND. PEG tube in place. Can begin tube feedings as per hospitalist service. Documented by User: Lee Car MD 09/09/20 08:18 Event Note Date of Service: 09/09/20 Event Note: pt seen and examined ?seizure last night - pt has hx of seizure episodes mental status the same abd soft PEG in place ok to start feeds keep external bolster snug on abdominal wall
[2020-09-09] MEDS: levETIRAcetam in NaCl (iso-os) 500 MG/100 ML PIGGYBACK 400 MG IV (09:35)
[2020-09-09] MEDS: Bacitracin Oint 14 GM TUBE 1 APPL TOPICAL ×3 (09:35→21:21)
--- NOTE | 2020-09-09 10:58 | HO.POSTANES ---
Post Anesthesia Evaluation Post Anesthesia Evaluation Vital Signs: Vital Signs Temp Pulse Resp BP Pulse Ox 09/09/20 08:00 98.0 F 103 H 17 136/73 100 09/09/20 03:41 97.8 F 100 20 143/72 H 96 09/08/20 23:57 98.0 F 104 H 20 97/63 99 Anesthesia: Monitored Mental Status: Awake (? seizure episode last night) Pain Control: Satisfactory (Seems comfortable) Nausea/Vomiting: None Hydration: Adequate Anesthesia-Related Issues: No Anes. Related Issues
--- NOTE | 2020-09-09 11:42 | MHC.SLORD ---
Per review of MD notes, patient had PEG tube placed yesterday and will begin feedings today. There was question of seizure activity last night. Head CT was negative for acute pathologies. HUMAN RESOURCE INTERN will continue to follow. Name: Shell Leone Date of : 1945 Age: 74 Date of Registration: 09/03/20 Speech Language Pathology Order Status:
--- NOTE | 2020-09-09 11:55 | P.PNIM_ITS ---
Subjective Subjective Date of Service: 09/09/20 Interval History: The patient was seen and evaluated this morning Laying in bed, looks comfortable, answers with yes and no but not opening eyes Had an overnight incident of suspected seizure activity and started on IV Keppra Denies any pain No reported other overnight events. Systemic review: No fever, chills but weakness No chest pain, palpitation No shortness of breath or coughing Physical Exam Vital Signs: Vital Signs: Last Vital Signs Temp 97.6 F 09/09/20 11:43 Pulse 100 09/09/20 11:43 Resp 20 09/09/20 11:43 BP 116/74 09/09/20 11:43 Pulse Ox 99 09/09/20 11:43 Body Mass Index 26.6 Const: Other: Constitutional : Alert with stimulation, confused, not in distress Neck : Normal inspection, Supple Cardiovascular : RRR, S1 S2, no lower extremity edema Respiratory : fair bilateral air entry, no crackles, wheezes or rhonchi Gastrointestinal: soft, lax, Normal bowel sounds, Non tender Skin : Warm/Dry, No rash Neurological : Alert & confusion, No focal deficit Objective Data Current Medications Generic Name Dose Route Start Last Admin Trade Name Freq PRN Reason Stop Dose Admin Artificial Tears 1 drop 09/09/20 13:00 Artificial Tears 15 Ml Drops EYE-BOTH QID [facility] Atorvastatin Calcium 40 mg 09/10/20 09:00 Atorvastatin Calcium 40 Mg Tablet G-TUBE DAILY [facility] Bacitracin 1 appl 09/04/20 00:10 09/09/20 09:35 Bacitracin Oint 14 Gm Tube TOPICAL 1 appl TID [facility] Administration Protocol Carbidopa/Levodopa 1 tab 09/09/20 14:00 Carbidopa/Levodopa Cr 50/200 Tablet.Er PO 5XD [facility] Escitalopram Oxalate 10 mg 09/10/20 09:00 Escitalopram Oxalate 10 Mg Tablet G-TUBE DAILY [facility] Levetiracetam 125 mg 09/09/20 11:15 Levetiracetam 250 Mg Tablet G-TUBE BID [facility] Metoprolol Tartrate 25 mg 09/09/20 11:15 Metoprolol Tartrate 25 Mg Tablet G-TUBE BID [facility] Protocol Morphine Sulfate 2 mg 09/08/20 15:34 Morphine Sulfate 2 Mg/Ml Cartridge IVPUSH Q3H PRN Pain, Severe (Pain Scale 7-10) Omeprazole 20 mg 09/09/20 11:45 Omeprazole 20 Mg/10 Ml Susp.Recon G-TUBE BID@[id number] [facility] Pharmacy Consult 1 each 09/03/20 18:02 Consult Rx Perform Med Rec MISCELLANE ONCE PRN Consult order Promethazine HCl 12.5 mg 09/09/20 11:12 Promethazine Hcl 25 Mg Tablet G-TUBE DAILY PRN Nausea Labs CBC & Chem 7: 09/09/20 03:04 09/09/20 03:04 Microbiology Microbiology Results: Microbiology 09/03/20 16:52 Blood - Arterial Blood Culture - Final No growth after 5 days. 09/03/20 16:49 Blood - Arterial Blood Culture - Final No growth after 5 days. Assessment and Plan (1) FTT (failure to thrive) in adult: Status: Acute (2) Seizure disorder: Status: Acute (3) Abrasion of buttock: Status: Acute (4) Non-ST elevation (NSTEMI) myocardial infarction: Status: Acute (5) Altered mental status: Status: Acute (6) Dementia: Status: Acute (7) Parkinsonism: Status: Acute (8) Lactic acidosis: Status: Acute (9) Anemia: Status: Acute (10) Acute hypernatremia: Status: Acute (11) Acute hypokalemia: Status: Acute Assessment and Plan: This is a 74-year-old female with a past medical history of hypertension, hyperlipidemia, Parkinson's disease, paroxysmal AFib not on blood thinners for unknown reason, status post pacemaker, dysphagia, pulmonary nodule, latent TB wh o according to the history and physical had new onset seizures and was started on Keppra about 3 weeks ago. She was brought in from the [facility] for generalized weakness and failure to thrive, weight loss and reduced oral intake. She was noted to be profoundly hypotensive in the emergency room despite aggressive fluid resuscitation. She was subsequently admitted to the intensive care unit which she was treated with further fluid resuscitation and vasopressors. Ultimately she was transferred out on the evening of 09/05/2020. 1. Acute Encephalopathy multifactorial baseline unclear but she is responsive to vocal stimuli only the 2. HyperNa Improved, DC IV fluids foilow BMP 3. NSTEMI type 2 HS trop-I downtrended 4. Severe Anemia Hb to 6.5, likely dilutional Jehova's witness -- refuse to transfuse 5. Parkinson's / seizures Reported 2nd episode overnight suspicious for seizure Continue Keppra a Restart carbidopa levodopa neurology evaluation appreciated, no need for antiepileptic medications 6. Dysphagia failed swallow evaluation PEG tube in place To start tube feeding today General surgery input appreciated 7. Hypokalemia K of 3 follow BMP Full Code DVT pptx, mechanical due to severe anemia
[2020-09-09] MEDS: Metoprolol Tartrate 25 MG TABLET G-TUBE ×2 (13:06→21:08)
--- NOTE | 2020-09-09 13:11 | MHC.CM.PN ---
Addendum entered by Елена Schuler 09/09/20 14:59: HCP WAS LOCATED IN PAPER CHART Original Note: PLAN IS TO START TUBE FEEDS TODAY AND DC TO SNF TOMORROW. HCP UPLOADED TO FACILITIES. DAUGHTER LORELEI ([phone]) IS NOT THE HCP. CASE MANAGEMENT TO FOLLOW UP WITH PLAN FOR DC
[2020-09-09] MEDS: Artificial Tears 15 ML DROPS 1 DROP EYE-BOTH ×3 (13:40→21:21)
[2020-09-09] MEDS: Carbidopa/Levodopa 25/100 TABLET 2 TAB G-TUBE ×3 (13:40→21:08)
--- NOTE | 2020-09-09 14:37 | MHC.CLN ---
F/U TF PLACED AND STARTED TODAY JEVITY AT MAX GOAL RATE 65CC/HR WITH 120CC FREE WATER FLUSHES Q SHIFT TO PROVIDE 1654KCALS (31KCALS/KG), 65G PROTEIN (1.2G/KG), 1663CC TOTAL WATER FROM FORMULA AND FLUSHES (31CC/KG) START TF JEVITY AT 20CC/HR AND INCREASE BY 10CC Q 4HRS UNTIL MAX GOAL ACHIEVED MONITOR TOLERANCE, RESIDUALS AND LYTES
--- NOTE | 2020-09-09 15:39 | MHC.CM.PN ---
FIDEL RIOS IS NOW ABLE TO OFFER AND IS GOING FOR AUTH. DAUGHTER LORELEI MADE AWARE THAT HCP COPY DOES NOT INDICATE HER AN AGENT. CM AWAITING CALL BACK FROM LORELEI ([phone])
--- NOTE | 2020-09-09 16:35 | MHC.CM.PN ---
ALLYSSA'S DAUGHTER RETURNED CALL TO THIS CALL CENTER OPERATIONS MANAGER. SHE REPORTS THAT SHE IS THE ACTUAL HCP, AND SHE HAS SENT A COPY TO [facility] [place]ICATING SO. COPY WILL BE PLACED IN CHART.
[2020-09-09] MEDS: 0.9 % Sodium Chloride 500 ML IV (17:21)
[2020-09-09] MEDS: levETIRAcetam 250 MG TABLET 125 MG G-TUBE (21:08)
[2020-09-09 22:56] LABS: Lactic Acid 1.6 mmol/L (0.5-2.0)
[2020-09-10 03:51] VITALS: BP 105/55; PULSE 112; RESP 26; TEMP 36.6; O2SAT 97
[2020-09-10] MEDS: Carbidopa/Levodopa 25/100 TABLET 2 TAB G-TUBE ×3 (05:44→13:29)
[2020-09-10 06:21] VITALS: BMI 26.1
[2020-09-10 07:17] LABS: Mean Corpuscular HGB Conc 34.3 g/dl (31.0-35.0); Mean Corpuscular Hemoglobin 26.7 pg (27.0-33.0); Mean Corpuscular Volume 77.9 fL (80-98); Platelet Count 140 X10*3/uL (160-400); Red Blood Count 2.62 X10*6/uL (4.20-5.50); Red Cell Distribution Width 17.6 % (11.0-16.0)
[2020-09-10 07:23] LABS: Anion Gap 11 (12-20); Blood Urea Nitrogen 17 mg/dL (9-16); Calcium 6.9 mg/dL (8.4-10.2); Carbon Dioxide 24 mmol/L (22-29); Chloride 109 mmol/L (96-108); Creatinine Clr Calc Pharmacy 67.9; Estimated Glomerular Filt Rate > 60; Glucose Random 141 mg/dL (60-115); Potassium 3.3 mmol/L (3.3-5.1); Sodium 141 mmol/L (135-145)
[2020-09-10 07:59] VITALS: BP 149/74; PULSE 98; RESP 20; TEMP 36.2; O2SAT 98
[2020-09-10 08:00] LABS: Hematocrit 20.4 % (37-47)
--- NOTE | 2020-09-10 08:08 | PM.PNGS ---
Subjective Subjective Date of Service: 09/10/20 Interval history: no events reported seems to be tolerating tube feeds Physical Exam Vital Signs: Vital Signs: Last Vital Signs Temp 98 F 09/10/20 03:51 Pulse 112 H 09/10/20 03:51 Resp 26 H 09/10/20 03:51 BP 105/55 L 09/10/20 03:51 Pulse Ox 97 09/10/20 03:51 Body Mass Index 26.1 Chemistry 09/08/20 09/08/20 09/08/20 05:59 12:02 22:19 Sodium 142 138 Potassium 2.8 L 3.8 D 2.7 L D Carbon Dioxide 26 20 L BUN 10 10 Creatinine 0.51 0.60 Calcium 6.8 L 7.1 L 09/09/20 09/10/20 03:04 06:11 Sodium 140 141 Potassium 3.0 L 3.3 Carbon Dioxide 23 24 BUN 9 17 H D Creatinine 0.55 0.60 Calcium 6.6 L D 6.9 L Hematology 09/09/20 09/10/20 03:04 06:11 WBC 2.1 L 1.0 L Hgb 6.3 L* 7.0 L* Plt Count 124 L 140 L Const: Other: mental status as baseline General: no acute distress GI: Other: PEG in place, site clean Palpation (GI): Soft to palpation, not firm, nontender and no guarding Progress Note: A&P Assessment and plan (1) Parkinsonism: Status: Acute Assessment and Plan: S/P PEG placement abd remains benign PEG functioning pt tolerating tube feeds so far care as per Medical service Fall Risk Details Current Medications: Current Medications Generic Name Dose Route Start Last Admin Trade Name Freq PRN Reason Stop Dose Admin Artificial Tears 1 drop 09/09/20 13:00 09/09/20 21:21 Artificial Tears 15 Ml Drops EYE-BOTH 1 drop QID [facility] Administration Atorvastatin Calcium 40 mg 09/10/20 09:00 Atorvastatin Calcium 40 Mg Tablet G-TUBE DAILY [facility] Bacitracin 1 appl 09/04/20 00:10 09/09/20 21:21 Bacitracin Oint 14 Gm Tube TOPICAL 1 appl TID [facility] Administration Protocol Carbidopa/Levodopa 2 tab 09/09/20 14:00 09/10/20 05:44 Carbidopa/Levodopa 25/100 Tablet G-TUBE 2 tab 5XD [facility] Administration Escitalopram Oxalate 10 mg 09/10/20 09:00 Escitalopram Oxalate 10 Mg Tablet G-TUBE DAILY [facility] Levetiracetam 125 mg 09/09/20 21:00 09/09/20 21:08 Levetiracetam 250 Mg Tablet G-TUBE 125 mg BID [facility] Administration Metoprolol Tartrate 25 mg 09/09/20 11:15 09/09/20 21:08 Metoprolol Tartrate 25 Mg Tablet G-TUBE 25 mg BID [facility] Administration Protocol Morphine Sulfate 2 mg 09/08/20 15:34 Morphine Sulfate 2 Mg/Ml Cartridge IVPUSH Q3H PRN Pain, Severe (Pain Scale 7-10) Omeprazole 20 mg 09/09/20 11:45 09/10/20 05:44 Omeprazole 20 Mg/10 Ml Susp.Recon G-TUBE 20 mg BID@[id number],3940 [facility] Administration Pharmacy Consult 1 each 09/03/20 18:02 Consult Rx Perform Med Rec MISCELLANE ONCE PRN Consult order Promethazine HCl 12.5 mg 09/09/20 11:12 Promethazine Hcl 25 Mg Tablet G-TUBE DAILY PRN Nausea Time Spent With Patient Time: Total time spent is greater than 50% in coordination of care (as documented) at patient's floor/unit and/or counseling patient: Time with patient: less than 15 minutes
[2020-09-10] MEDS: Metoprolol Tartrate 25 MG TABLET G-TUBE (08:22)
[2020-09-10] MEDS: Escitalopram Oxalate 10 MG TABLET G-TUBE (08:23)
[2020-09-10] MEDS: Atorvastatin Calcium 40 MG TABLET G-TUBE (08:23)
[2020-09-10] MEDS: levETIRAcetam 250 MG TABLET 125 MG G-TUBE (08:24)
[2020-09-10] MEDS: Bacitracin Oint 14 GM TUBE 1 APPL TOPICAL ×2 (08:24→13:31)
[2020-09-10] MEDS: Artificial Tears 15 ML DROPS 1 DROP EYE-BOTH ×2 (08:25→13:31)
--- NOTE | 2020-09-10 10:56 | P.PNIM_ITS ---
Subjective Subjective Date of Service: 09/10/20 Interval History: The patient was seen and evaluated this morning Laying in bed, looks comfortable, answers with yes sometimes but not opening eyes no reported abnormal movements tolerating tube feeds No reported other overnight events. Systemic review: No fever, chills but weakness No compalin of chest pain, palpitation No shortness of breath or coughing Physical Exam Vital Signs: Vital Signs: Last Vital Signs Temp 97.1 F 09/10/20 07:59 Pulse 98 09/10/20 07:59 Resp 20 09/10/20 07:59 BP 149/74 H 09/10/20 07:59 Pulse Ox 98 09/10/20 07:59 Body Mass Index 26.1 Const: Other: Constitutional : open eyes with stimulation, Altered confused, not in distress Neck : Normal inspection, Supple Cardiovascular : RRR, S1 S2, no lower extremity edema Respiratory : fair bilateral air entry, no crackles, wheezes or rhonchi Gastrointestinal: soft, lax, Normal bowel sounds, Non tender Skin : Warm/Dry, No rash Neurological : Altered mentation, no interactive, No focal deficit Objective Data Current Medications Generic Name Dose Route Start Last Admin Trade Name Freq PRN Reason Stop Dose Admin Artificial Tears 1 drop 09/09/20 13:00 09/10/20 08:25 Artificial Tears 15 Ml Drops EYE-BOTH 1 drop QID [facility] Administration Atorvastatin Calcium 40 mg 09/10/20 09:00 09/10/20 08:23 Atorvastatin Calcium 40 Mg Tablet G-TUBE 40 mg DAILY [facility] Administration Bacitracin 1 appl 09/04/20 00:10 09/10/20 08:24 Bacitracin Oint 14 Gm Tube TOPICAL 1 appl TID [facility] Administration Protocol Carbidopa/Levodopa 2 tab 09/09/20 14:00 09/10/20 10:53 Carbidopa/Levodopa 25/100 Tablet G-TUBE 2 tab 5XD [facility] Administration Escitalopram Oxalate 10 mg 09/10/20 09:00 09/10/20 08:23 Escitalopram Oxalate 10 Mg Tablet G-TUBE 10 mg DAILY [facility] Administration Levetiracetam 125 mg 09/09/20 21:00 09/10/20 08:24 Levetiracetam 250 Mg Tablet G-TUBE 125 mg BID [facility] Administration Metoprolol Tartrate 25 mg 09/09/20 11:15 02/19/21 08:22 Metoprolol Tartrate 25 Mg Tablet G-TUBE 25 mg BID [facility] Administration Protocol Morphine Sulfate 2 mg 09/08/20 15:34 Morphine Sulfate 2 Mg/Ml Cartridge IVPUSH Q3H PRN Pain, Severe (Pain Scale 7-10) Omeprazole 20 mg 09/09/20 11:45 09/10/20 05:44 Omeprazole 20 Mg/10 Ml Susp.Recon G-TUBE 20 mg BID@0630,1630 [facility] Administration Pharmacy Consult 1 each 09/03/20 18:02 Consult Rx Perform Med Rec MISCELLANE ONCE PRN Consult order Promethazine HCl 12.5 mg 09/09/20 11:12 Promethazine Hcl 25 Mg Tablet G-TUBE DAILY PRN Nausea Labs CBC & Chem 7: 09/10/20 06:11 09/10/20 06:11 Microbiology Microbiology Results: Microbiology 09/03/20 16:52 Blood - Arterial Blood Culture - Final No growth after 5 days. 09/03/20 16:49 Blood - Arterial Blood Culture - Final No growth after 5 days. Assessment and Plan (1) FTT (failure to thrive) in adult: Status: Acute (2) Seizure disorder: Status: Acute (3) Abrasion of buttock: Status: Acute (4) Non-ST elevation (NSTEMI) myocardial infarction: Status: Acute (5) Altered mental status: Status: Acute (6) Dementia: Status: Acute (7) Parkinsonism: Status: Acute (8) Lactic acidosis: Status: Acute (9) Anemia: Status: Acute (10) Acute hypernatremia: Status: Acute (11) Acute hypokalemia: Status: Acute Assessment and Plan: This is a 74-year-old female with a past medical history of hypertension, hyperlipidemia, Parkinson's disease, paroxysmal AFib not on blood thinners for unknown reason, status post pacemaker, dysphagia, pulmonary nodule, latent TB who according to the history and physical had new onset seizures and was started on Keppra about 3 weeks ago. She was brought in from the correction for generalized weakness and failure to thrive, weight loss and reduced oral intake. She was noted to be profoundly hypotensive in the emergency room despite aggressive fluid resuscitation. She was subsequently admitted to the intensive care unit which she was treated with further fluid resuscitation and vasopressors. Ultimately she was transferred out on the evening of 09/05/2020. 1. Acute Encephalopathy multifactorial baseline unclear but she is responsive to vocal stimuli only Started tube feeds 2. HyperNa Improved, DC IV fluids foilow BMP 3. NSTEMI type 2 HS trop-I downtrended 4. Severe Anemia Hb to 7, stable Jehova's witness -- refuse to transfuse 5. Parkinson's / seizures Reported 2nd episode overnight suspicious for seizure Continue Keppra a Restart carbidopa levodopa neurology evaluation appreciated, no need for antiepileptic medications 6. Dysphagia failed swallow evaluation PEG tube in place started tube feeding, good tolerance Head of bed elevated 45 General surgery input appreciated 7. Hypokalemia K of 3 follow BMP Full Code DVT pptx, mechanical due to severe anemia
--- NOTE | 2020-09-10 11:00 | W.MHC.ACPN ---
Advanced Care Planning Note Advanced Care Planning Note Discussed with: family member(s) Time spent (in minutes): 20 Narrative: I had a chance to speak with the patient daughter and HCP the phone to discuss current hospital stay and advanced directive. The patient was admitted to the hospital for evaluation of failure to thrive and altered mentation. She was the evaluated and treating accordingly with no significant improvement as she failed swallowing evaluation the and kept NPO. A PEG tube was placed for feeding and she was able to tolerate feeding well. She remains bedridden, altered mentation, not interactive or waking up. Discussed with the daughter goals of care as the patient remains full code. I explained to her what resuscitation process a is and she does not want her mother to go through that. We agreed on changing her status to DNR DNI for the time being and consider comfort measures at home with hospice team as the daughter would like to take care of her mother. A MOLST form was filled and code status was changed to DNR. Hospice case referral was done by rehabilitation case coordinator, to be followed. Problems Discussed (1) FTT (failure to thrive) in adult: (2) Seizure disorder: (3) Abrasion of buttock: (4) Non-ST elevation (NSTEMI) myocardial infarction: (5) Altered mental status: (6) Dementia: (7) Parkinsonism: (8) Lactic acidosis: (9) Anemia: (10) Acute hypernatremia: (11) Acute hypokalemia:
--- NOTE | 2020-09-10 11:09 | MHC.CM.PN ---
HCP NAMING DAUGHTER AGUSTIN ([phone]) MARIE RODAS ([phone]) SECONDARY AGENT IS NOW IN CHART. HCP UPLOADED TO [facility]
[2020-09-10 12:00] VITALS: BP 99/55; PULSE 97; RESP 24; TEMP 36.2; O2SAT 95
--- NOTE | 2020-09-10 13:11 | MHC.CM.PN ---
PERMISSION GIVEN FROM [facility] DEGREE CLERK TO ALLOW PATIENT'S DAUGHTER, LORELEI ([phone])TO VISIT. RN ANSWERING SERVICE TELEPHONE OPERATOR, FRONT LOBBY DESK, UNIT, RN, AND HOSPITALIST AWARE.
--- NOTE | 2020-09-10 14:33 | MHC.CLN ---
F/U PT TO D/C TO FACILITY PT WILL RECEIVE JEVITY 1.2 AT FACILITY RECOMMEND JEVITY 1.2 AT MAX GOAL RATE 55CC/HR CONTINUOUS WITH 240CC FREE WATER FLUSHES Q SHIFT TO PROVIDE 1584KCALS (29KCALS/KG), 73G PROTEIN (1.4G/KG), 1785CC TOTAL WATER FROM FORMULA AND FLUSHES (33CC/HR) MONITOR TOLERANCE, RESIDUALS AND LYTES
--- NOTE | 2020-09-10 15:15 | MHC.CM.PN ---
COMPLETED MOLST NOW IN CHART. DAUGHTER/HCP HAS ORIGINAL. CURRENTLY AWAITING SWAB. PLAN IS FOR 1800 TRANSPORT TO [facility] [place] [facility]. IMM 09/09 IN CHART. RN AND UNIT AWARE OF PLAN.
--- NOTE | 2020-09-10 15:22 | P.DS_ITS ---
DS: Providers Provider Date of Service: 09/10/20 Date of admission: 09/03/20 21:57 Primary care physician: Garry Tijerina MD Consults: 09/04/20 14:26 Consult to Wound Care Provider Routine Consulting Provider: Kathrine Aragon Reason for consultation: stage 2 09/06/20 07:25 Consult to Neurology Routine Consulting Provider: [facility] Reason for consultation: seizures, rigidity 09/07/20 11:00 Consult to General Surgery Routine Consulting Provider: Lee Car Reason for consultation: Evaluation for G-tube placement for feeding. DS: Diagnosis Discharge Diagnosis (1) FTT (failure to thrive) in adult: Status: Acute (2) Seizure disorder: Status: Acute (3) Abrasion of buttock: Status: Acute (4) Non-ST elevation (NSTEMI) myocardial infarction: Status: Acute (5) Altered mental status: Status: Acute (6) Dementia: Status: Acute (7) Parkinsonism: Status: Acute (8) Lactic acidosis: Status: Acute (9) Anemia: Status: Acute (10) Acute hypernatremia: Status: Acute (11) Acute hypokalemia: Status: Acute DS: Medications Discharge Medications Home Medications: Home Medications Medication Instructions Recorded Confirmed aspirin 81 mg PO DAILY 09/03/20 09/03/20 atorvastatin 40 mg PO DAILY 09/03/20 09/03/20 carbidopa-levodopa 1 tab PO 5XD 09/03/20 09/03/20 levetiracetam 125 mg PO BID 09/03/20 09/03/20 metoprolol tartrate 25 mg PO BID 09/03/20 09/03/20 mirtazapine [Remeron SolTab] 15 mg PO BEDTIME 09/03/20 09/03/20 polyvinyl alcohol 1 drp OPHTHALMIC (EYE) QID 09/03/20 09/03/20 promethazine 12.5 mg PO DAILY PRN 09/03/20 09/03/20 promethazine 25 mg PO 0700,1100,1600 09/03/20 09/03/20 Previous Rx's Medication Instructions Recorded isosorbide mononitrate 30 mg 30 mg PO DAILY #30 tab 05/26/20 tablet,extended release 24 hr polyethylene glycol 3350 17 17 g PO DAILY #238 g 11/04/20 gram/dose oral powder ropinirole 0.5 mg tablet 0.5 mg PO TID #90 tab 05/26/20 sotalol 80 mg tablet 80 mg PO BID 30 Days #60 tab 05/26/20 DS: Summary Hospital Course Hospital Course: Admission note HPI Patient is a 74-year-old female with a past medical history significant for HTN, HLD, Parkinson disease, paroxysmal a-fib not on blood thinners, s/p pacemaker, dysphagia, pulmonary nodules and latent TB who also who had new onset seizures and was started on Keppra approximately 3 weeks ago was brought in by ambulance from her longterm for generalized weakness and failure to thrive, weight loss and reduced p.o. intake. Her family has been in discussions with the longterm to please the feeding tube. Patient was a poor historian despite an interpretor being present, unable to answer questions. History was provided by her longterm. While in the emergency department, labs were notable for hypernatremia 152, hypokalemia at 2.6, lactic acid 2.3, BUN 47 and Cr 1.07. Vital signs were stable sans for the BP which was in the 80-90's systolic with a MAP 50-60's. Troponin was elevated at 1032 and EKG had diffuse T-wave inversions in V2-V6 but according to Dr. Contreras, this is all old. His recommendation was to follow serial troponin. In the ER, the patient was given 2 L normal saline with no response in the blood pressure. Dr Adames was contacted, advised to give 1L of 20mgK in D5, recheck lytes in an hour. Upon my exam, patient was still borderline hypotensive despite fluid resuscitation, urine output was negligible. I then placed a central line so we could give the patient pressors and more potassium. Advised ED to give albumin as well. Will bring the patient to the ICU for monitoring and pressors. Hospital course The patient was admitted to ICU for profound hypotension requiring fluid resuscitation and pressors with good response. Her mental status was altered and she failed swallowing evaluation on multiple occasions. She was noted to be friable and deconditioned. A PEG tube was placed for feeding and tube feed were tolerated. Discussion about goals of care with her HCP resulted in changing her status to DNR DNI with hospice team involved. The daughter wanted her mother to go back home but it was an achievable with hospice with keeping the feeding. Decision to discharge her to nursing facility for hospice measures and possible transfer back to home after that. Time Spent with Patient Time attestation: Total time spent providing and/or coordinating discharge services: Discharge coordination time: Greater than 30 minutes Physical Exam Vital Signs: Vital Signs: Last Vital Signs Temp 97.2 F 09/10/20 12:00 Pulse 97 09/10/20 12:00 Resp 24 H 09/10/20 12:00 BP 99/55 L 09/10/20 12:00 Pulse Ox 95 09/10/20 12:00 Body Mass Index 26.1 Const: Other: Constitutional : open eyes with stimulation, Altered confused, nonverbal, not in distress Neck : Normal inspection, Supple Cardiovascular : RRR, S1 S2, no lower extremity edema Respiratory : fair bilateral air entry, no crackles, wheezes or rhonchi Gastrointestinal: soft, lax, Normal bowel sounds, Non tender Skin : Warm/Dry, No rash Neurological : Altered mentation, no interactive, No focal deficit DS: Data Data Completed and Pending Labs on day of discharge: Laboratory Results - last 24 hr 09/09/20 09/10/20 09/10/20 22:33 06:11 06:11 WBC 1.0 L RBC 2.62 L Hgb 7.0 L* Hct 20.4 L* MCV 77.9 L MCH 26.7 L MCHC 34.3 RDW 17.6 H Plt Count 140 L MPV Not Reportable Absolute Nucleated RBC 0.000 Nucleated RBC % (auto) 0.0 Sodium 141 Potassium 3.3 Chloride 109 H Carbon Dioxide 24 Anion Gap 11 L BUN 17 H D Creatinine 0.60 Estim Creat Clear Calc 67.9 Estimated GFR > 60 Random Glucose 141 H D Lactic Acid 1.6 Calcium 6.9 L Discharge Plan Discharge Patient Disposition: Hospice - Medical Facility Referrals: Garry Sosa MD [Primary Care Provider] - Discharge Medications: Continued atorvastatin 40 mg Tablet 40 mg PO DAILY RF: 0 promethazine 12.5 mg Tablet 12.5 mg PO DAILY PRN (Reason: Nausea) RF: 0 aspirin 81 mg Tablet,Delayed Release (Dr/Ec) 81 mg PO DAILY RF: 0 polyvinyl alcohol 1.4 % Drops 1 drp OPHTHALMIC (EYE) QID RF: 0 carbidopa-levodopa 50-200 mg Tablet Extended Release 1 tab PO 5XD RF: 0 levetiracetam 250 mg Tablet 125 mg PO BID RF: 0 metoprolol tartrate 25 mg tablet 25 mg PO BID RF: 0 promethazine 12.5 mg Tablet 25 mg PO 0700,1100,1600 RF: 0 mirtazapine [Remeron SolTab] 15 mg Tablet,Disintegrating 15 mg PO BEDTIME RF: 0 Discontinued omeprazole 20 mg Capsule,Delayed Release(Dr/Ec) 20 mg PO BID RF: 0 sucralfate 100 mg/mL Suspension 10 ml PO Q6H RF: 0 escitalopram oxalate 10 mg Tablet 10 mg PO DAILY RF: 0 tramadol 50 mg Tablet 25 mg PO Q4H PRN (Reason: Pain (Scale Score 4-6)) RF: 0 clonazepam 0.25 mg tablet,disintegrating 0.25 mg PO DAILY Qty: 30 RF: 0 docusate sodium [Colace] 100 mg capsule 100 mg PO DAILY Qty: 30 RF: 0 magnesium hydroxide [Milk of Magnesia] 400 mg/5 mL suspension 5 ml PO DAILY PRN (Reason: stomach upset) Qty: 3000 RF: 0 senna 8.6 mg capsule 8.6 mg PO BEDTIME PRN (Reason: constipation) Qty: 30 RF: 0 Discharge Orders: Discharge Order (Routine); Ordered 09/10/20 Ordered By: João Rivero Diet: other Activity on Discharge: DIRECTOR ALUM[employer] RELATIONS Stand Alone Forms: Patient Portal Discharge page Care Plan Goals: Read below Health Concerns: Read below Plan of Treatment: You were admitted to the hospital for treatment of failure to thrive and altered mentation. A PEG tube was placed and feeding was started with good tolerance. Discussion about goals of care and decision to do hospice care.
[2020-09-10 15:31] VITALS: BP 62/37; PULSE 91; RESP 16; TEMP 36.3; O2SAT 97
[2020-09-10 15:55] LABS: COVID-19 Test Negative (Negative); IDNOW Serial# 9DD0AD1C
[2020-09-10] MEDS: 0.9 % Sodium Chloride 500 ML IV (16:31)
== END 2020-09-10 18:24 | disposition skilled nursing facility (03) | DRG 281 ==
LOC: HO.ED 18:47 → HO.ICU 22:29 → HO.S3 09-05 22:04
PROVIDERS: Family Medicine; Hospitalist; Physician Assistant; Surgery; Admitting Provider Internal Medicine Cardiovascular Disease; Emergency Provider Emergency Medicine; PCP Internal Medicine; Visit Provider Student in an Organized Health Care Education/Training Program
PROC: 0DH63UZ Insertion of Feeding Device into Stomach, Percutaneous Approach (ICD-10-PCS; CPT 43246; principal; 2020-09-08 12:30)
DX: I95.9 Hypotension, unspecified (principal); I21.4 Non-ST elevation (NSTEMI) myocardial infarction; E87.0 Hyperosmolality and hypernatremia; E86.0 Dehydration; F41.9 Anxiety disorder, unspecified; F32.9 Major depressive disorder, single episode, unspecified; F02.80 Dementia in other diseases classified elsewhere, unspecified severity, without behavioral disturbance, psychotic disturbance, mood disturbance, and anxiety; Z95.0 Presence of cardiac pacemaker; I48.0 Paroxysmal atrial fibrillation; G40.909 Epilepsy, unspecified, not intractable, without status epilepticus; R13.10 Dysphagia, unspecified; R62.7 Adult failure to thrive; Z68.26 Body mass index [BMI] 26.0-26.9, adult; Z20.822 Contact with and (suspected) exposure to COVID-19; E78.5 Hyperlipidemia, unspecified; Z53.1 Procedure and treatment not carried out because of patient's decision for reasons of belief and group pressure; G20 Parkinson's disease; Z88.0 Allergy status to penicillin; Z79.899 Other long term (current) drug therapy; Z66 Do not resuscitate
CPT/HCPCS: 36415; 70450; 71045; 80048; 80053; 80076; 80177; 81003; 82040; 82140; 82607; 82746; 82947; 83605; 83690; 83735; 83880; 84100; 84132; 84484; 85025; 85027; 85060; 85610; 85730; 86850; 86900; 86901; 86923; 87040; 87635; 93005; 93971; 95816; 96361; 96365; 96366; 96367; 99024; 99285; 99291; C1758; J0690; J1953; J2060; J2250; J3010; P9047

== ENCOUNTER 2020-09-11 15:28 | Emergency (ER) | payer OTHER, MEDICAID, SELFPAY ==
--- NOTE | ~2020-09-11 | XR_ITS ---
EXAMINATION: XR CHEST CLINICAL INFORMATION: Weakness COMPARISON: Previous chest x-rays most recent 09/03/[address] April 2020 TECHNIQUE: Frontal view of the chest was obtained. FINDINGS: The cardiac silhouette is slightly enlarged but stable. There is a left subclavian dual chamber pacemaker that appears unchanged. There may be may be pulmonary venous redistribution. There is a small left pleural effusion. This appears increased from previous exams. There may be adjacent left lower lobe atelectasis or consolidation. There is no right pleural effusion. There are degenerative changes of the spine XR/XR chest 1V IMPRESSION: Enlarged cardiac silhouette. Pulmonary venous redistribution and increasing left pleural effusion. Findings are questionable for mild CHF. There may be adjacent left lower lobe atelectasis/consolidation.
--- NOTE | 2020-09-11 15:39 | ECG_ITS ---
Test Reason : CHEST PAIN Blood Pressure : / mmHG Vent. Rate : 100 BPM Atrial Rate : 100 BPM P-R Int : 104 ms QRS Dur : 082 ms QT Int : 368 ms P-R-T Axes : -05 -04 193 degrees QTc Int : 474 ms Sinus rhythm with short WI with Premature atrial complexes ST & T wave abnormality, consider anterior ischemia Abnormal ECG When compared with ECG of 08-SEP-2020 21:53, Sinus rhythm has replaced Atrial fibrillation Referred By: Liya Jacob Electronically Signed By:Nirmal Magaña
[2020-09-11 15:42] VITALS: BP 101/59; BP 110/62; PULSE 100; PULSE 80; RESP 26; TEMP 37.6; BMI 28.2
[2020-09-11 15:49] VITALS: BP 101/59; PULSE 100; RESP 26; TEMP 37.6
--- NOTE | 2020-09-11 15:58 | PC.NURSE ---
pt arrives from SNF for abnormal labs. on arrival pt vague, not answering questions but knows her name and denies pain though is moaning. Pt arrived soiled with small amount of stool incontinence, was cleaned. Noted three small open areas to coccyx, present on arrival to ER. Scant bloody drainage on brief pt arrived in. Provider to bedside.
[2020-09-11 16:00] VITALS: BP 101/59; PULSE 100; RESP 26; TEMP 37.6
--- NOTE | 2020-09-11 16:25 | ED.GENADULT ---
HPI - General Adult General Chief complaint: General Medical <SUMA Hernandes - Last Filed: 09/11/20 20:54> Stated complaint: abnormal labs <SUMA Hernandes - Last Filed: 09/11/20 20:54> Time Seen by Provider: 09/11/20 15:39 <SUMA Hernandes - Last Filed: 09/11/20 20:54> Source: family, EMS, RN notes reviewed and old records reviewed <SUMA Hernandes - Last Filed: 09/11/20 20:54> Mode of arrival: EMS <SUMA Hernandes - Last Filed: 09/11/20 20:54> History of Present Illness HPI narrative: 74-year-old female with a past medical history significant for HTN, HLD, Parkinson disease, paroxysmal a-fib not on blood thinners, s/p pacemaker, dysphagia, pulmonary nodules and latent TB who also who had new onset seizures and was started on Keppra, discharged from our facility yesterday for profound hypotension/failure to thrive s/p PEG tube placement sent to SNF for Hospice care BIBA from group home for low H&H noted on outpatient labs today w/hemoglobin 5.7/16.5, sent to ED for further evaluation <SUMA Hernandes - Last Filed: 09/11/20 20:54> Onset (ago): day(s) <SUMA Hernandes - Last Filed: 09/11/20 20:54> Related Data Home medications: Home Medications Medication Instructions Recorded Confirmed atorvastatin 40 mg PO DAILY 09/03/20 09/03/20 levetiracetam 125 mg PO BID 09/03/20 09/03/20 polyvinyl alcohol 1 drp OPHTHALMIC (EYE) QID 09/03/20 09/03/20 Previous Rx's Medication Instructions Recorded polyethylene glycol 3350 17 17 g PO DAILY #238 g 05/26/20 gram/dose oral powder sotalol 80 mg tablet 80 mg PO BID 30 Days #60 tab 05/26/20 carbidopa-levodopa 2 tab G-TUBE 5XD #1 tab 09/10/20 mirtazapine [Remeron SolTab] 15 mg FEEDING TUBE BEDTIME #0 tab 09/10/20 promethazine 12.5 mg FEEDING TUBE DAILY PRN #0 09/10/20 tab promethazine 25 mg FEEDING TUBE 0700,1100,1600 09/10/20 #0 tab ropinirole 0.5 mg FEEDING TUBE TID #90 tab 09/10/20 <SUMA Hernandes - Last Filed: 09/11/20 20:54> Allergies/adverse reactions: Allergies Allergy/AdvReac Type Severity Reaction Status Date / Time Sulfa (Sulfonamide Allergy Unknown Unknown Verified 05/26/20 15:19 Antibiotics) tuberculin, purified protein Allergy Unknown Verified 05/26/20 15:19 deriva [From Tubersol] <SUMA Hernandes - Last Filed: 09/11/20 20:54> Review of Systems Review of Systems: History not obtainable secondary to patient's baseline mental status <SUMA Hernandes - Last Filed: 09/11/20 20:54> [facility] Past Medical History Attestation statement: The following information was validated with the patient. <SUMA Hernandes - Last Filed: 09/11/20 20:54> Medical History: Medical History Anxiety Depressed affect Dysphagia HTN (hypertension) Hyperlipemia 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 Pacemaker Parkinson disease Paroxysmal A-fib Pulmonary nodules/lesions, multiple Restless leg syndrome <SUMA Hernandes - Last Filed: 09/11/20 20:54> Surgical History: Surgical History History of bladder surgery <SUMA Hernandes - Last Filed: 09/11/20 20:54> Social History Social History: Social History Alcohol intake: unknown Smoking Status: Unknown if ever smoked Use of substances other than those prescribed or required for medical reasons: Unknown Advance Directives: No Advance Directives Information Provided: Yes service: No Current occupational status: disabled <SUMA Hernandes - Last Filed: 09/11/20 20:54> Physical Exam Vital Signs: Vital Signs: Last Vital Signs Temp 99.6 F 09/11/20 16:00 Pulse 100 09/11/20 16:00 Resp 26 H 09/11/20 16:00 BP 101/59 L 09/11/20 16:00 Body Mass Index 28.2 <SUMA Hernandes - Last Filed: 09/11/20 20:54> Vital Signs: Last Vital Signs Temp 99.6 F 09/11/20 16:00 Pulse 100 09/11/20 16:00 Resp 26 H 09/11/20 16:00 BP 101/59 L 09/11/20 16:00 Body Mass Index 28.2 <Marcio Rahman MD - Last Filed: 09/11/20 17:56> Const: Other: Responds to verbal stimuli, baseline altered/ nonverbal <SUMA Hernandes - Last Filed: 09/11/20 20:54> HENMT: Head: Yes normal to inspection <SUMA Hernandes - Last Filed: 09/11/20 20:54> Ears: hearing grossly normal bilaterally <SUMA Hernandes - Last Filed: 09/11/20 20:54> General nose exam: Normal external nose present <SUMA Hernandes - Last Filed: 09/11/20 20:54> Face and sinus: Yes normal facial exam <SUMA Hernandes - Last Filed: 09/11/20 20:54> Eyes: General: appearance normal, both eyes and all related structures <SUMA Hernandes - Last Filed: 09/11/20 20:54> Neck: Neck: Yes normal visual inspection <SUMA Hernandes - Last Filed: 09/11/20 20:54> Resp: Effort & Inspection: normal respiratory effort <SUMA Hernandes - Last Filed: 09/11/20 20:54> Auscultation: diminished lung sounds diffuse <SUMA Hernandes - Last Filed: 09/11/20 20:54> Cardio: Rate: regular rate <SUMA Hernandes - Last Filed: 09/11/20 20:54> Heart sounds: S1 normal heart sound present and S2 normal heart sound present <SUMA Hernandes - Last Filed: 09/11/20 20:54> GI: Other: PEG tube in place without signs of surrounding infection <SUMA Hernandes - Last Filed: 09/11/20 20:54> Inspection: Yes normal to inspection <SUMA Hernandes - Last Filed: 09/11/20 20:54> Palpation (GI): Soft to palpation, Tenderness to palpation present (GI) (diffusely), no guarding and not rigid <SUMA Hernandes - Last Filed: 09/11/20 20:54> Skin: General skin exam: pallor <SUMA Hernandes - Last Filed: 09/11/20 20:54> Extrem: General: Yes normal to inspection and Yes no pedal edema <SUMA Hernandes - Last Filed: 09/11/20 20:54> Course Course Course Narrative: -labs and CXR were ordered prior to knowing patient's hospice/code status. XR chest 1V IMPRESSION: Enlarged cardiac silhouette. Pulmonary venous redistribution and increasing left pleural effusion. Findings are questionable for mild CHF. There may be adjacent left lower lobe atelectasis/consolidation. 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 Occult stool negative 2044--spoke to patient's daughter again on the phone to verify [employer]BAC[employer] WAREHOUSE MANAGER wishes, daughter is in agreement. Plan for case management consult in the morning. 2099-- ED care transferred to Dr. Rahman pending CM consult for [employer] WAREHOUSE MANAGER <SUMA Hernandes - Last Filed: 09/11/20 20:54> Reevaluation(s) Reevaluation #1: Case discussed with patient's family decided to have comfort supportive care for now they will have family meeting and decide further course of treatment <Marcio Rahman MD - Last Filed: 09/11/20 17:56> Time: 17:55 <Marcio Rahman MD - Last Filed: 09/11/20 17:56> Medical Decision Making [facility] Narrative Medical decision making narrative: 74-year-old female with a past medical history significant for HTN, HLD, Parkinson disease, paroxysmal a-fib not on blood thinners, s/p pacemaker, dysphagia, pulmonary nodules and latent TB who also who had new onset seizures and was started on Keppra, discharged from our facility yesterday for profound hypotension/failure to thrive s/p PEG tube placement sent to SNF for Hospice care BIBA from group home for low H&H noted on outpatient labs today w/hemoglobin 5.7. Of note patient is DNR/DNI and Jehovah witness, not to receive any blood products. This was confirmed with patient's daughter/healthcare proxy Komal Leone. Komal was also spoken to by Dr. 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 Plan: Occult stool, [employer] WAREHOUSE MANAGER <SUMA Hernandes - Last Filed: 09/11/20 20:54> Lab Data Labs: Lab Results 09/11/20 Range/Units 16:31 Stool Occult Blood NEG (NEG) <SUMA Hernandes - Last Filed: 09/11/20 20:54> Lab Results 09/11/20 Range/Units 16:31 Stool Occult Blood NEG (NEG) <Marcio Rahman MD - Last Filed: 09/11/20 17:56> Discharge Plan Discharge Clinical Impression: Anemia <SUMA Hernandes - Last Filed: 09/11/20 20:54> Prescriptions: No Action atorvastatin 40 mg Tablet 40 mg PO DAILY RF: 0 polyvinyl alcohol 1.4 % Drops 1 drp OPHTHALMIC (EYE) QID RF: 0 levetiracetam 250 mg Tablet 125 mg PO BID RF: 0 carbidopa-levodopa 25-100 mg Tablet 2 tab G-tube 5XD Qty: 1 RF: 0 promethazine 12.5 mg Tablet 12.5 mg feeding tube DAILY PRN (Reason: Nausea) Qty: 0 RF: 0 promethazine 12.5 mg Tablet 25 mg feeding tube 0700,1100,1600 Qty: 0 RF: 0 ropinirole 0.5 mg tablet 0.5 mg feeding tube TID Qty: 90 RF: 0 mirtazapine [Remeron SolTab] 15 mg Tablet,Disintegrating 15 mg feeding tube BEDTIME Qty: 0 RF: 0 <SUMA Hernandes - Last Filed: 09/11/20 20:54>
[2020-09-11 16:36] LABS: OBS Int Ctl Valid YES; OBS1 NEG (NEG)
--- NOTE | 2020-09-11 20:48 | PC.NURSE ---
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 daughter wants pts feedings to continue, jevity feeding to peg tube. ok to take vitals to assess pt status so that family can be called when the pt turns for the worst. dnr din no blood products. case management in the morning. plan is to send pt home to pass with family.
[2020-09-12 00:37] VITALS: BP 87/58; PULSE 94; RESP 24; O2SAT 96
--- NOTE | 2020-09-12 00:39 | PC.NURSE ---
pt is able to state she is in no pain. 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
--- NOTE | 2020-09-12 01:09 | PC.NURSE ---
high residual from tube feed, feed held at this time.
[2020-09-12 04:53] VITALS: BP 90/55; PULSE 97; RESP 16; O2SAT 95
--- NOTE | 2020-09-12 06:30 | PC.NURSE ---
pt resting comfortably, answers to question asked if in pain and pt states no that she is comfortable, warm blanket given pt has redness to coxxyc.
[2020-09-12 09:04] VITALS: BP 113/57; PULSE 62; RESP 14
--- NOTE | 2020-09-12 10:00 | PC.NURSE ---
assessed g-tube patency by auscultating air in stomach. g-tube is intact and patent. skin surround g-tube warm and dry, no redness or evidence of skin breakdown noted. pt was cleaned and repositioned by staff, gown and linens changed. mouth care was also provided. While cleaning patient, photographs were taken of open area on buttocks. there are three small open areas all smaller than a dime. aware.
--- NOTE | 2020-09-12 11:03 | MHC.CM.ED ---
i spoke c pt's daughter, adonay, earlier today. her wishes are to have patient be dc'd from the e.d. to her home on hospice. she does want the tube feedings to be continued at this time. she requested a ref. be made to [facility] as the last time a ref. was made to [facility] the patient was denied. this ref. to [place] has been made. waiting to hear back from [place] at this time. cm to cont. to follow.
[2020-09-12 13:13] VITALS: BP 128/109; PULSE 68; RESP 16; O2SAT 94
--- NOTE | 2020-09-12 14:01 | MHC.CM.ED ---
pt is accepted by [facility], she is dc'ing?to her daughter's home in [place] or tomorrow. will keep e.d. staff notified of timing of this. cm to cont. to follow.
--- NOTE | 2020-09-12 14:12 | PC.NURSE ---
Jevity started at 55ml/hr
[2020-09-12 15:19] VITALS: BP 91/56; PULSE 98; RESP 16; O2SAT 95
--- NOTE | 2020-09-12 16:08 | MHC.CM.ED ---
pt is accepted by [facility], she is dc'ing?to her daughter's home in [facility] [place] tomorrow[place] [facility] [place] ph number given to coordinator at [facility] will keep e.d. staff notified of timing of this. [facility] coordinator ph no: [phone], Carlee Clarke. cm to cont. to follow.
--- NOTE | 2020-09-12 16:09 | PC.NURSE ---
REPORT TAKEN FROM [facility] PT ON COMFORT MEASURES D/T LOW H+H AND DNR/DNI STATUS. PT IS JUDAISM AND WILL NOT RECEIVE BLOOD PRODUCTS. PT BEING REPOSITIONED Q2HRS R/T DOCUMENTED PRESSURE WOUNDS.
== END 2020-09-12 18:16 | disposition home or self-care (01) ==
PROVIDERS: Physician Assistant; Emergency Provider Emergency Medicine; PCP Internal Medicine
DX: D64.9 Anemia, unspecified (principal); R62.7 Adult failure to thrive; I10 Essential (primary) hypertension; Z95.0 Presence of cardiac pacemaker; G20 Parkinson's disease; I48.0 Paroxysmal atrial fibrillation; Z79.899 Other long term (current) drug therapy
CPT/HCPCS: 71045; 82272; 93005; 99283; 99284